=== PATIENT | female | born 1940 | race Caucasian/White ===

== ENCOUNTER 2017-03-22 20:33 | Inpatient (IN) | payer MEDICARE, MEDICAID ==
--- NOTE | 2017-03-22 21:59 | ED Physician Chart ---
ED Chief Complaint/HPI - Patient Information Date Seen:: 03/22/17 Time Seen:: 21:56 Chief Complaint:: COPD exacerbation History of Present Illness:: 76 yo difficulty breathing, 96% on 2LNC, 84% on rm air, cough and wheezing, congestion for 1 day. Fever 99.9 F. Allergies:: Allergies Allergy/AdvReac Type Severity Reaction Status Date / Time No Known Allergies Allergy Verified 03/22/17 21:14 Vitals:: Vital Signs - 8 hr 03/22/17 20:40 Temp 99.0 F HR 90 RR 20 BP 137/60 O2 Sat % 96 ED Past Medical History - Past Medical History Past Medical History: HTN (umbilica), DM, Asthma/COPD, CVA/TIA, Seizures, Dementia, Other (gastritis, colitis, umbilical hernia, anemia, hydrocephalus, ) Social History: Non Smoker, No Alcohol, No Drug Use Psychiatricy History: Schizophrenia, Other (psychosis) Family Medical History - Family Member Mother History Unknown: Yes ED Septic Shock - <6hrs of presentation: Vital Signs: Vital Signs - 8 hr 03/22/17 20:40 Temp 99.0 F HR 90 RR 20 BP 137/60 O2 Sat % 96
[2017-03-22 22:19] LABS: WHITE BLOOD COUNT 7.2 Th/cmm (4.8-10.8)
[2017-03-22 22:20] LABS: % BASOPHILS 0.4 % (0.0-2.0); % EOSINOPHILS 0.6 % (0.0-5.0); % LYMPHOCYTES 15.1 % (20.0-50.0); % MONOCYTES 9.6 % (2.0-10.0); % NEUTROPHILS 74.3 % (40.0-80.0); LYMPHOCYTE ABSOLUTE 1.1 Th/cmm (1.5-3.0); MEAN CORPUSCULAR HEMOGLOBIN 27.7 pg (27.0-31.0); MEAN CORPUSCULAR HGB CONC 32.6 pg (28.0-36.0); MEAN PLATELET VOLUME 6.5 fl; MONOCYTE ABSOLUTE 0.7 Th/cmm (0.3-1.0); NEUTROPHILE ABSOLUTE 5.4 Th/cmm (1.8-8.0); PLATELET COUNT 235 Th/cmm (150-400); RED CELL DISTRIBUTION WIDTH 12.6 % (11.5-20.0)
[2017-03-22 22:21] LABS: HEMATOCRIT 30.6 % (41.0-60)
[2017-03-22] MEDS ORDERED: Albuterol/Ipratropium Neb 3 ML AERS HHN ONE ×2 (22:46→23:07)
[2017-03-22 22:57] LABS: ANION GAP 8.7 (7.0-16.0); BUN - UREA NITROGEN 16 mg/dL (7-25); CARBON DIOXIDE 33.5 mEq/L (21.0-31.0); CHLORIDE 88 mEq/L (98-107); CREATININE - SERUM 0.6 mg/dL (0.6-1.2); GLUCOSE 158 mg/dL (70-105); POTASSIUM SERUM 4.2 mEq/L (3.5-5.1); SODIUM SERUM 126 mEq/L (136-145)
[2017-03-22 22:58] LABS: ALB/GLOB RATIO 1.2 (1.0-1.8); ALBUMIN 3.6 gm/dL (3.7-5.3); ALKALINE PHOSPHATASE 90 U/L (34-104); BILIRUBIN,TOTAL 0.2 mg/dL (0.3-1.0); CALCIUM SERUM 9.1 mg/dL (8.6-10.3); SGOT 18 U/L (13-39); SGPT/ALT 13 U/L (7-52); TOTAL PROTEIN,SERUM 6.6 gm/dL (6.0-8.3)
[2017-03-22] MEDS ORDERED: Sodium Chloride 0.9% 1,000 ML IV ONE (23:01)
[2017-03-22] MEDS ORDERED: Magnesium Hydroxide (MOM) 30 mL UDC PO PRN (23:25)
[2017-03-22] MEDS ORDERED: Albuterol Nebulizer 2.5mg/3mL HHN PRN (23:27)
[2017-03-23] MEDS ORDERED: Albuterol/Ipratropium Neb 3 ML AERS HHN ONE (04:05)
[2017-03-23] MEDS ORDERED: Albuterol Nebulizer 2.5mg/3mL HHN ONE (06:59)
[2017-03-23] MEDS: Albuterol Nebulizer 2.5mg/3mL HHN SCH ×2 (08:23→20:04)
--- NOTE | 2017-03-23 08:25 | Diagnostic Imaging Report ---
Portable chest x-ray HISTORY: Shortness of breath The heart appears somewhat generous. Elevation the right hemidiaphragm. Atherosclerotic calcination seen in the aortic arch. No acute focal pulmonary processes. No hilar or mediastinal abnormalities. Degenerative changes noted throughout the spine along with the scoliosis. IMPRESSION: 1. No acute focal pulmonary processes 2. Generous heart size with atherosclerotic vascular changes 3. Degenerative changes and scoliosis within the spine.
--- NOTE | 2017-03-23 11:24 | Internal Medicine Prog Note ---
Internal Medicine Subjective - Subjective Service Date: 03/23/17 ([id number] [facility] dictated) Internal Medicine Objective - Results Result Diagrams: 03/22/17 21:45 03/22/17 21:45 Recent Labs: Laboratory Last Values WBC 7.2 Th/cmm (4.8-10.8) 03/22/17 21:45 RBC 3.60 Mil/cmm (3.80-5.20) L 03/22/17 21:45 Hgb 10.0 gm/dL (12-16) L D 03/22/17 21:45 Hct 30.6 % (41.0-60) L D 03/22/17 21:45 MCV 85.0 fl (81-100) 03/22/17 21:45 MCH 27.7 pg (27.0-31.0) 03/22/17 21:45 MCHC Differential 32.6 pg (28.0-36.0) 03/22/17 21:45 RDW 12.6 % (11.5-20.0) 03/22/17 21:45 Plt Count 235 Th/cmm (150-400) 03/22/17 21:45 MPV 6.5 fl 03/22/17 21:45 Neutrophils % 74.3 % (40.0-80.0) 03/22/17 21:45 Lymphocytes % 15.1 % (20.0-50.0) L 03/22/17 21:45 Monocytes % 9.6 % (2.0-10.0) 03/22/17 21:45 Eosinophils % 0.6 % (0.0-5.0) 03/22/17 21:45 Basophils % 0.4 % (0.0-2.0) 03/22/17 21:45 Sodium 126 mEq/L (136-145) L 03/22/17 21:45 Potassium 4.2 mEq/L (3.5-5.1) 03/22/17 21:45 Chloride 88 mEq/L (98-107) L 03/22/17 21:45 Carbon Dioxide 33.5 mEq/L (21.0-31.0) H 03/22/17 21:45 Anion Gap 8.7 (7.0-16.0) 03/22/17 21:45 BUN 16 mg/dL (7-25) 03/22/17 21:45 Creatinine 0.6 mg/dL (0.6-1.2) 03/22/17 21:45 Est GFR ( Amer) TNP 03/22/17 21:45 Est GFR (Non-Af Amer) TNP 03/22/17 21:45 BUN/Creatinine Ratio 26.7 03/22/17 21:45 Glucose 158 mg/dL (70-105) H 03/22/17 21:45 Whole Bld Lactic Acid 0.77 mmol/L (0.60-1.99) 03/22/17 21:45 Calcium 9.1 mg/dL (8.6-10.3) 03/22/17 21:45 Total Bilirubin 0.2 mg/dL (0.3-1.0) L 03/22/17 21:45 AST 18 U/L (13-39) 03/22/17 21:45 ALT 13 U/L (7-52) 03/22/17 21:45 Alkaline Phosphatase 90 U/L (34-104) 03/22/17 21:45 Troponin I 0.02 ng/mL (0.01-0.05) 03/22/17 21:45 B-Natriuretic Peptide 63.4 pg/mL (5.0-100.0) 03/22/17 21:45 Total Protein 6.6 gm/dL (6.0-8.3) 03/22/17 21:45 Albumin 3.6 gm/dL (3.7-5.3) L 03/22/17 21:45 Globulin 3.0 gm/dL 03/22/17 21:45 Albumin/Globulin Ratio 1.2 (1.0-1.8) 03/22/17 21:45 - Physical Exam Vitals and I&O: Vital Signs Temp 97.6 F 03/23/17 08:09 Pulse 94 03/23/17 08:25 Resp 17 03/23/17 08:25 BP 150/54 03/23/17 08:09 Pulse Ox 99 03/23/17 08:25 Intake & Output 03/22/17 03/23/17 03/23/17 18:59 06:59 18:59 Intake Total 2100 Balance 2100 Intake: Intake, IV Amount 2100 Cefepime 1 gm In Dextrose 50 5% 50 ml @ 100 mls/hr IV Q12H [facility] Rx#:[id number] Sodium Chloride 0.9% 1, 1000 000 ml @ Wide Open IV . Q0M [facility] Rx#:[id number] Active Medications: Current Medications Acetaminophen (Tylenol) 650 mg PO Q4HR PRN PRN Reason: Pain or Fever >101 Stop: 05/21/17 23:24 Acetaminophen (Tylenol) 650 mg PO Q4H PRN PRN Reason: Pain Or Fever above 101 Stop: 05/21/17 23:26 Albuterol Sulfate (Albuterol 2.5mg/3ml Neb Ud) 2.5 mg HHN BIDRT [facility] Stop: 05/22/17 06:59 Last Admin: 03/23/17 08:23 Dose: 2.5 mg Albuterol Sulfate (Albuterol 2.5mg/3ml Neb Ud) 2.5 mg HHN Q2HRT PRN PRN Reason: Shortness of Breath or Wheeze Stop: 05/21/17 23:26 Ascorbic Acid (Vitamin C) 500 mg PO BID [facility] Stop: 05/22/17 08:59 Bisacodyl (Dulcolax 10 Mg Supp) 10 mg RC DAILY PRN PRN Reason: Constipation Stop: 05/21/17 23:24 Calcium Acetate (Phoslo) 1,334 mg PO TID [facility] Stop: 05/22/17 08:59 Cyanocobalamin (Vitamin B12) 1,000 mcg PO DAILY [facility] Stop: 05/22/17 08:59 Famotidine (Pepcid) 20 mg PO BID [facility] Stop: 05/22/17 08:59 Ferrous Sulfate (Iron) 325 mg PO BID [facility] Stop: 05/22/17 08:59 Fish Oil ([place] 3) 1,000 mg PO BID [facility] Stop: 05/22/17 08:59 Hydralazine HCl (Apresoline) 100 mg PO BID [facility] Stop: 05/22/17 08:59 Cefepime HCl 1 gm/ Dextrose 50 mls @ 100 mls/hr IV Q12H [facility] Stop: 05/21/17 23:29 Last Infusion: 03/23/17 00:05 Dose: Infused Sodium Chloride (Nacl 0.9%) 1,000 mls @ 80 mls/hr IV .[id number] [facility] Stop: 05/21/17 23:29 Last Admin: 03/23/17 00:00 Dose: 80 mls/hr Ipratropium [place] (Atrovent Neb 0.5mg/2.5ml) 0.5 mg IH Q2HRT PRN PRN Reason: Shortness of Breath or Wheeze Stop: 05/21/17 23:26 Lisinopril (Zestril) 20 mg PO BID [facility] Stop: 05/22/17 08:59 Magnesium Hydroxide (Milk Of Magnesia) 30 ml PO DAILY PRN PRN Reason: Constipation Stop: 05/21/17 23:24 Metformin HCl (Glucophage) 500 mg PO DAILY [facility] Stop: 05/22/17 08:59 Ondansetron HCl (Zofran) 4 mg IV Q8H PRN PRN Reason: Nausea / Vomiting Stop: 05/21/17 23:26 Risperidone (Risperdal) 1 mg PO HS [facility] PRN Reason: Protocol Stop: 05/22/17 20:59 Vitamin D (Vitamin D) 800 iu PO DAILY [facility] Stop: 05/22/17 08:59 - Procedures Procedures: Procedures Procedure Code Date ASPIR CURETT UTERUS NEC 69.59 10/29/11 BIOPSY OF CERVIX 59176 09/05/94 CERVICAL LES DESTRUC NEC 67.39 09/05/94 CONTINUOUS INVASIVE MECHANICAL VENTILATION <96 CONSEC HRS 96.71 09/01/14 D & C NEC 69.09 09/05/94 DILATION AND CURETTAGE 34135 10/29/11 EMERGENCY DEPT VISIT 14490 05/28/11 GENITAL SURGERY PROCEDURE 15877 09/05/94 HYMENORRHAPHY 70.76 09/05/94 HYMENOTOMY 70.11 09/05/94 INCISION OF HYMEN 60278 09/05/94 LAPAROSCOPIC CHOLECYSTECTOMY 51.23 11/29/06 LAPAROSCOPIC CHOLECYSTECTOMY 42908 11/29/06 OTHER OPEN UMBILICAL HERNIORRHAPHY 53.49 11/29/06 RPR UMBIL JIHAN BLOCK > 5 YR 75575 11/29/06
[2017-03-23] MEDS: Fish Oil 1,000 MG SGL PO SCH ×2 (12:58→18:02)
[2017-03-23] MEDS: Ferrous Sulfate 325 MG TAB PO SCH ×2 (12:58→18:03)
[2017-03-23] MEDS: Multivitamin w/ Minerals Tab PO SCH (12:58)
[2017-03-23] MEDS: Sodium Chloride 0.9% 1,000 ML IV SCH ×2 (13:01)
--- NOTE | 2017-03-23 13:31 | History & Physical ---
ADMIT DATE: 03/23/2017 CHIEF COMPLAINT: Shortness of breath and wheezing. HISTORY OF PRESENT ILLNESS: This is a 76-year-old female who is a resident of [facility], was brought here to [facility] for 1-day history of productive cough and wheezing and congestion x1 day, also associated with low grade fevers. Upon examination, the patient is awake, nonverbal febrile. For further management the patient will be admitted to the med-surg unit. PAST MEDICAL HISTORY: Hypertension, diabetes, asthma, COPD, history of CVA, TIA, seizures, dementia, gastritis, colitis, umbilical hernia, anemia hydrocephalus. SOCIAL HISTORY: The patient is a skilled nursing resident, requiring 24-hour nursing care. REVIEW OF SYSTEMS: Unable to obtain due to patient's mental status. PHYSICAL EXAMINATION: GENERAL: This is an elderly female, awake, nonverbal, no apparent distress. VITAL SIGNS: Temperature 97.6, heart rate 93, blood pressure 150/54, respirations 22, O2 95%. HEENT: Head; normocephalic, atraumatic. NECK: Supple. No mass. LUNGS: Rhonchi bilaterally rhythm. ABDOMEN: Soft, nontender. LABORATORY DATA: WBC 7.2, H and H 10.0 and 30.6, platelet of 235. Sodium 126, potassium 4.2, chloride 88, BUN 16, creatinine 0.6, albumin 3.6. DIAGNOSTICS: The patient had a chest x-ray done and the impression is no acute focal pulmonary processes, heart size with atherosclerotic vascular changes, degenerative changes and scoliosis within the spine. ASSESSMENT: Acute chronic obstructive pulmonary disease exacerbation. Possible pneumonia, hyponatremia, protein-calorie malnutrition, hypertension, diabetes, asthma, COPD, seizures, dementia, gastritis, umbilical hernia, anemia, schizophrenia. PLAN: The patient to be admitted to the telemetry unit. Keep patient on IV fluids for hydration. We will get some bronchodilators as well as supplemental oxygen. Keep patient on empiric IV antibiotics. We will continue to monitor this patient. JOB# [id number]
[2017-03-24] MEDS: Ipratropium Neb 0.5 mg/2.5 mL UD IH PRN ×3 (05:00→20:05)
[2017-03-24 05:59] LABS: % BASOPHILS 0.2 % (0.0-2.0); % EOSINOPHILS 0.4 % (0.0-5.0); % LYMPHOCYTES 14.1 % (20.0-50.0); % MONOCYTES 7.7 % (2.0-10.0); % NEUTROPHILS 77.6 % (40.0-80.0); HEMATOCRIT 30.1 % (41.0-60); LYMPHOCYTE ABSOLUTE 1.6 Th/cmm (1.5-3.0); MEAN CELL VOLUME 84.7 fl (81-100); MEAN CORPUSCULAR HEMOGLOBIN 28.1 pg (27.0-31.0); MEAN CORPUSCULAR HGB CONC 33.2 pg (28.0-36.0); MEAN PLATELET VOLUME 6.6 fl; MONOCYTE ABSOLUTE 0.9 Th/cmm (0.3-1.0); NEUTROPHILE ABSOLUTE 8.6 Th/cmm (1.8-8.0); PLATELET COUNT 205 Th/cmm (150-400); RED BLOOD COUNT 3.56 Mil/cmm (3.80-5.20); RED CELL DISTRIBUTION WIDTH 12.4 % (11.5-20.0)
[2017-03-24 06:00] LABS: WHITE BLOOD COUNT 11.1 Th/cmm (4.8-10.8)
[2017-03-24 06:17] LABS: ANION GAP 5.4 (7.0-16.0); BUN - UREA NITROGEN 12 mg/dL (7-25); CARBON DIOXIDE 34.7 mEq/L (21.0-31.0); CHLORIDE 93 mEq/L (98-107); CREATININE - SERUM 0.5 mg/dL (0.6-1.2); GLUCOSE 115 mg/dL (70-105); POTASSIUM SERUM 4.1 mEq/L (3.5-5.1); SODIUM SERUM 129 mEq/L (136-145)
[2017-03-24] MEDS: Albuterol Nebulizer 2.5mg/3mL HHN SCH ×2 (07:50→20:05)
[2017-03-24] MEDS: Sodium Chloride 0.9% 1,000 ML IV SCH ×2 (09:07→13:19)
[2017-03-24] MEDS: Fish Oil 1,000 MG SGL PO SCH ×2 (09:09→16:38)
[2017-03-24] MEDS: Ferrous Sulfate 325 MG TAB PO SCH ×2 (09:09→16:38)
[2017-03-24] MEDS: Multivitamin w/ Minerals Tab PO SCH (09:10)
--- NOTE | 2017-03-24 15:58 | Internal Medicine Prog Note ---
Internal Medicine Subjective - Subjective Service Date: 03/24/17 Patient seen and examined:: with staff Patient is:: awake, verbal, confused Patient Complaints of:: cough Per staff patient has:: tolerating meds Internal Medicine Objective - Results Result Diagrams: 03/24/17 05:15 03/24/17 05:15 Recent Labs: Laboratory Last Values WBC 11.1 Th/cmm (4.8-10.8) H D 03/24/17 05:15 RBC 3.56 Mil/cmm (3.80-5.20) L 03/24/17 05:15 Hgb 10.0 gm/dL (12-16) L 03/24/17 05:15 Hct 30.1 % (41.0-60) L 03/24/17 05:15 MCV 84.7 fl (81-100) 03/24/17 05:15 MCH 28.1 pg (27.0-31.0) 03/24/17 05:15 MCHC Differential 33.2 pg (28.0-36.0) 03/24/17 05:15 RDW 12.4 % (11.5-20.0) 03/24/17 05:15 Plt Count 205 Th/cmm (150-400) 03/24/17 05:15 MPV 6.6 fl 03/24/17 05:15 Neutrophils % 77.6 % (40.0-80.0) 03/24/17 05:15 Lymphocytes % 14.1 % (20.0-50.0) L 03/24/17 05:15 Monocytes % 7.7 % (2.0-10.0) 03/24/17 05:15 Eosinophils % 0.4 % (0.0-5.0) 03/24/17 05:15 Basophils % 0.2 % (0.0-2.0) 03/24/17 05:15 Sodium 129 mEq/L (136-145) L 03/24/17 05:15 Potassium 4.1 mEq/L (3.5-5.1) 03/24/17 05:15 Chloride 93 mEq/L (98-107) L 03/24/17 05:15 Carbon Dioxide 34.7 mEq/L (21.0-31.0) H 03/24/17 05:15 Anion Gap 5.4 (7.0-16.0) L 03/24/17 05:15 BUN 12 mg/dL (7-25) 03/24/17 05:15 Creatinine 0.5 mg/dL (0.6-1.2) L 03/24/17 05:15 Est GFR ( Amer) TNP 03/24/17 05:15 Est GFR (Non-Af Amer) TNP 03/24/17 05:15 BUN/Creatinine Ratio 24.0 03/24/17 05:15 Glucose 115 mg/dL (70-105) H 03/24/17 05:15 Whole Bld Lactic Acid 0.77 mmol/L (0.60-1.99) 03/22/17 21:45 Calcium 9.0 mg/dL (8.6-10.3) 03/24/17 05:15 Total Bilirubin 0.2 mg/dL (0.3-1.0) L 03/22/17 21:45 AST 18 U/L (13-39) 03/22/17 21:45 ALT 13 U/L (7-52) 03/22/17 21:45 Alkaline Phosphatase 90 U/L (34-104) 03/22/17 21:45 Troponin I 0.02 ng/mL (0.01-0.05) 03/22/17 21:45 B-Natriuretic Peptide 63.4 pg/mL (5.0-100.0) 03/22/17 21:45 Total Protein 6.6 gm/dL (6.0-8.3) 03/22/17 21:45 Albumin 3.6 gm/dL (3.7-5.3) L 03/22/17 21:45 Globulin 3.0 gm/dL 03/22/17 21:45 Albumin/Globulin Ratio 1.2 (1.0-1.8) 03/22/17 21:45 - Physical Exam Vitals and I&O: Vital Signs Temp 97 F 03/24/17 12:00 Pulse 75 03/24/17 12:00 Resp 19 03/24/17 12:00 BP 119/43 03/24/17 12:00 Pulse Ox 100 03/24/17 12:00 Intake & Output 03/23/17 03/24/17 03/24/17 18:59 06:59 18:59 Intake Total 1050 1250 Balance 1050 1250 Weight (lbs) 116 lb 1.6 oz Intake: Intake, IV Amount 1050 1050 Cefepime 1 gm In Dextrose 50 50 5% 50 ml @ 100 mls/hr IV Q12H [facility] Rx#:[id number] Sodium Chloride 0.9% 1, 1000 1000 000 ml @ 80 mls/hr IV . [id number] [facility] Rx#:[id number] Oral 200 Other: # Voids 4 # Bowel Movements 0 Active Medications: Current Medications Acetaminophen (Tylenol) 650 mg PO Q4HR PRN PRN Reason: Pain or Fever >101 Stop: 05/21/17 23:24 Acetaminophen (Tylenol) 650 mg PO Q4H PRN PRN Reason: Pain Or Fever above 101 Stop: 05/21/17 23:26 Albuterol Sulfate (Albuterol 2.5mg/3ml Neb Ud) 2.5 mg HHN BIDRT [facility] Stop: 05/22/17 06:59 Last Admin: 03/24/17 07:50 Dose: 2.5 mg Albuterol Sulfate (Albuterol 2.5mg/3ml Neb Ud) 2.5 mg HHN Q2HRT PRN PRN Reason: Shortness of Breath or Wheeze Stop: 05/21/17 23:26 Last Admin: 03/24/17 05:00 Dose: 2.5 mg Ascorbic Acid (Vitamin C) 500 mg PO BID [facility] Stop: 05/22/17 08:59 Last Admin: 03/24/17 09:10 Dose: 500 mg Bisacodyl (Dulcolax 10 Mg Supp) 10 mg RC DAILY PRN PRN Reason: Constipation Stop: 05/21/17 23:24 Calcium Acetate (Phoslo) 1,334 mg PO TID [facility] Stop: 05/22/17 08:59 Last Admin: 03/24/17 13:10 Dose: 1,334 mg Cyanocobalamin (Vitamin B12) 1,000 mcg PO DAILY [facility] Stop: 05/22/17 08:59 Last Admin: 03/24/17 09:15 Dose: 1,000 mcg Famotidine (Pepcid) 20 mg PO BID [facility] Stop: 05/22/17 08:59 Last Admin: 03/24/17 09:09 Dose: 20 mg Ferrous Sulfate (Iron) 325 mg PO BID [facility] Stop: 05/22/17 08:59 Last Admin: 03/24/17 09:09 Dose: 325 mg Fish Oil ([place] 3) 1,000 mg PO BID [facility] Stop: 05/22/17 08:59 Last Admin: 03/24/17 09:09 Dose: 1,000 mg Hydralazine HCl (Apresoline) 100 mg PO BID [facility] Stop: 05/22/17 08:59 Last Admin: 03/24/17 09:14 Dose: 100 mg Cefepime HCl 1 gm/ Dextrose 50 mls @ 100 mls/hr IV Q12H [facility] Stop: 05/21/17 23:29 Last Admin: 03/24/17 12:15 Dose: 100 mls/hr Sodium Chloride (Nacl 0.9%) 1,000 mls @ 40 mls/hr IV .Q24H [facility] Stop: 05/21/17 23:29 Last Admin: 03/24/17 13:19 Dose: 40 mls/hr Ipratropium [place] (Atrovent Neb 0.5mg/2.5ml) 0.5 mg IH Q2HRT PRN PRN Reason: Shortness of Breath or Wheeze Stop: 05/21/17 23:26 Last Admin: 03/24/17 07:57 Dose: 0.5 mg Lisinopril (Zestril) 20 mg PO BID [facility] Stop: 05/22/17 08:59 Last Admin: 03/24/17 09:10 Dose: 20 mg Magnesium Hydroxide (Milk Of Magnesia) 30 ml PO DAILY PRN PRN Reason: Constipation Stop: 05/21/17 23:24 Metformin HCl (Glucophage) 500 mg PO DAILY [facility] Stop: 05/22/17 08:59 Last Admin: 03/24/17 09:15 Dose: 500 mg Ondansetron HCl (Zofran) 4 mg IV Q8H PRN PRN Reason: Nausea / Vomiting Stop: 05/21/17 23:26 Risperidone (Risperdal) 1 mg PO HS [facility] PRN Reason: Protocol Stop: 05/22/17 20:59 Vitamin D (Vitamin D) 800 iu PO DAILY [facility] Stop: 05/22/17 08:59 Last Admin: 03/24/17 09:15 Dose: 800 iu General: weak, alert HEENT: NC/AT, PERRLA Neck: Supple Lungs: wheezing Cardiovascular: RRR, Normal S1, Normal S2, without murmur Abdomen: soft, non-tender, non-distended, positive bowel sound Extremities: excoriation Neurological: alert, unable to follow command - Procedures Procedures: Procedures Procedure Code Date ASPIR CURETT UTERUS NEC 69.59 10/29/11 BIOPSY OF CERVIX 43468 09/05/94 CERVICAL LES DESTRUC NEC 67.39 09/05/94 CONTINUOUS INVASIVE MECHANICAL VENTILATION <96 CONSEC HRS 96.71 09/01/14 D & C NEC 69.09 09/05/94 DILATION AND CURETTAGE 37952 10/29/11 EMERGENCY DEPT VISIT 58067 05/28/11 GENITAL SURGERY PROCEDURE 81309 09/05/94 HYMENORRHAPHY 70.76 09/05/94 HYMENOTOMY 70.11 09/05/94 INCISION OF HYMEN 52672 09/05/94 LAPAROSCOPIC CHOLECYSTECTOMY 51.23 11/29/06 LAPAROSCOPIC CHOLECYSTECTOMY 46542 11/29/06 OTHER OPEN UMBILICAL HERNIORRHAPHY 53.49 11/29/06 RPR UMBIL JIHAN BLOCK > 5 YR 19577 11/29/06 Internal Medicine Assmt/Plan - Assessment Assessment: acute copd exacerbation possible pna hyponatremia protein calorie malnutrition htn dm-2 asthma seizures dementia gastritis umbilical hernia anemia schizophrenia - Plan Plan: will add solumedrol continue with inhalation tx follow up cxr in am empiric ivabx follow up labs in am continue current orders
[2017-03-25 05:33] LABS: % BASOPHILS 0.1 % (0.0-2.0); % EOSINOPHILS 0.1 % (0.0-5.0); % LYMPHOCYTES 8.8 % (20.0-50.0); % MONOCYTES 1.3 % (2.0-10.0); % NEUTROPHILS 89.7 % (40.0-80.0); HEMATOCRIT 28.6 % (41.0-60); HEMOGLOBIN 9.7 gm/dL (12-16); LYMPHOCYTE ABSOLUTE 0.7 Th/cmm (1.5-3.0); MEAN CELL VOLUME 83.4 fl (81-100); MEAN CORPUSCULAR HEMOGLOBIN 28.1 pg (27.0-31.0); MEAN CORPUSCULAR HGB CONC 33.7 pg (28.0-36.0); MEAN PLATELET VOLUME 6.9 fl; MONOCYTE ABSOLUTE 0.1 Th/cmm (0.3-1.0); NEUTROPHILE ABSOLUTE 7.5 Th/cmm (1.8-8.0); PLATELET COUNT 197 Th/cmm (150-400); RED BLOOD COUNT 3.43 Mil/cmm (3.80-5.20); RED CELL DISTRIBUTION WIDTH 12.5 % (11.5-20.0)
[2017-03-25 05:38] LABS: WHITE BLOOD COUNT 8.3 Th/cmm (4.8-10.8)
[2017-03-25 05:43] LABS: ANION GAP 5.2 (7.0-16.0); BUN - UREA NITROGEN 16 mg/dL (7-25); CALCIUM SERUM 9.5 mg/dL (8.6-10.3); CARBON DIOXIDE 37.5 mEq/L (21.0-31.0); CHLORIDE 94 mEq/L (98-107); CREATININE - SERUM 0.6 mg/dL (0.6-1.2); GLUCOSE 209 mg/dL (70-105); POTASSIUM SERUM 4.7 mEq/L (3.5-5.1); SODIUM SERUM 132 mEq/L (136-145)
[2017-03-25] MEDS: Albuterol Nebulizer 2.5mg/3mL HHN SCH ×2 (06:52→21:02)
[2017-03-25] MEDS: Ipratropium Neb 0.5 mg/2.5 mL UD IH PRN (06:53)
[2017-03-25] MEDS: Multivitamin w/ Minerals Tab PO SCH (08:56)
[2017-03-25] MEDS: Ferrous Sulfate 325 MG TAB PO SCH ×2 (08:57→16:25)
[2017-03-25] MEDS: Fish Oil 1,000 MG SGL PO SCH ×2 (08:57→16:25)
--- NOTE | 2017-03-25 09:22 | Diagnostic Imaging Report ---
CHEST X-RAY: AP view INDICATION: Wheezing COMPARISON: 03/22/2017 FINDINGS: Increased initial lung markings are noted with no focal solid or pleural effusions. Heart size is at the upper limits of normal. Atherosclerosis is noted. IMPRESSION: Increased interstitial lung markings suggestive of a mild degree of pulmonary vascular congestion. Faint infiltrative right infrahilar region cannot be excluded. Atherosclerotic vascular disease.
[2017-03-25 13:35] LABS: A1C % 7.2 % (4.0-6.0)
--- NOTE | 2017-03-25 13:57 | Internal Medicine Prog Note ---
Internal Medicine Subjective - Subjective Service Date: 03/25/17 Patient is:: awake, verbal, confused Patient Complaints of:: cough Per staff patient has:: tolerating meds Internal Medicine Objective - Results Result Diagrams: 03/25/17 05:15 03/25/17 05:15 Recent Labs: Laboratory Last Values WBC 8.3 Th/cmm (4.8-10.8) D 03/25/17 05:15 RBC 3.43 Mil/cmm (3.80-5.20) L 03/25/17 05:15 Hgb 9.7 gm/dL (12-16) L 03/25/17 05:15 Hct 28.6 % (41.0-60) L 03/25/17 05:15 MCV 83.4 fl (81-100) 03/25/17 05:15 MCH 28.1 pg (27.0-31.0) 03/25/17 05:15 MCHC Differential 33.7 pg (28.0-36.0) 03/25/17 05:15 RDW 12.5 % (11.5-20.0) 03/25/17 05:15 Plt Count 197 Th/cmm (150-400) 03/25/17 05:15 MPV 6.9 fl 03/25/17 05:15 Neutrophils % 89.7 % (40.0-80.0) H 03/25/17 05:15 Lymphocytes % 8.8 % (20.0-50.0) L 03/25/17 05:15 Monocytes % 1.3 % (2.0-10.0) L 03/25/17 05:15 Eosinophils % 0.1 % (0.0-5.0) 03/25/17 05:15 Basophils % 0.1 % (0.0-2.0) 03/25/17 05:15 Sodium 132 mEq/L (136-145) L 03/25/17 05:15 Potassium 4.7 mEq/L (3.5-5.1) 03/25/17 05:15 Chloride 94 mEq/L (98-107) L 03/25/17 05:15 Carbon Dioxide 37.5 mEq/L (21.0-31.0) H 03/25/17 05:15 Anion Gap 5.2 (7.0-16.0) L 03/25/17 05:15 BUN 16 mg/dL (7-25) 03/25/17 05:15 Creatinine 0.6 mg/dL (0.6-1.2) 03/25/17 05:15 Est GFR ( Amer) TNP 03/25/17 05:15 Est GFR (Non-Af Amer) TNP 03/25/17 05:15 BUN/Creatinine Ratio 26.7 03/25/17 05:15 Glucose 209 mg/dL (70-105) H 03/25/17 05:15 Hemoglobin A1c % 7.2 % (4.0-6.0) H 03/25/17 05:15 Whole Bld Lactic Acid 0.77 mmol/L (0.60-1.99) 03/22/17 21:45 Calcium 9.5 mg/dL (8.6-10.3) 03/25/17 05:15 Total Bilirubin 0.2 mg/dL (0.3-1.0) L 03/22/17 21:45 AST 18 U/L (13-39) 03/22/17 21:45 ALT 13 U/L (7-52) 03/22/17 21:45 Alkaline Phosphatase 90 U/L (34-104) 03/22/17 21:45 Troponin I 0.02 ng/mL (0.01-0.05) 03/22/17 21:45 B-Natriuretic Peptide 365.0 pg/mL (5.0-100.0) H 03/25/17 05:15 Total Protein 6.6 gm/dL (6.0-8.3) 03/22/17 21:45 Albumin 3.6 gm/dL (3.7-5.3) L 03/22/17 21:45 Globulin 3.0 gm/dL 03/22/17 21:45 Albumin/Globulin Ratio 1.2 (1.0-1.8) 03/22/17 21:45 - Physical Exam Vitals and I&O: Vital Signs Temp 98.2 F 03/25/17 12:02 Pulse 114 03/25/17 12:29 Resp 18 03/25/17 12:02 BP 170/90 03/25/17 12:02 Pulse Ox 97 03/25/17 12:02 Intake & Output 03/24/17 03/25/1703/25/18 18:59 06:59 18:59 Intake Total 200 50 Balance 200 50 Weight (lbs) 122 lb 119 lb Intake: Intake, IV Amount 50 50 Cefepime 1 gm In Dextrose 50 50 5% 50 ml @ 100 mls/hr IV Q12H [facility] Rx#:[id number] Oral 150 Other: # Voids 3 # Bowel Movements 1 Active Medications: Current Medications Acetaminophen (Tylenol) 650 mg PO Q4HR PRN PRN Reason: Pain or Fever >101 Stop: 05/21/17 23:24 Acetaminophen (Tylenol) 650 mg PO Q4H PRN PRN Reason: Pain Or Fever above 101 Stop: 05/21/17 23:26 Albuterol Sulfate (Albuterol 2.5mg/3ml Neb Ud) 2.5 mg HHN BIDRT [facility] Stop: 05/22/17 06:59 Last Admin: 03/25/17 06:52 Dose: 2.5 mg Albuterol Sulfate (Albuterol 2.5mg/3ml Neb Ud) 2.5 mg HHN Q2HRT PRN PRN Reason: Shortness of Breath or Wheeze Stop: 05/21/17 23:26 Last Admin: 03/24/17 05:00 Dose: 2.5 mg Ascorbic Acid (Vitamin C) 500 mg PO BID [facility] Stop: 05/22/17 08:59 Last Admin: 03/25/17 08:57 Dose: 500 mg Bisacodyl (Dulcolax 10 Mg Supp) 10 mg RC DAILY PRN PRN Reason: Constipation Stop: 05/21/17 23:24 Calcium Acetate (Phoslo) 1,334 mg PO TID [facility] Stop: 05/22/17 08:59 Last Admin: 03/25/17 13:39 Dose: 1,334 mg Cyanocobalamin (Vitamin B12) 1,000 mcg PO DAILY [facility] Stop: 05/22/17 08:59 Last Admin: 03/25/17 08:57 Dose: 1,000 mcg Famotidine (Pepcid) 20 mg PO BID [facility] Stop: 05/22/17 08:59 Last Admin: 03/25/17 08:57 Dose: 20 mg Ferrous Sulfate (Iron) 325 mg PO BID [facility] Stop: 05/22/17 08:59 Last Admin: 03/25/17 08:57 Dose: 325 mg Fish Oil ([place] 3) 1,000 mg PO BID [facility] Stop: 05/22/17 08:59 Last Admin: 03/25/17 08:57 Dose: 1,000 mg Hydralazine HCl (Apresoline) 100 mg PO BID [facility] Stop: 05/22/17 08:59 Last Admin: 03/25/17 08:56 Dose: 100 mg Cefepime HCl 1 gm/ Dextrose 50 mls @ 100 mls/hr IV Q12H [facility] Stop: 05/21/17 23:29 Last Admin: 03/25/17 11:57 Dose: 100 mls/hr Sodium Chloride (Nacl 0.9%) 1,000 mls @ 40 mls/hr IV .Q24H [facility] Stop: 05/21/17 23:29 Last Admin: 03/24/17 13:19 Dose: 40 mls/hr Ipratropium [place] (Atrovent Neb 0.5mg/2.5ml) 0.5 mg IH Q2HRT PRN PRN Reason: Shortness of Breath or Wheeze Stop: 05/21/17 23:26 Last Admin: 03/25/17 06:53 Dose: 0.5 mg Lisinopril (Zestril) 20 mg PO BID [facility] Stop: 05/22/17 08:59 Last Admin: 03/25/17 08:57 Dose: 20 mg Magnesium Hydroxide (Milk Of Magnesia) 30 ml PO DAILY PRN PRN Reason: Constipation Stop: 05/21/17 23:24 Metformin HCl (Glucophage) 500 mg PO DAILY [facility] Stop: 05/22/17 08:59 Last Admin: 03/25/17 08:57 Dose: 500 mg Methylprednisolone Sodium Succinate (Solu-Medrol) 80 mg IVP Q12HR [facility] Stop: 05/23/17 20:59 Last Admin: 03/25/17 08:57 Dose: 80 mg Ondansetron HCl (Zofran) 4 mg IV Q8H PRN PRN Reason: Nausea / Vomiting Stop: 05/21/17 23:26 Risperidone (Risperdal) 1 mg PO HS ROSS PRN Reason: Protocol Stop: 05/22/17 20:59 Vitamin D (Vitamin D) 800 iu PO DAILY [facility] Stop: 05/22/17 08:59 Last Admin: 03/25/17 08:56 Dose: 800 iu General: weak, alert HEENT: NC/AT, PERRLA Neck: Supple Lungs: wheezing Cardiovascular: RRR, Normal S1, Normal S2, without murmur Abdomen: soft, non-tender, non-distended, positive bowel sound Extremities: excoriation Neurological: alert, unable to follow command - Procedures Procedures: Procedures Procedure Code Date ASPIR CURETT UTERUS NEC 69.59 10/29/11 BIOPSY OF CERVIX 46139 09/05/94 CERVICAL LES DESTRUC NEC 67.39 09/05/94 CONTINUOUS INVASIVE MECHANICAL VENTILATION <96 CONSEC HRS 96.71 09/01/14 D & C NEC 69.09 09/05/94 DILATION AND CURETTAGE 57251 10/29/11 EMERGENCY DEPT VISIT 57355 05/28/11 GENITAL SURGERY PROCEDURE 52902 09/05/94 HYMENORRHAPHY 70.76 09/05/94 HYMENOTOMY 70.11 09/05/94 INCISION OF HYMEN 32409 09/05/94 LAPAROSCOPIC CHOLECYSTECTOMY 51.23 11/29/06 LAPAROSCOPIC CHOLECYSTECTOMY 22003 11/29/06 OTHER OPEN UMBILICAL HERNIORRHAPHY 53.49 11/29/06 RPR UMBIL JIHAN BLOCK > 5 YR 51686 11/29/06 Internal Medicine Assmt/Plan - Assessment Assessment: acute copd exacerbation possible pna hyponatremia protein calorie malnutrition htn dm-2 asthma seizures dementia gastritis umbilical hernia anemia schizophrenia - Plan Plan: will add solumedrol continue with inhalation tx follow up cxr in am empiric ivabx follow up labs in am continue current orders
[2017-03-26 05:19] LABS: % BASOPHILS 0.1 % (0.0-2.0); % EOSINOPHILS 0.1 % (0.0-5.0); % LYMPHOCYTES 11.3 % (20.0-50.0); % NEUTROPHILS 83.5 % (40.0-80.0); HEMATOCRIT 26.1 % (41.0-60); HEMOGLOBIN 8.6 gm/dL (12-16); LYMPHOCYTE ABSOLUTE 0.8 Th/cmm (1.5-3.0); MEAN CELL VOLUME 84.5 fl (81-100); MEAN CORPUSCULAR HEMOGLOBIN 27.9 pg (27.0-31.0); MEAN PLATELET VOLUME 7.2 fl; MONOCYTE ABSOLUTE 0.3 Th/cmm (0.3-1.0); NEUTROPHILE ABSOLUTE 5.7 Th/cmm (1.8-8.0); PLATELET COUNT 228 Th/cmm (150-400); RED BLOOD COUNT 3.09 Mil/cmm (3.80-5.20); RED CELL DISTRIBUTION WIDTH 12.3 % (11.5-20.0); WHITE BLOOD COUNT 6.8 Th/cmm (4.8-10.8)
[2017-03-26 05:31] LABS: ANION GAP 6.6 (7.0-16.0); BUN - UREA NITROGEN 29 mg/dL (7-25); CALCIUM SERUM 9.3 mg/dL (8.6-10.3); CARBON DIOXIDE 36.8 mEq/L (21.0-31.0); CHLORIDE 96 mEq/L (98-107); CREATININE - SERUM 0.8 mg/dL (0.6-1.2); GLUCOSE 280 mg/dL (70-105); POTASSIUM SERUM 4.4 mEq/L (3.5-5.1); SODIUM SERUM 135 mEq/L (136-145)
[2017-03-26] MEDS: Albuterol Nebulizer 2.5mg/3mL HHN SCH ×2 (06:42→19:40)
[2017-03-26] MEDS: Ipratropium Neb 0.5 mg/2.5 mL UD IH PRN (06:43)
[2017-03-26] MEDS: Ferrous Sulfate 325 MG TAB PO SCH ×2 (08:11→16:23)
[2017-03-26] MEDS: Fish Oil 1,000 MG SGL PO SCH ×2 (08:11→16:23)
[2017-03-26] MEDS: Multivitamin w/ Minerals Tab PO SCH (08:12)
[2017-03-26] MEDS: Sodium Chloride 0.9% 1,000 ML IV SCH (10:06)
[2017-03-26] MEDS ORDERED: Sodium Chloride 0.9% 1,000 ML IV SCH (12:57)
--- NOTE | 2017-03-26 13:20 | Internal Medicine Prog Note ---
Internal Medicine Subjective - Subjective Service Date: 03/26/17 Patient is:: awake, verbal, confused Patient Complaints of:: cough Per staff patient has:: tolerating meds Internal Medicine Objective - Results Result Diagrams: 03/26/17 05:00 03/26/17 05:00 Recent Labs: Laboratory Last Values WBC 6.8 Th/cmm (4.8-10.8) 03/26/17 05:00 RBC 3.09 Mil/cmm (3.80-5.20) L 03/26/17 05:00 Hgb 8.6 gm/dL (12-16) L 03/26/17 05:00 Hct 26.1 % (41.0-60) L 03/26/17 05:00 MCV 84.5 fl (81-100) 03/26/17 05:00 MCH 27.9 pg (27.0-31.0) 03/26/17 05:00 MCHC Differential 33.0 pg (28.0-36.0) 03/26/17 05:00 RDW 12.3 % (11.5-20.0) 03/26/17 05:00 Plt Count 228 Th/cmm (150-400) 03/26/17 05:00 MPV 7.2 fl 03/26/17 05:00 Neutrophils % 83.5 % (40.0-80.0) H 03/26/17 05:00 Lymphocytes % 11.3 % (20.0-50.0) L 03/26/17 05:00 Monocytes % 5.0 % (2.0-10.0) 03/26/17 05:00 Eosinophils % 0.1 % (0.0-5.0) 03/26/17 05:00 Basophils % 0.1 % (0.0-2.0) 03/26/17 05:00 Sodium 135 mEq/L (136-145) L 03/26/17 05:00 Potassium 4.4 mEq/L (3.5-5.1) 03/26/17 05:00 Chloride 96 mEq/L (98-107) L 03/26/17 05:00 Carbon Dioxide 36.8 mEq/L (21.0-31.0) H 03/26/17 05:00 Anion Gap 6.6 (7.0-16.0) L 03/26/17 05:00 BUN 29 mg/dL (7-25) H 03/26/17 05:00 Creatinine 0.8 mg/dL (0.6-1.2) 03/26/17 05:00 Est GFR ( Amer) TNP 03/26/17 05:00 Est GFR (Non-Af Amer) TNP 03/26/17 05:00 BUN/Creatinine Ratio 36.3 03/26/17 05:00 Glucose 280 mg/dL (70-105) H 03/26/17 05:00 Hemoglobin A1c % 7.2 % (4.0-6.0) H 03/25/17 05:15 Whole Bld Lactic Acid 0.77 mmol/L (0.60-1.99) 03/22/17 21:45 Calcium 9.3 mg/dL (8.6-10.3) 03/26/17 05:00 Total Bilirubin 0.2 mg/dL (0.3-1.0) L 03/22/17 21:45 AST 18 U/L (13-39) 03/22/17 21:45 ALT 13 U/L (7-52) 03/22/17 21:45 Alkaline Phosphatase 90 U/L (34-104) 03/22/17 21:45 Troponin I 0.02 ng/mL (0.01-0.05) 03/22/17 21:45 B-Natriuretic Peptide 365.0 pg/mL (5.0-100.0) H 03/25/17 05:15 Total Protein 6.6 gm/dL (6.0-8.3) 03/22/17 21:45 Albumin 3.6 gm/dL (3.7-5.3) L 03/22/17 21:45 Globulin 3.0 gm/dL 03/22/17 21:45 Albumin/Globulin Ratio 1.2 (1.0-1.8) 03/22/17 21:45 - Physical Exam Vitals and I&O: Vital Signs Temp 97.5 F 03/26/17 12:00 Pulse 102 03/26/17 12:23 Resp 17 03/26/17 12:00 BP 177/82 03/26/17 12:00 Pulse Ox 94 03/26/17 12:00 Intake & Output 03/25/17 03/26/1718 18:59 06:59 18:59 Intake Total 1050 50 Balance 1050 50 Weight (lbs) 119 lb 119 lb Intake: Intake, IV Amount 1050 50 Cefepime 1 gm In Dextrose 50 50 5% 50 ml @ 100 mls/hr IV Q12H [facility] Rx#:[id number] Sodium Chloride 0.9% 1, 1000 000 ml @ 40 mls/hr IV . Q24H [facility] Rx#:[id number] Other: # Voids 3 2 # Bowel Movements 1 Active Medications: Current Medications Acetaminophen (Tylenol) 650 mg PO Q4HR PRN PRN Reason: Pain or Fever >101 Stop: 05/21/17 23:24 Last Admin: 03/25/17 21:01 Dose: 650 mg Acetaminophen (Tylenol) 650 mg PO Q4H PRN PRN Reason: Pain Or Fever above 101 Stop: 05/21/17 23:26 Albuterol Sulfate (Albuterol 2.5mg/3ml Neb Ud) 2.5 mg HHN BIDRT [facility] Stop: 05/22/17 06:59 Last Admin: 03/26/17 06:42 Dose: 2.5 mg Albuterol Sulfate (Albuterol 2.5mg/3ml Neb Ud) 2.5 mg HHN Q2HRT PRN PRN Reason: Shortness of Breath or Wheeze Stop: 05/21/17 23:26 Last Admin: 03/24/17 05:00 Dose: 2.5 mg Ascorbic Acid (Vitamin C) 500 mg PO BID [facility] Stop: 05/22/17 08:59 Last Admin: 03/26/17 08:10 Dose: 500 mg Bisacodyl (Dulcolax 10 Mg Supp) 10 mg RC DAILY PRN PRN Reason: Constipation Stop: 05/21/17 23:24 Calcium Acetate (Phoslo) 1,334 mg PO TID [facility] Stop: 05/22/17 08:59 Last Admin: 03/26/17 08:10 Dose: 1,334 mg Cyanocobalamin (Vitamin B12) 1,000 mcg PO DAILY [facility] Stop: 05/22/17 08:59 Last Admin: 03/26/17 08:11 Dose: 1,000 mcg Famotidine (Pepcid) 20 mg PO BID [facility] Stop: 05/22/17 08:59 Last Admin: 03/26/17 08:11 Dose: 20 mg Ferrous Sulfate (Iron) 325 mg PO BID [facility] Stop: 05/22/17 08:59 Last Admin: 03/26/17 08:11 Dose: 325 mg Fish Oil ([place] 3) 1,000 mg PO BID [facility] Stop: 05/22/17 08:59 Last Admin: 03/26/17 08:11 Dose: 1,000 mg Hydralazine HCl (Apresoline) 100 mg PO TID [facility] Stop: 05/25/17 13:59 Cefepime HCl 1 gm/ Dextrose 50 mls @ 100 mls/hr IV Q12H [facility] Stop: 05/21/17 23:29 Last Admin: 03/26/17 11:17 Dose: 100 mls/hr Sodium Chloride (Nacl 0.9%) 1,000 mls @ 70 mls/hr IV .[id number] [facility] Stop: 05/21/17 23:29 Ipratropium [place] (Atrovent Neb 0.5mg/2.5ml) 0.5 mg IH Q2HRT PRN PRN Reason: Shortness of Breath or Wheeze Stop: 05/21/17 23:26 Last Admin: 03/26/17 06:43 Dose: 0.5 mg Losartan Potassium (Cozaar) 50 mg PO DAILY [facility] Stop: 05/26/17 08:59 Magnesium Hydroxide (Milk Of Magnesia) 30 ml PO DAILY PRN PRN Reason: Constipation Stop: 05/21/17 23:24 Methylprednisolone Sodium Succinate (Solu-Medrol) 60 mg IVP Q12HR [facility] Stop: 05/23/17 20:59 Ondansetron HCl (Zofran) 4 mg IV Q8H PRN PRN Reason: Nausea / Vomiting Stop: 05/21/17 23:26 Risperidone (Risperdal) 1 mg PO HS [facility] PRN Reason: Protocol Stop: 05/22/17 20:59 Vitamin D (Vitamin D) 800 iu PO DAILY [facility] Stop: 05/22/17 08:59 Last Admin: 03/26/17 08:12 Dose: 800 iu General: weak, alert HEENT: NC/AT, PERRLA Neck: Supple Lungs: wheezing Cardiovascular: RRR, Normal S1, Normal S2, without murmur Abdomen: soft, non-tender, non-distended, positive bowel sound Extremities: excoriation Neurological: alert, unable to follow command - Procedures Procedures: Procedures Procedure Code Date ASPIR CURETT UTERUS NEC 69.59 10/29/11 BIOPSY OF CERVIX 46367 09/05/94 CERVICAL LES DESTRUC NEC 67.39 09/05/94 CONTINUOUS INVASIVE MECHANICAL VENTILATION <96 CONSEC HRS 96.71 09/01/14 D & C NEC 69.09 09/05/94 DILATION AND CURETTAGE 76205 10/29/11 EMERGENCY DEPT VISIT 81741 05/28/11 GENITAL SURGERY PROCEDURE 45804 09/05/94 HYMENORRHAPHY 70.76 09/05/94 HYMENOTOMY 70.11 09/05/94 INCISION OF HYMEN 78804 09/05/94 LAPAROSCOPIC CHOLECYSTECTOMY 51.23 11/29/06 LAPAROSCOPIC CHOLECYSTECTOMY 55111 11/29/06 OTHER OPEN UMBILICAL HERNIORRHAPHY 53.49 11/29/06 RPR UMBIL JIHAN BLOCK > 5 YR 25725 11/29/06 Internal Medicine Assmt/Plan - Assessment Assessment: acute copd exacerbation possible pna hyponatremia protein calorie malnutrition htn dm-2 asthma seizures dementia gastritis umbilical hernia anemia schizophrenia - Plan Plan: LTAC EVAL continue with inhalation tx follow up cxr in am empiric ivabx follow up labs in am continue current orders
[2017-03-27 07:29] LABS: % BASOPHILS 0.1 % (0.0-2.0); % EOSINOPHILS 0.1 % (0.0-5.0); % MONOCYTES 5.7 % (2.0-10.0); % NEUTROPHILS 83.1 % (40.0-80.0); HEMATOCRIT 27.8 % (41.0-60); LYMPHOCYTE ABSOLUTE 0.9 Th/cmm (1.5-3.0); MEAN CELL VOLUME 85.5 fl (81-100); MEAN CORPUSCULAR HEMOGLOBIN 27.6 pg (27.0-31.0); MEAN CORPUSCULAR HGB CONC 32.3 pg (28.0-36.0); MEAN PLATELET VOLUME 6.3 fl; MONOCYTE ABSOLUTE 0.5 Th/cmm (0.3-1.0); NEUTROPHILE ABSOLUTE 6.5 Th/cmm (1.8-8.0); PLATELET COUNT 229 Th/cmm (150-400); RED BLOOD COUNT 3.26 Mil/cmm (3.80-5.20); RED CELL DISTRIBUTION WIDTH 12.9 % (11.5-20.0); WHITE BLOOD COUNT 7.9 Th/cmm (4.8-10.8)
[2017-03-27 07:44] LABS: ANION GAP 4.5 (7.0-16.0); BUN - UREA NITROGEN 31 mg/dL (7-25); CALCIUM SERUM 9.5 mg/dL (8.6-10.3); CARBON DIOXIDE 39.6 mEq/L (21.0-31.0); CHLORIDE 98 mEq/L (98-107); CREATININE - SERUM 0.6 mg/dL (0.6-1.2); GLUCOSE 172 mg/dL (70-105); MAGNESIUM 1.9 mg/dL (1.9-2.7); POTASSIUM SERUM 4.1 mEq/L (3.5-5.1); SODIUM SERUM 138 mEq/L (136-145)
[2017-03-27] MEDS: Albuterol Nebulizer 2.5mg/3mL HHN SCH ×2 (07:48→19:09)
[2017-03-27] MEDS: Multivitamin w/ Minerals Tab PO SCH (08:16)
[2017-03-27] MEDS: Ferrous Sulfate 325 MG TAB PO SCH ×2 (08:16→17:43)
[2017-03-27] MEDS: Fish Oil 1,000 MG SGL PO SCH ×2 (08:17→17:43)
--- NOTE | 2017-03-27 14:37 | Internal Medicine Prog Note ---
Internal Medicine Subjective - Subjective Service Date: 03/27/17 (dc summary ) Patient is:: awake, verbal, confused Patient Complaints of:: cough Per staff patient has:: tolerating meds Internal Medicine Objective - Results Result Diagrams: 03/27/17 07:00 03/27/17 07:00 Recent Labs: Laboratory Last Values WBC 7.9 Th/cmm (4.8-10.8) 03/27/17 07:00 RBC 3.26 Mil/cmm (3.80-5.20) L 03/27/17 07:00 Hgb 9.0 gm/dL (12-16) L 03/27/17 07:00 Hct 27.8 % (41.0-60) L 03/27/17 07:00 MCV 85.5 fl (81-100) 03/27/17 07:00 MCH 27.6 pg (27.0-31.0) 03/27/17 07:00 MCHC Differential 32.3 pg (28.0-36.0) 03/27/17 07:00 RDW 12.9 % (11.5-20.0) 03/27/17 07:00 Plt Count 229 Th/cmm (150-400) 03/27/17 07:00 MPV 6.3 fl 03/27/17 07:00 Neutrophils % 83.1 % (40.0-80.0) H 03/27/17 07:00 Lymphocytes % 11.0 % (20.0-50.0) L 03/27/17 07:00 Monocytes % 5.7 % (2.0-10.0) 03/27/17 07:00 Eosinophils % 0.1 % (0.0-5.0) 03/27/17 07:00 Basophils % 0.1 % (0.0-2.0) 03/27/17 07:00 Sodium 138 mEq/L (136-145) 03/27/17 07:00 Potassium 4.1 mEq/L (3.5-5.1) 03/27/17 07:00 Chloride 98 mEq/L (98-107) 03/27/17 07:00 Carbon Dioxide 39.6 mEq/L (21.0-31.0) H 03/27/17 07:00 Anion Gap 4.5 (7.0-16.0) L 03/27/17 07:00 BUN 31 mg/dL (7-25) H 03/27/17 07:00 Creatinine 0.6 mg/dL (0.6-1.2) 03/27/17 07:00 Est GFR ( Amer) TNP 03/27/17 07:00 Est GFR (Non-Af Amer) TNP 03/27/17 07:00 BUN/Creatinine Ratio 51.7 03/27/17 07:00 Glucose 172 mg/dL (70-105) H 03/27/17 07:00 Hemoglobin A1c % 7.2 % (4.0-6.0) H 03/25/17 05:15 Whole Bld Lactic Acid 0.77 mmol/L (0.60-1.99) 03/22/17 21:45 Calcium 9.5 mg/dL (8.6-10.3) 03/27/17 07:00 Magnesium 1.9 mg/dL (1.9-2.7) 03/27/17 07:00 Total Bilirubin 0.2 mg/dL (0.3-1.0) L 03/22/17 21:45 AST 18 U/L (13-39) 03/22/17 21:45 ALT 13 U/L (7-52) 03/22/17 21:45 Alkaline Phosphatase 90 U/L (34-104) 03/22/17 21:45 Troponin I 0.02 ng/mL (0.01-0.05) 03/22/17 21:45 B-Natriuretic Peptide 730.0 pg/mL (5.0-100.0) H 03/27/17 07:00 Total Protein 6.6 gm/dL (6.0-8.3) 03/22/17 21:45 Albumin 3.6 gm/dL (3.7-5.3) L 03/22/17 21:45 Globulin 3.0 gm/dL 03/22/17 21:45 Albumin/Globulin Ratio 1.2 (1.0-1.8) 03/22/17 21:45 - Physical Exam Vitals and I&O: Vital Signs Temp 97.2 F 03/27/17 12:00 Pulse 94 03/27/17 12:00 Resp 20 03/27/17 12:00 BP 168/95 03/27/17 12:00 Pulse Ox 98 03/27/17 12:00 Intake & Output 03/26/17 03/27/17 03/27/17 18:59 06:59 18:59 Intake Total 100 500 30 Balance 100 500 30 Weight (lbs) 119 lb 120 lb Intake: Intake, IV Amount 100 50 Cefepime 1 gm In Dextrose 100 50 5% 50 ml @ 100 mls/hr IV Q12H [facility] Rx#:[id number] Oral 450 30 Other: # Voids 4 2 # Bowel Movements 1 1 Active Medications: Current Medications Acetaminophen (Tylenol) 650 mg PO Q4HR PRN PRN Reason: Pain or Fever >101 Stop: 05/21/17 23:24 Last Admin: 03/25/17 21:01 Dose: 650 mg Acetaminophen (Tylenol) 650 mg PO Q4H PRN PRN Reason: Pain Or Fever above 101 Stop: 05/21/17 23:26 Albuterol Sulfate (Albuterol 2.5mg/3ml Neb Ud) 2.5 mg HHN BIDRT [facility] Stop: 05/22/17 06:59 Last Admin: 03/27/17 07:48 Dose: 2.5 mg Albuterol Sulfate (Albuterol 2.5mg/3ml Neb Ud) 2.5 mg HHN Q2HRT PRN PRN Reason: Shortness of Breath or Wheeze Stop: 05/21/17 23:26 Last Admin: 03/24/17 05:00 Dose: 2.5 mg Ascorbic Acid (Vitamin C) 500 mg PO BID [facility] Stop: 05/22/17 08:59 Last Admin: 03/27/17 08:15 Dose: 500 mg Bisacodyl (Dulcolax 10 Mg Supp) 10 mg RC DAILY PRN PRN Reason: Constipation Stop: 05/21/17 23:24 Calcium Acetate (Phoslo) 1,334 mg PO TID [facility] Stop: 05/22/17 08:59 Last Admin: 03/27/17 08:15 Dose: 1,334 mg Cyanocobalamin (Vitamin B12) 1,000 mcg PO DAILY [facility] Stop: 05/22/17 08:59 Last Admin: 03/27/17 08:17 Dose: 1,000 mcg Famotidine (Pepcid) 20 mg PO BID [facility] Stop: 05/22/17 08:59 Last Admin: 03/27/17 08:17 Dose: 20 mg Ferrous Sulfate (Iron) 325 mg PO BID [facility] Stop: 05/22/17 08:59 Last Admin: 03/27/17 08:16 Dose: 325 mg Fish Oil ([place] 3) 1,000 mg PO BID [facility] Stop: 05/22/17 08:59 Last Admin: 03/27/17 08:17 Dose: 1,000 mg Hydralazine HCl (Apresoline) 100 mg PO TID [facility] Stop: 05/25/17 13:59 Last Admin: 03/27/17 08:17 Dose: 100 mg Cefepime HCl 1 gm/ Dextrose 50 mls @ 100 mls/hr IV Q12H [facility] Stop: 05/21/17 23:29 Last Admin: 03/27/17 12:09 Dose: 100 mls/hr Sodium Chloride (Nacl 0.9%) 1,000 mls @ 70 mls/hr IV .[id number] [facility] Stop: 05/21/17 23:29 Last Admin: 03/27/17 12:06 Dose: 70 mls/hr Ipratropium Ferron (Atrovent Neb 0.5mg/2.5ml) 0.5 mg IH Q2HRT PRN PRN Reason: Shortness of Breath or Wheeze Stop: 05/21/17 23:26 Last Admin: 03/26/17 06:43 Dose: 0.5 mg Losartan Potassium (Cozaar) 50 mg PO DAILY [facility] Stop: 05/26/17 08:59 Last Admin: 03/27/17 08:16 Dose: 50 mg Magnesium Hydroxide (Milk Of Magnesia) 30 ml PO DAILY PRN PRN Reason: Constipation Stop: 05/21/17 23:24 Methylprednisolone Sodium Succinate (Solu-Medrol) 60 mg IVP Q12HR [facility] Stop: 05/23/17 20:59 Last Admin: 03/27/17 08:16 Dose: 60 mg Ondansetron HCl (Zofran) 4 mg IV Q8H PRN PRN Reason: Nausea / Vomiting Stop: 05/21/17 23:26 Risperidone (Risperdal) 1 mg PO HS [facility] PRN Reason: Protocol Stop: 05/22/17 20:59 Last Admin: 03/27/17 01:50 Dose: Not Given Vitamin D (Vitamin D) 800 iu PO DAILY [facility] Stop: 05/22/17 08:59 Last Admin: 03/27/17 08:17 Dose: 800 iu General: weak, alert HEENT: NC/AT, PERRLA Neck: Supple Lungs: wheezing Cardiovascular: RRR, Normal S1, Normal S2, without murmur Abdomen: soft, non-tender, non-distended, positive bowel sound Extremities: excoriation Neurological: alert, unable to follow command - Procedures Procedures: Procedures Procedure Code Date ASPIR CURETT UTERUS NEC 69.59 10/29/11 BIOPSY OF CERVIX 19500 09/05/94 CERVICAL LES DESTRUC NEC 67.39 09/05/94 CONTINUOUS INVASIVE MECHANICAL VENTILATION <96 CONSEC HRS 96.71 09/01/14 D & C NEC 69.09 09/05/94 DILATION AND CURETTAGE 93934 10/29/11 EMERGENCY DEPT VISIT 17149 05/28/11 GENITAL SURGERY PROCEDURE 72653 09/05/94 HYMENORRHAPHY 70.76 09/05/94 HYMENOTOMY 70.11 09/05/94 INCISION OF HYMEN 76993 09/05/94 LAPAROSCOPIC CHOLECYSTECTOMY 51.23 11/29/06 LAPAROSCOPIC CHOLECYSTECTOMY 27847 11/29/06 OTHER OPEN UMBILICAL HERNIORRHAPHY 53.49 11/29/06 RPR UMBIL JIHAN BLOCK > 5 YR 37911 11/29/06 Internal Medicine Assmt/Plan - Assessment Assessment: acute copd exacerbation possible pna hyponatremia protein calorie malnutrition htn dm-2 asthma seizures dementia gastritis umbilical hernia anemia schizophrenia - Plan Plan: LTAC EVAL continue with inhalation tx follow up cxr in am empiric ivabx follow up labs in am continue current orders
[2017-03-27] MEDS: Ipratropium Neb 0.5 mg/2.5 mL UD IH PRN (19:09)
== END 2017-03-27 19:50 | DRG 871 ==
LOC: ER 20:33 → TELE 23:12
PROVIDERS: ADMIT Internal Medicine; ATTEND Internal Medicine
DX: A41.9 Sepsis, unspecified organism (principal); J18.9 Pneumonia, unspecified organism; E46 Unspecified protein-calorie malnutrition; E11.9 Type 2 diabetes mellitus without complications; D64.9 Anemia, unspecified; J44.0 Chronic obstructive pulmonary disease with (acute) lower respiratory infection; E87.1 Hypo-osmolality and hyponatremia; F20.9 Schizophrenia, unspecified; R56.9 Unspecified convulsions; J44.1 Chronic obstructive pulmonary disease with (acute) exacerbation; F03.90 Unspecified dementia, unspecified severity, without behavioral disturbance, psychotic disturbance, mood disturbance, and anxiety; I10 Essential (primary) hypertension; K42.9 Umbilical hernia without obstruction or gangrene; K29.70 Gastritis, unspecified, without bleeding; Z86.73 Personal history of transient ischemic attack (TIA), and cerebral infarction without residual deficits; Z68.26 Body mass index [BMI] 26.0-26.9, adult
CPT/HCPCS: 36415-UA; 71010-TC; 80048-TC; 80053-TC; 83036-90; 83605; 83735-TC; 83880-TC; 84484-TC; 85025-TC; 87070; 90779; 93005; 94640; 94760; J0692; J2930; J7030; J7613; Z7610

== ENCOUNTER 2017-05-01 09:58 | Inpatient (IN) | payer MEDICARE, MEDICAID ==
--- NOTE | 2017-05-01 10:05 | ED Physician Chart ---
ED Chief Complaint/HPI - Patient Information Date Seen:: 05/01/17 Time Seen:: 10:03 Chief Complaint:: Fever History of Present Illness:: 76 yo female was brought from [facility] to ER for evaluation of fever 101.7 F for 6 hours. She was given Tylenol and temperature went down to 98.4 F. She was noticed to be lethargic. Denied any cough. Patient was wearing a diaper. Allergies:: Allergies Allergy/AdvReac Type Severity Reaction Status Date / Time No Known Allergies Allergy Verified 03/22/17 21:14 ED Review of Systems - Review of Systems General/Constitutional: No fever, Weakness Skin: No skin lesions Head: No headache Eyes: Other (blurry vision) ENT: No nasal drainage Neck: No neck pain Cardio Vascular: No chest pain Pulmonary: No SOB Musculoskeletal: No muscle pain ED Past Medical History - Past Medical History Past Medical History: HTN, DM, Asthma/COPD, CVA/TIA, Seizures, Arthritis, Other (Hydocephalus with shunt, gastritis, colitis, umbilical hernia, anemia) Social History: Non Smoker, No Alcohol, No Drug Use Surgical History: other (Catarat with pseuophakia) Psychiatricy History: Schizophrenia, Other (Psychosis) Family Medical History - Family Member Mother History Unknown: Yes ED Physical Exam - Physical Examination Other Gen/Cons comments:: Sleepy but arousable Head: Atraumatic Other Eyes comments:: Left eye pseudophakia, pupil dilated with abnormal shape Skin: No ecchymosis ENMT: Nasal exam nl Neck: No nuchal rigidity Other Respiratory comments:: Mild wheezing with diminished breathing sound Cardio Vascular: RRR, No murmur, gallop, rubs, NL S1 S2 GI: No tenderness/rebounding/guarding, Nondistended Extremities: No edema Other Neuro/Psych comments:: oriented to self only, partially follow commands ED Assessment - Assessment General Assessment: UTI Leukocytosis Assessment/Comments:: CBC, CMP CXR, EKG UA NS 1L IV bolus Rocephin 1g IV Solu-Medrol 125mg IV DuoNeb Metoprolol 5mg IV Insulin Admit to med surg ED Septic Shock - . Is Septic Shock (SBP<90, OR Lactate>4 mmol\L) present?: No ED Reassessment (Disposition) - Reassessment Reassessment Condition:: Improved - Patient Disposition Discharge/Transfer:: Acute Care w/in this hosp Admitting Medical Physician:: Wm Steward ED Discharge Plan - Patient Disposition Admit/Discharge/Transfer: Acute Care w/in this hosp Condition at Disposition: Stable
[2017-05-01] MEDS ORDERED: INSULIN HUMAN REGULAR 100 UNITS/ML UNIT SUBQ ONE (10:17)
--- NOTE | 2017-05-01 10:37 | Diagnostic Imaging Report ---
Portable chest x-ray Time: 10:30 History: Wheezing The prior exam of 03/25/2017 Allowing for portable technique the heart size is normal. No focal pulmonary parenchymal processes. No hilar or mediastinal abnormalities. Impression: No acute abnormalities.
[2017-05-01] MEDS ORDERED: INSULIN HUMAN REGULAR 100 UNITS/ML UNIT ONE (10:47)
[2017-05-01 10:51] LABS: HEMATOCRIT 29.3 % (41.0-60); HEMOGLOBIN 9.9 gm/dL (12-16); MEAN CELL VOLUME 85.2 fl (81-100); MEAN CORPUSCULAR HEMOGLOBIN 28.8 pg (27.0-31.0); MEAN CORPUSCULAR HGB CONC 33.8 pg (28.0-36.0); MEAN PLATELET VOLUME 6.4 fl; PLATELET COUNT 367 Th/cmm (150-400); RED BLOOD COUNT 3.44 Mil/cmm (3.80-5.20); RED CELL DISTRIBUTION WIDTH 13.5 % (11.5-20.0)
[2017-05-01 10:53] LABS: WHITE BLOOD COUNT 16.8 Th/cmm (4.8-10.8)
[2017-05-01 10:53] LABS: URINE MICROSCOPIC INDICATED? YES; URINE SOURCE CATH
[2017-05-01 10:56] LABS: URINE BILIRUBIN NEGATIVE (NEGATIVE); URINE BLOOD TRACE (NEGATIVE); URINE GLUCOSE (UA) 250 mg/dL (NEGATIVE); URINE KETONE NEGATIVE (NEGATIVE); URINE LEUKOCYTE ESTERASE LARGE (NEGATIVE); URINE NITRATE POSITIVE (NEGATIVE); URINE PH 5.5 (4.6 - 8.0); URINE PROTEIN 30 mg/dL (NEGATIVE); URINE UROBILINOGEN 0.2 E.U./dL (0.2 - 1.0)
[2017-05-01 11:01] LABS: ALBUMIN 3.1 gm/dL (3.7-5.3); ALKALINE PHOSPHATASE 98 U/L (34-104); BILIRUBIN,TOTAL 0.4 mg/dL (0.3-1.0); BUN - UREA NITROGEN 26 mg/dL (7-25); CALCIUM SERUM 9.8 mg/dL (8.6-10.3); CREATININE - SERUM 0.9 mg/dL (0.6-1.2); GLUCOSE 268 mg/dL (70-105); SGOT 20 U/L (13-39); SGPT/ALT 15 U/L (7-52); TOTAL PROTEIN,SERUM 6.1 gm/dL (6.0-8.3)
[2017-05-01 11:03] LABS: URINE CLARITY CLOUDY (CLEAR); URINE COLOR YELLOW
[2017-05-01 11:08] LABS: URINE BACTERIA MANY /hpf (NONE SEEN); URINE EPITHELIAL CELLS FEW /lpf (FEW); URINE WBC >100 /hpf (0-5)
[2017-05-01 11:09] LABS: TOTAL CELLS COUNTED 100
[2017-05-01 11:11] LABS: BAND NEUTROPHILE 19 % (0-10); LYMPHOCYTE 9 % (20-50); MONOCYTE 5 % (2-10); NEUTROPHILS 67 % (40-80)
[2017-05-01 11:19] LABS: CHLORIDE 90 mEq/L (98-107)
[2017-05-01] MEDS ORDERED: Sodium Chloride 0.9% 1,000 ML IV ONE (11:19)
[2017-05-01] MEDS ORDERED: cefTRIAXone 1 GM in Sodium Chloride 0.9% 50 ML IV ONE (11:20)
--- NOTE | 2017-05-01 13:41 | History & Physical ---
ADMIT DATE: 05/01/2017 CHIEF COMPLAINT: Fever and congestion. HISTORY OF PRESENT ILLNESS: This is a 76-year-old female who is well known to me. The patient has a 1-day history of fever and congestion. The patient was recently discharged from this hospital last month for the same reasons. For further management the patient will be admitted. PAST MEDICAL HISTORY: Hypertension, diabetes, asthma, COPD, history of CVA, TIA, seizure, dementia, gastritis, colitis, umbilical hernia, anemia, hydrocephalus. SOCIAL HISTORY: The patient is a snf resident, requiring 24-hour nursing care. REVIEW OF SYSTEMS: Unable to obtain due to patient's mental status. PHYSICAL EXAMINATION: GENERAL: This is an elderly female, awake with confusion, no apparent distress. VITAL SIGNS: Temperature 97.7, heart rate 87, blood pressure 114/43, respirations 17, O2 98%. HEENT: Head; normocephalic, atraumatic. NECK: Supple. No mass. LUNGS: Few rhonchi heard. ABDOMEN: Soft, nontender, nondistended. LABORATORY DATA: WBC 16.8, H and H 10.9 and 29.3, platelet of 367. Sodium pending, potassium pending, chloride 90, BUN 26, creatinine 0.9, whole lactic acid of 3.02, BNP of 209. Albumin at 3.1. The patient had a urinalysis done, positive for UTI. DIAGNOSTICS: The patient had a chest x-ray done. Impression is no acute abnormalities. ASSESSMENT: Lactic acidosis, acute urinary tract infection, acute febrile illness, leukocytosis, acute renal insufficiency, mild protein calorie malnutrition. PLAN: The patient to be admitted to the med-surg unit. We will keep the patient on empiric IV antibiotics of Rocephin and IV fluids for hydration, bronchodilators, supplemental oxygen. We will continue to follow this patient. JOB# [id number]
[2017-05-01] MEDS ORDERED: Albuterol/Ipratropium Neb 3 ML AERS HHN ONE ×2 (14:08→14:09)
[2017-05-01] MEDS ORDERED: Ipratropium Neb 0.5 mg/2.5 mL UD HHN STA (14:10)
[2017-05-01] MEDS ORDERED: Ipratropium Neb 0.5 mg/2.5 mL UD HHN ONE (14:11)
[2017-05-01] MEDS ORDERED: Metoprolol tartrate 1 mg/ml 5mL Amp IV ONE ×2 (14:49→14:52)
[2017-05-01] MEDS ORDERED: Non-Formulary Item 1 EA (Oxybenzone/Padimate O [Sunscreen Spf8 Lotion] 120 ML) TP PRN (16:24)
[2017-05-01] MEDS ORDERED: D5-0.9%NS 1,000 ML IV SCH (16:24)
[2017-05-01] MEDS ORDERED: Non-Formulary Item 1 EA (Barrier Cream 1 UNIT) TP PRN (16:24)
[2017-05-01] MEDS ORDERED: Magnesium Hydroxide (MOM) 30 mL UDC PO PRN (16:24)
[2017-05-01] MEDS ORDERED: guaiFENesin 200 MG/10 ML UDC PO PRN (16:24)
[2017-05-01] MEDS ORDERED: Fleet Enema 135 mL RC PRN (16:24)
[2017-05-01] MEDS: D5-0.45NS 1,000 ML IV SCH (16:50)
[2017-05-01] MEDS ORDERED: Pneumococcal Vaccine 0.5 mL Vial IM ONE (17:29)
[2017-05-01 17:33] LABS: ANION GAP 12.7 (7.0-16.0)
[2017-05-01 17:35] LABS: POTASSIUM SERUM 3.7 mEq/L (3.5-5.1)
[2017-05-01 17:36] LABS: SODIUM SERUM 129 mEq/L (136-145)
[2017-05-01] MEDS: Ferrous Sulfate 325 MG TAB PO SCH (18:39)
[2017-05-01] MEDS: Fish Oil 1,000 MG SGL PO SCH (18:39)
[2017-05-01] MEDS ORDERED: Albuterol Nebulizer 2.5mg/3mL HHN SCH (19:00)
[2017-05-01] MEDS: Albuterol Nebulizer 2.5mg/3mL HHN SCH (19:14)
[2017-05-01] MEDS: Ipratropium Neb 0.5 mg/2.5 mL UD HHN SCH (19:14)
[2017-05-02 06:44] LABS: ANION GAP 1.7 (7.0-16.0); BUN - UREA NITROGEN 22 mg/dL (7-25); CALCIUM SERUM 9.5 mg/dL (8.6-10.3); CARBON DIOXIDE 29.4 mEq/L (21.0-31.0); CREATININE - SERUM 0.7 mg/dL (0.6-1.2); GLUCOSE 259 mg/dL (70-105); POTASSIUM SERUM 4.1 mEq/L (3.5-5.1); SODIUM SERUM 130 mEq/L (136-145)
[2017-05-02 06:47] LABS: EOSINOPHILE ABSOLUTE 0.1 Th/cmm (0.1-0.4); HEMATOCRIT 27.9 % (41.0-60); HEMOGLOBIN 9.2 gm/dL (12-16); LYMPHOCYTE ABSOLUTE 1.1 Th/cmm (1.5-3.0); MEAN CORPUSCULAR HEMOGLOBIN 28.4 pg (27.0-31.0); MEAN PLATELET VOLUME 6.7 fl; MONOCYTE ABSOLUTE 0.8 Th/cmm (0.3-1.0); NEUTROPHILE ABSOLUTE 18.3 Th/cmm (1.8-8.0); PLATELET COUNT 324 Th/cmm (150-400); RED BLOOD COUNT 3.24 Mil/cmm (3.80-5.20); RED CELL DISTRIBUTION WIDTH 13.4 % (11.5-20.0)
[2017-05-02] MEDS: Albuterol Nebulizer 2.5mg/3mL HHN SCH ×6 (06:59→19:21)
[2017-05-02] MEDS: Ipratropium Neb 0.5 mg/2.5 mL UD HHN SCH ×4 (06:59→19:12)
[2017-05-02 07:02] LABS: WHITE BLOOD COUNT 20.3 Th/cmm (4.8-10.8)
[2017-05-02 08:48] LABS: BAND NEUTROPHILE 27 % (0-10); LYMPHOCYTE 6 % (20-50); METAMYELOCYTE 2 % (0-0); MONOCYTE 7 % (2-10); NEUTROPHILS 58 % (40-80); TOTAL CELLS COUNTED 100
[2017-05-02 08:49] LABS: PLATELET ESTIMATE ADEQUATE (NORMAL)
[2017-05-02] MEDS: Ferrous Sulfate 325 MG TAB PO SCH ×2 (09:18→16:55)
[2017-05-02] MEDS: Fish Oil 1,000 MG SGL PO SCH ×2 (09:18→16:56)
[2017-05-02] MEDS: Multivitamin w/ Minerals Tab PO SCH (09:19)
[2017-05-02] MEDS: D5-0.45NS 1,000 ML IV SCH (11:13)
--- NOTE | 2017-05-02 14:12 | Internal Medicine Prog Note ---
Internal Medicine Subjective - Subjective Service Date: 05/02/17 Patient seen and examined:: with staff Patient is:: awake, verbal Per staff patient has:: tolerating meds Internal Medicine Objective - Results Result Diagrams: 05/02/17 05:59 05/02/17 05:59 Recent Labs: Laboratory Last Values WBC 20.3 Th/cmm (4.8-10.8) H* 05/02/17 05:59 RBC 3.24 Mil/cmm (3.80-5.20) L 05/02/17 05:59 Hgb 9.2 gm/dL (12-16) L 05/02/17 05:59 Hct 27.9 % (41.0-60) L 05/02/17 05:59 MCV 86.0 fl (81-100) 05/02/17 05:59 MCH 28.4 pg (27.0-31.0) 05/02/17 05:59 MCHC Differential 33.0 pg (28.0-36.0) 05/02/17 05:59 RDW 13.4 % (11.5-20.0) 05/02/17 05:59 Plt Count 324 Th/cmm (150-400) 05/02/17 05:59 MPV 6.7 fl 05/02/17 05:59 Band Neutrophils % 27 % (0-10) H 05/02/17 05:59 Neutrophils (Manual) 58 % (40-80) 05/02/17 05:59 Lymphocytes 6 % (20-50) L 05/02/17 05:59 Monocytes 7 % (2-10) 05/02/17 05:59 Metamyelocytes 2 % (0-0) H 05/02/17 05:59 Platelet Estimate ADEQUATE (NORMAL) 05/02/17 05:59 Sodium 130 mEq/L (136-145) L 05/02/17 05:59 Potassium 4.1 mEq/L (3.5-5.1) 05/02/17 05:59 Chloride 90 mEq/L (98-107) L 05/01/17 10:22 Carbon Dioxide 29.4 mEq/L (21.0-31.0) 05/02/17 05:59 Anion Gap 1.7 (7.0-16.0) L 05/02/17 05:59 BUN 22 mg/dL (7-25) 05/02/17 05:59 Creatinine 0.7 mg/dL (0.6-1.2) 05/02/17 05:59 Est GFR ( Amer) TNP 05/02/17 05:59 Est GFR (Non-Af Amer) TNP 05/02/17 05:59 BUN/Creatinine Ratio 31.4 05/02/17 05:59 Glucose 259 mg/dL (70-105) H 05/02/17 05:59 POC Glucose 278 MG/DL (70 - 105) H 05/01/17 10:12 Hemoglobin A1c % 7.0 % (4.0-6.0) H 05/01/17 10:45 Whole Bld Lactic Acid 3.02 mmol/L (0.60-1.99) H* 05/01/17 Unknown Calcium 9.5 mg/dL (8.6-10.3) 05/02/17 05:59 Total Bilirubin 0.4 mg/dL (0.3-1.0) 05/01/17 10:22 AST 20 U/L (13-39) 05/01/17 10:22 ALT 15 U/L (7-52) 05/01/17 10:22 Alkaline Phosphatase 98 U/L (34-104) 05/01/17 10:22 Troponin I 0.03 ng/mL (0.01-0.05) 05/01/17 14:44 B-Natriuretic Peptide 209.0 pg/mL (5.0-100.0) H 05/01/17 10:22 Total Protein 6.1 gm/dL (6.0-8.3) 05/01/17 10:22 Albumin 3.1 gm/dL (3.7-5.3) L 05/01/17 10:22 Globulin 3.0 gm/dL 05/01/17 10:22 Albumin/Globulin Ratio 1.0 (1.0-1.8) 05/01/17 10:22 TSH 1.72 uIU/ml (0.34-5.60) 05/01/17 10:22 Urine Source CATH 05/01/17 10:45 Urine Color YELLOW 05/01/17 10:45 Urine Clarity CLOUDY (CLEAR) H 05/01/17 10:45 Urine pH 5.5 (4.6 - 8.0) 05/01/17 10:45 Ur Specific [place] 1.020 (1.005-1.030) 05/01/17 10:45 Urine Protein 30 mg/dL (NEGATIVE) H 05/01/17 10:45 Urine Glucose (UA) 250 mg/dL (NEGATIVE) H 05/01/17 10:45 Urine Ketones NEGATIVE mg/dL (NEGATIVE) 05/01/17 10:45 Urine Blood TRACE (NEGATIVE) 05/01/17 10:45 Urine Nitrate POSITIVE (NEGATIVE) H 05/01/17 10:45 Urine Bilirubin NEGATIVE (NEGATIVE) 05/01/17 10:45 Urine Urobilinogen 0.2 E.U./dL (0.2 - 1.0) 05/01/17 10:45 Ur Leukocyte Esterase LARGE (NEGATIVE) H 05/01/17 10:45 Urine RBC 2-5 /hpf (0-5) 05/01/17 10:45 Urine WBC >100 /hpf (0-5) H 05/01/17 10:45 Ur Epithelial Cells FEW /lpf (FEW) 05/01/17 10:45 Urine Bacteria MANY /hpf (NONE SEEN) H 05/01/17 10:45 - Physical Exam Vitals and I&O: Vital Signs Temp 97.6 F 05/02/17 11:56 Pulse 101 05/02/17 11:56 Resp 20 05/02/17 11:56 BP 113/90 05/02/17 11:56 Pulse Ox 96 05/02/17 11:56 Intake & Output 05/01/17 05/02/17 05/02/17 18:59 06:59 18:59 Intake Total 999 1320 Balance 999 1320 Weight (lbs) 120 lb 115 lb 6.4 oz Intake: Intake, IV Amount 999 1000 D5-0.45NS 1,000 ml @ 100 1000 mls/hr IV .Q10H [facility] Rx#: [id number] Oral 320 Other: # Voids 3 # Bowel Movements 0 Active Medications: Current Medications Acetaminophen (Tylenol) 650 mg PO Q4HR PRN PRN Reason: Pain Or Fever above 101 Stop: 06/30/17 16:23 Albuterol Sulfate (Albuterol 2.5mg/3ml Neb Ud) 2.5 mg HHN QIDRT ROSS Stop: 04/17/18 18:59 Last Admin: 05/02/17 10:45 Dose: 2.5 mg Ascorbic Acid (Vitamin C) 500 mg PO BID ROSS Stop: 06/30/17 16:59 Last Admin: 05/02/17 09:17 Dose: 500 mg Bisacodyl (Dulcolax 10 Mg Supp) 10 mg RC DAILY PRN PRN Reason: Constipation Stop: 06/30/17 16:23 Calcium Acetate (Phoslo) 1,334 mg PO TID ROSS Stop: 06/30/17 16:23 Last Admin: 05/02/17 09:18 Dose: 1,334 mg Cyanocobalamin (Vitamin B12) 1,000 mcg PO DAILY ROSS Stop: 07/01/17 08:59 Last Admin: 05/02/17 09:18 Dose: 1,000 mcg Famotidine (Pepcid) 20 mg PO BID ROSS Stop: 06/30/17 16:59 Last Admin: 05/02/17 09:18 Dose: 20 mg Ferrous Sulfate (Iron) 325 mg PO BID ROSS Stop: 06/30/17 16:59 Last Admin: 05/02/17 09:18 Dose: 325 mg Fish Oil ([place] 3) 1,000 mg PO BID ROSS Stop: 06/30/17 16:59 Last Admin: 05/02/17 09:18 Dose: 1,000 mg Guaifenesin (Robitussin) 100 mg PO Q4H PRN PRN Reason: Cough or Congestion Stop: 06/30/17 16:23 Hydralazine HCl (Apresoline) 100 mg PO BID ROSS Stop: 06/30/17 16:59 Last Admin: 05/02/17 09:18 Dose: 100 mg Dextrose/Sodium Chloride (D5-0.45ns) 1,000 mls @ 100 mls/hr IV .Q10H ROSS Stop: 06/30/17 16:23 Last Admin: 05/02/17 11:13 Dose: 100 mls/hr Ipratropium [place] (Atrovent Neb 0.5mg/2.5ml) 0.5 mg HHN QIDRT ROSS Stop: 06/30/17 18:59 Last Admin: 05/02/17 10:45 Dose: 0.5 mg Lisinopril (Zestril) 20 mg PO BID ROSS Stop: 06/30/17 16:59 Last Admin: 05/02/17 09:19 Dose: 20 mg Magnesium Hydroxide (Milk Of Magnesia) 30 ml PO DAILY PRN PRN Reason: Constipation Stop: 06/30/17 16:23 Metformin HCl (Glucophage) 500 mg PO DAILY [facility] Stop: 07/01/17 08:59 Last Admin: 05/02/17 09:19 Dose: 500 mg Ondansetron HCl (Zofran) 4 mg IV Q8H PRN PRN Reason: Nausea / Vomiting Stop: 06/30/17 16:23 Risperidone (Risperdal) 1 mg PO HS ROSS PRN Reason: Protocol Stop: 06/30/17 20:59 Sodium Phosphate (Fleet Enema) 135 ml RC Q72H PRN PRN Reason: IF DULCOLAX INEFFECTIVE Stop: 06/30/17 16:23 Vitamin D (Vitamin D) 800 iu PO DAILY [facility] Stop: 07/01/17 08:59 Last Admin: 05/02/17 09:19 Dose: 800 iu General: weak, alert HEENT: NC/AT, PERRLA Neck: Supple Lungs: ronchi Cardiovascular: RRR, Normal S1, Normal S2, without murmur Abdomen: soft, non-tender, non-distended, positive bowel sound Neurological: alert - Procedures Procedures: Procedures Procedure Code Date ASPIR CURETT UTERUS NEC 69.59 10/29/11 BIOPSY OF CERVIX 80717 09/05/94 CERVICAL LES DESTRUC NEC 67.39 09/05/94 CONTINUOUS INVASIVE MECHANICAL VENTILATION <96 CONSEC HRS 96.71 09/01/14 D & C NEC 69.09 09/05/94 DILATION AND CURETTAGE 15323 10/29/11 EMERGENCY DEPT VISIT 48091 05/28/11 GENITAL SURGERY PROCEDURE 90985 09/05/94 HYMENORRHAPHY 70.76 09/05/94 HYMENOTOMY 70.11 09/05/94 INCISION OF HYMEN 05973 09/05/94 LAPAROSCOPIC CHOLECYSTECTOMY 51.23 11/29/06 LAPAROSCOPIC CHOLECYSTECTOMY 93066 11/29/06 OTHER OPEN UMBILICAL HERNIORRHAPHY 53.49 11/29/06 RPR UMBIL JIHAN BLOCK > 5 YR 75580 11/29/06 Internal Medicine Assmt/Plan - Assessment Assessment: lactic acidosis urosepsis acute uti acute febrile illness acute renal insufficiency mild protein calorie malnutrition - Plan Plan: continue iv rocephin cbc/bmp in am monitor glucose continue current plan of care
[2017-05-02] MEDS: cefTRIAXone 1 GM in Sodium Chloride 0.9% 50 ML IV SCH (16:55)
[2017-05-02] MEDS: INSULIN ASPART SLIDING SCALE 100 UNITS/ML UNIT SUBQ SCH ×2 (18:22→21:23)
[2017-05-03 04:57] LABS: HEMATOCRIT 26.9 % (41.0-60); MEAN CELL VOLUME 85.4 fl (81-100); MEAN CORPUSCULAR HEMOGLOBIN 28.5 pg (27.0-31.0); MEAN CORPUSCULAR HGB CONC 33.3 pg (28.0-36.0); MEAN PLATELET VOLUME 6.6 fl; PLATELET COUNT 305 Th/cmm (150-400); RED BLOOD COUNT 3.14 Mil/cmm (3.80-5.20); RED CELL DISTRIBUTION WIDTH 13.4 % (11.5-20.0)
[2017-05-03 05:16] LABS: ANION GAP 6.5 (7.0-16.0); BUN - UREA NITROGEN 17 mg/dL (7-25); CALCIUM SERUM 9.2 mg/dL (8.6-10.3); CHLORIDE 94 mEq/L (98-107); CREATININE - SERUM 0.6 mg/dL (0.6-1.2); GLUCOSE 188 mg/dL (70-105); POTASSIUM SERUM 3.5 mEq/L (3.5-5.1); SODIUM SERUM 127 mEq/L (136-145)
[2017-05-03 06:18] LABS: WHITE BLOOD COUNT 17.1 Th/cmm (4.8-10.8)
[2017-05-03 07:14] LABS: BAND NEUTROPHILE 22 % (0-10); LYMPHOCYTE 9 % (20-50); MONOCYTE 5 % (2-10); NEUTROPHILS 64 % (40-80); PLATELET ESTIMATE ADEQUATE (NORMAL); TOTAL CELLS COUNTED 100
[2017-05-03] MEDS: Albuterol Nebulizer 2.5mg/3mL HHN SCH ×4 (07:15→19:40)
[2017-05-03] MEDS: Ipratropium Neb 0.5 mg/2.5 mL UD HHN SCH ×4 (07:15→19:40)
[2017-05-03] MEDS: INSULIN ASPART SLIDING SCALE 100 UNITS/ML UNIT SUBQ SCH ×4 (08:05→20:38)
[2017-05-03] MEDS: Multivitamin w/ Minerals Tab PO SCH (08:08)
[2017-05-03] MEDS: Ferrous Sulfate 325 MG TAB PO SCH ×2 (08:08→17:01)
[2017-05-03] MEDS: Fish Oil 1,000 MG SGL PO SCH ×2 (08:08→17:02)
--- NOTE | 2017-05-03 10:34 | Diagnostic Imaging Report ---
Exam: Chest portable HISTORY: Pneumonia. Findings: Portable examination of the chest at 1001 hours reviewed compared to prior study 05/01/2017 demonstrates no active pulmonic infiltrates or effusions. Mediastinal structures midline the aortic arch calcified. Bony thorax is intact. IMPRESSION no acute disease.
[2017-05-03] MEDS: cefTRIAXone 1 GM in Sodium Chloride 0.9% 50 ML IV SCH (13:19)
--- NOTE | 2017-05-03 13:48 | Internal Medicine Prog Note ---
Internal Medicine Subjective - Subjective Service Date: 05/03/17 Patient is:: awake, verbal Per staff patient has:: tolerating meds Internal Medicine Objective - Results Result Diagrams: 05/03/17 04:35 05/03/17 04:35 Recent Labs: Laboratory Last Values WBC 17.1 Th/cmm (4.8-10.8) H 05/03/17 04:35 RBC 3.14 Mil/cmm (3.80-5.20) L 05/03/17 04:35 Hgb 9.0 gm/dL (12-16) L 05/03/17 04:35 Hct 26.9 % (41.0-60) L 05/03/17 04:35 MCV 85.4 fl (81-100) 05/03/17 04:35 MCH 28.5 pg (27.0-31.0) 05/03/17 04:35 MCHC Differential 33.3 pg (28.0-36.0) 05/03/17 04:35 RDW 13.4 % (11.5-20.0) 05/03/17 04:35 Plt Count 305 Th/cmm (150-400) 05/03/17 04:35 MPV 6.6 fl 05/03/17 04:35 Band Neutrophils % 22 % (0-10) H 05/03/17 04:35 Neutrophils (Manual) 64 % (40-80) 05/03/17 04:35 Lymphocytes 9 % (20-50) L 05/03/17 04:35 Monocytes 5 % (2-10) 05/03/17 04:35 Metamyelocytes 2 % (0-0) H 05/02/17 05:59 Platelet Estimate ADEQUATE (NORMAL) 05/03/17 04:35 Sodium 127 mEq/L (136-145) L 05/03/17 04:35 Potassium 3.5 mEq/L (3.5-5.1) 05/03/17 04:35 Chloride 94 mEq/L (98-107) L 05/03/17 04:35 Carbon Dioxide 30.0 mEq/L (21.0-31.0) 05/03/17 04:35 Anion Gap 6.5 (7.0-16.0) L 05/03/17 04:35 BUN 17 mg/dL (7-25) 05/03/17 04:35 Creatinine 0.6 mg/dL (0.6-1.2) 05/03/17 04:35 Est GFR ( Amer) TNP 05/03/17 04:35 Est GFR (Non-Af Amer) TNP 05/03/17 04:35 BUN/Creatinine Ratio 28.3 05/03/17 04:35 Glucose 188 mg/dL (70-105) H 05/03/17 04:35 POC Glucose 164 MG/DL (70 - 105) H 05/03/17 06:59 Hemoglobin A1c % 7.0 % (4.0-6.0) H 05/01/17 10:45 Whole Bld Lactic Acid 3.02 mmol/L (0.60-1.99) H* 05/01/17 Unknown Calcium 9.2 mg/dL (8.6-10.3) 05/03/17 04:35 Total Bilirubin 0.4 mg/dL (0.3-1.0) 05/01/17 10:22 AST 20 U/L (13-39) 05/01/17 10:22 ALT 15 U/L (7-52) 05/01/17 10:22 Alkaline Phosphatase 98 U/L (34-104) 05/01/17 10:22 Troponin I 0.03 ng/mL (0.01-0.05) 05/01/17 14:44 B-Natriuretic Peptide 209.0 pg/mL (5.0-100.0) H 05/01/17 10:22 Total Protein 6.1 gm/dL (6.0-8.3) 05/01/17 10:22 Albumin 3.1 gm/dL (3.7-5.3) L 05/01/17 10:22 Globulin 3.0 gm/dL 05/01/17 10:22 Albumin/Globulin Ratio 1.0 (1.0-1.8) 05/01/17 10:22 TSH 1.72 uIU/ml (0.34-5.60) 05/01/17 10:22 Urine Source CATH 05/01/17 10:45 Urine Color YELLOW 05/01/17 10:45 Urine Clarity CLOUDY (CLEAR) H 05/01/17 10:45 Urine pH 5.5 (4.6 - 8.0) 05/01/17 10:45 Ur Specific [place] 1.020 (1.005-1.030) 05/01/17 10:45 Urine Protein 30 mg/dL (NEGATIVE) H 05/01/17 10:45 Urine Glucose (UA) 250 mg/dL (NEGATIVE) H 05/01/17 10:45 Urine Ketones NEGATIVE mg/dL (NEGATIVE) 05/01/17 10:45 Urine Blood TRACE (NEGATIVE) 05/01/17 10:45 Urine Nitrate POSITIVE (NEGATIVE) H 05/01/17 10:45 Urine Bilirubin NEGATIVE (NEGATIVE) 05/01/17 10:45 Urine Urobilinogen 0.2 E.U./dL (0.2 - 1.0) 05/01/17 10:45 Ur Leukocyte Esterase LARGE (NEGATIVE) H 05/01/17 10:45 Urine RBC 2-5 /hpf (0-5) 05/01/17 10:45 Urine WBC >100 /hpf (0-5) H 05/01/17 10:45 Ur Epithelial Cells FEW /lpf (FEW) 05/01/17 10:45 Urine Bacteria MANY /hpf (NONE SEEN) H 05/01/17 10:45 - Physical Exam Vitals and I&O: Vital Signs Temp 100.8 F 05/03/17 12:00 Pulse 116 05/03/17 12:00 Resp 20 05/03/17 12:00 BP 116/62 05/03/17 12:00 Pulse Ox 95 05/03/17 12:00 Intake & Output 05/02/17 05/03/17 05/03/17 18:59 06:59 18:59 Intake Total 50 550 Balance 50 550 Weight (lbs) 117 lb 11.2 oz Intake: Intake, IV Amount 50 [id number] 1 gm In 50 Sodium Chloride 0.9% 50 ml @ 100 mls/hr IV Q24HR [facility] Rx#:[id number] Oral 550 Other: # Voids 3 # Bowel Movements 0 Active Medications: Current Medications Acetaminophen (Tylenol) 650 mg PO Q4HR PRN PRN Reason: Pain Or Fever above 101 Stop: 06/30/17 16:23 Last Admin: 05/03/17 13:20 Dose: 650 mg Albuterol Sulfate (Albuterol 2.5mg/3ml Neb Ud) 2.5 mg HHN QIDRT [facility] Stop: 06/30/17 18:59 Last Admin: 05/03/17 10:48 Dose: 2.5 mg Ascorbic Acid (Vitamin C) 500 mg PO BID ROSS Stop: 06/30/17 16:59 Last Admin: 05/03/17 08:07 Dose: 500 mg Bisacodyl (Dulcolax 10 Mg Supp) 10 mg RC DAILY PRN PRN Reason: Constipation Stop: 06/30/17 16:23 Calcium Acetate (Phoslo) 1,334 mg PO TID ROSS Stop: 06/30/17 16:23 Last Admin: 05/03/17 13:19 Dose: 1,334 mg Cyanocobalamin (Vitamin B12) 1,000 mcg PO DAILY [facility]S Stop: 07/01/17 08:59 Last Admin: 05/03/17 08:08 Dose: 1,000 mcg Famotidine (Pepcid) 20 mg PO BID ROSS Stop: 06/30/17 16:59 Last Admin: 05/03/17 08:08 Dose: 20 mg Ferrous Sulfate (Iron) 325 mg PO BID ROSS Stop: 06/30/17 16:59 Last Admin: 05/03/17 08:08 Dose: 325 mg Fish Oil ([place] 3) 1,000 mg PO BID ROSS Stop: 06/30/17 16:59 Last Admin: 05/03/17 08:08 Dose: 1,000 mg Guaifenesin (Robitussin) 100 mg PO Q4H PRN PRN Reason: Cough or Congestion Stop: 06/30/17 16:23 Hydralazine HCl (Apresoline) 100 mg PO BID ROSS Stop: 06/30/17 16:59 Last Admin: 05/03/17 08:09 Dose: 100 mg Dextrose/Sodium Chloride (D5-0.45ns) 1,000 mls @ 100 mls/hr IV .Q10H [facility]S Stop: 06/30/17 16:23 Last Admin: 05/02/17 11:13 Dose: 100 mls/hr Ceftriaxone Sodium 1 gm/ (Sodium Chloride) 50 mls @ 100 mls/hr IV Q24HR ROSS Stop: 07/01/17 14:14 Last Admin: 05/03/17 13:19 Dose: 100 mls/hr Insulin Aspart (Novolog Insulin Sliding Scale) 0 units SUBQ ACHS ROSS PRN Reason: Protocol Stop: 07/01/17 16:29 Last Admin: 05/03/17 12:37 Dose: 8 units Ipratropium [place] (Atrovent Neb 0.5mg/2.5ml) 0.5 mg HHN QIDRT [facility] Stop: 06/30/17 18:59 Last Admin: 05/03/17 10:48 Dose: 0.5 mg Lisinopril (Zestril) 20 mg PO BID [facility] Stop: 06/30/17 16:59 Last Admin: 05/03/17 08:09 Dose: 20 mg Magnesium Hydroxide (Milk Of Magnesia) 30 ml PO DAILY PRN PRN Reason: Constipation Stop: 06/30/17 16:23 Metformin HCl (Glucophage) 500 mg PO DAILY [facility] Stop: 07/01/17 08:59 Last Admin: 05/03/17 08:08 Dose: 500 mg Ondansetron HCl (Zofran) 4 mg IV Q8H PRN PRN Reason: Nausea / Vomiting Stop: 06/30/17 16:23 Risperidone (Risperdal) 1 mg PO HS [facility] PRN Reason: Protocol Stop: 06/30/17 20:59 Sodium Phosphate (Fleet Enema) 135 ml RC Q72H PRN PRN Reason: IF DULCOLAX INEFFECTIVE Stop: 06/30/17 16:23 Vitamin D (Vitamin D) 800 iu PO DAILY [facility] Stop: 07/01/17 08:59 Last Admin: 05/03/17 08:09 Dose: 800 iu General: weak, alert HEENT: NC/AT, PERRLA Neck: Supple Lungs: ronchi Cardiovascular: RRR, Normal S1, Normal S2, without murmur Abdomen: soft, non-tender, non-distended, positive bowel sound Neurological: alert - Procedures Procedures: Procedures Procedure Code Date ASPIR CURETT UTERUS NEC 69.59 10/29/11 BIOPSY OF CERVIX 53563 09/05/94 CERVICAL LES DESTRUC NEC 67.39 09/05/94 CONTINUOUS INVASIVE MECHANICAL VENTILATION <96 CONSEC HRS 96.71 09/01/14 D & C NEC 69.09 09/05/94 DILATION AND CURETTAGE 75127 10/29/11 EMERGENCY DEPT VISIT 92047 05/28/11 GENITAL SURGERY PROCEDURE 95837 09/05/94 HYMENORRHAPHY 70.76 09/05/94 HYMENOTOMY 70.11 09/05/94 INCISION OF HYMEN 75579 09/05/94 LAPAROSCOPIC CHOLECYSTECTOMY 51.23 11/29/06 LAPAROSCOPIC CHOLECYSTECTOMY 98322 11/29/06 OTHER OPEN UMBILICAL HERNIORRHAPHY 53.49 11/29/06 RPR UMBIL JIHAN BLOCK > 5 YR 75912 11/29/06 Internal Medicine Assmt/Plan - Assessment Assessment: lactic acidosis urosepsis acute uti- esbl e.coli acute febrile illness acute renal insufficiency mild protein calorie malnutrition - Plan Plan: dc rocephin, start merrem cbc/bmp in am monitor glucose continue current plan of care Nutritional Asmnt/Malnutr-PDOC - Dietary Evaluation Malnutrition Findings (Please click <Entered> for more info): Nutritional Asmnt/Malnutrition Start: 05/02/17 14: 40 Text: Status: Complete Freq: Document 05/02/17 14:40 [email or web address] (Rec: 05/02/17 14:55 MMULHERN LISETTE- [email or web address]) Nutritional Asmnt/Malnutrition Patient General Information Nutritional Screening High Risk Consult Diagnosis Urosepsis Pertinent Medical Hx/Surgical Hx Hypertension, Diabetes, Asthma , COPD, history of CVA, TIA, seizure dementia, gastritis, colitis, umbilical hernia, anemia, hydrocephalus Subjective Information Consult received for Darrell Aldridge . Also high risk due to glucose 268 on admission. Per H&P, patient is a resident of a senior care. Current Diet Order/ Nutrition Support Pureed Patient / S.O Not Indicated Pertinent Medications vitamin C, Dulcolax, phoslo, vitamin B12, D5-0.45NS @100ml/ hr, pepcid, iron, omega 3, Novolog, MOM, Metformin, zofran, fleet enema, vitamin D Pertinent Labs (05/02) Na 130, Glucose 259-345 since admission, HGA1C 7, albumin 3.1 Nutritional Hx/Data Height 4 ft 9 in Height (Calculated Centimeters) 144.8 Current Weight (lbs) 115 lb Weight (Calculated Kilograms) 52.2 Weight (Calculated Grams) 24537.1 Ong Body Weight 92.5 % Ong Body Weight 124 Body Mass Index (BMI) 24.8 Recent Weight Change No Weight Status Overweight GI Symptoms GI Symptoms None Last BM None noted since admission Difficult in: Chewing Food Allergies No: none indicated Cultural/Ethnic/Sikh Belief None indicated Skin Integrity/Comment: Darrell Aldridge, Intact Current %PO Good (75-100%) Estimated Nutritional Goals BEE in Kcals: Using Current wt Calories/Kcals/Kg 52.2kg CBW - 25-30 kcal/kg Kcals Calculated ~1496-6434 kcal/day Protein: Using Current wt Protein g/k gm/kg using CBW Protein Calculated ~50 gm/day Fluid: ml ~7851-4150 ml/day (1 ml/kcal) Nutritional Problem 1. Problem Problem Altered nutrition related lab values related to Etiology uncontrolled hyperglycemia and fluid/electrolyte imbalance aeb Signs/Symptoms: Na 130, Glucose 259-345 since admission, HGA1C 7 Intervention/Recommendation Comments 1. Continue pureed diet as tolerated by patient. consider adding 45 gm CCHO restriction for further blood glucose control. 2. MD to modify insulin regimen for optimal glycemic control. 3. Consider testing phosphorus level to determine need for Phoslo. Expected Outcomes/Goals Expected Outcomes/Goals Oral intake >75% of meals, weight stable, nutrition related labs/glucose normalize , improved skin integrity F/U as MR in 3-5 days (05/05- )
[2017-05-03] MEDS: Meropenem 1 GM in Sodium Chloride 0.9% 100 ML IV SCH (15:38)
[2017-05-04] MEDS: Meropenem 1 GM in Sodium Chloride 0.9% 100 ML IV SCH ×2 (02:24→15:38)
[2017-05-04 07:10] LABS: % BASOPHILS 0.8 % (0.0-2.0); % EOSINOPHILS 0.3 % (0.0-5.0); % LYMPHOCYTES 7.4 % (20.0-50.0); % MONOCYTES 8.9 % (2.0-10.0); % NEUTROPHILS 82.6 % (40.0-80.0); BASOPHILE ABSOLUTE 0.1 Th/cumm (0-0.2); EOSINOPHILE ABSOLUTE 0.1 Th/cmm (0.1-0.4); HEMATOCRIT 26.7 % (41.0-60); HEMOGLOBIN 8.8 gm/dL (12-16); LYMPHOCYTE ABSOLUTE 1.4 Th/cmm (1.5-3.0); MEAN CELL VOLUME 85.5 fl (81-100); MEAN CORPUSCULAR HEMOGLOBIN 28.3 pg (27.0-31.0); MEAN CORPUSCULAR HGB CONC 33.1 pg (28.0-36.0); MONOCYTE ABSOLUTE 1.6 Th/cmm (0.3-1.0); NEUTROPHILE ABSOLUTE 15.3 Th/cmm (1.8-8.0); PLATELET COUNT 268 Th/cmm (150-400); RED BLOOD COUNT 3.12 Mil/cmm (3.80-5.20); RED CELL DISTRIBUTION WIDTH 13.9 % (11.5-20.0)
[2017-05-04] MEDS: Albuterol Nebulizer 2.5mg/3mL HHN SCH ×4 (07:12→18:58)
[2017-05-04] MEDS: Ipratropium Neb 0.5 mg/2.5 mL UD HHN SCH ×4 (07:12→18:58)
[2017-05-04 07:19] LABS: WHITE BLOOD COUNT 18.5 Th/cmm (4.8-10.8)
[2017-05-04 07:40] LABS: ANION GAP 6.2 (7.0-16.0); BUN - UREA NITROGEN 13 mg/dL (7-25); CALCIUM SERUM 9.2 mg/dL (8.6-10.3); CARBON DIOXIDE 32.3 mEq/L (21.0-31.0); CHLORIDE 94 mEq/L (98-107); CREATININE - SERUM 0.7 mg/dL (0.6-1.2); GLUCOSE 264 mg/dL (70-105); POTASSIUM SERUM 3.5 mEq/L (3.5-5.1); SODIUM SERUM 129 mEq/L (136-145)
[2017-05-04] MEDS: INSULIN ASPART SLIDING SCALE 100 UNITS/ML UNIT SUBQ SCH ×4 (08:34→21:38)
[2017-05-04] MEDS: Ferrous Sulfate 325 MG TAB PO SCH ×2 (09:44→17:39)
[2017-05-04] MEDS: Multivitamin w/ Minerals Tab PO SCH (09:46)
[2017-05-04] MEDS: Fish Oil 1,000 MG SGL PO SCH ×2 (09:46→19:13)
--- NOTE | 2017-05-04 11:43 | Internal Medicine Prog Note ---
Internal Medicine Subjective - Subjective Service Date: 05/04/17 Patient seen and examined:: with staff Patient is:: awake, verbal Per staff patient has:: tolerating meds Internal Medicine Objective - Results Result Diagrams: 05/04/17 06:06 05/04/17 06:06 Recent Labs: Laboratory Last Values WBC 18.5 Th/cmm (4.8-10.8) H 05/04/17 06:06 RBC 3.12 Mil/cmm (3.80-5.20) L 05/04/17 06:06 Hgb 8.8 gm/dL (12-16) L 05/04/17 06:06 Hct 26.7 % (41.0-60) L 05/04/17 06:06 MCV 85.5 fl (81-100) 05/04/17 06:06 MCH 28.3 pg (27.0-31.0) 05/04/17 06:06 MCHC Differential 33.1 pg (28.0-36.0) 05/04/17 06:06 RDW 13.9 % (11.5-20.0) 05/04/17 06:06 Plt Count 268 Th/cmm (150-400) 05/04/17 06:06 MPV 7.0 fl 05/04/17 06:06 Neutrophils % 82.6 % (40.0-80.0) H 05/04/17 06:06 Band Neutrophils % 22 % (0-10) H 05/03/17 04:35 Lymphocytes % 7.4 % (20.0-50.0) L 05/04/17 06:06 Monocytes % 8.9 % (2.0-10.0) 05/04/17 06:06 Eosinophils % 0.3 % (0.0-5.0) 05/04/17 06:06 Basophils % 0.8 % (0.0-2.0) 05/04/17 06:06 Neutrophils (Manual) 64 % (40-80) 05/03/17 04:35 Lymphocytes 9 % (20-50) L 05/03/17 04:35 Monocytes 5 % (2-10) 05/03/17 04:35 Metamyelocytes 2 % (0-0) H 05/02/17 05:59 Platelet Estimate ADEQUATE (NORMAL) 05/03/17 04:35 Sodium 129 mEq/L (136-145) L 05/04/17 06:06 Potassium 3.5 mEq/L (3.5-5.1) 05/04/17 06:06 Chloride 94 mEq/L (98-107) L 05/04/17 06:06 Carbon Dioxide 32.3 mEq/L (21.0-31.0) H 05/04/17 06:06 Anion Gap 6.2 (7.0-16.0) L 05/04/17 06:06 BUN 13 mg/dL (7-25) 05/04/17 06:06 Creatinine 0.7 mg/dL (0.6-1.2) 05/04/17 06:06 Est GFR ( Amer) TNP 05/04/17 06:06 Est GFR (Non-Af Amer) TNP 05/04/17 06:06 BUN/Creatinine Ratio 18.6 05/04/17 06:06 Glucose 264 mg/dL (70-105) H 05/04/17 06:06 POC Glucose 262 MG/DL (70 - 105) H 05/04/17 06:34 Hemoglobin A1c % 7.0 % (4.0-6.0) H 05/01/17 10:45 Whole Bld Lactic Acid 3.02 mmol/L (0.60-1.99) H* 05/01/17 Unknown Calcium 9.2 mg/dL (8.6-10.3) 05/04/17 06:06 Total Bilirubin 0.4 mg/dL (0.3-1.0) 05/01/17 10:22 AST 20 U/L (13-39) 05/01/17 10:22 ALT 15 U/L (7-52) 05/01/17 10:22 Alkaline Phosphatase 98 U/L (34-104) 05/01/17 10:22 Troponin I 0.03 ng/mL (0.01-0.05) 05/01/17 14:44 B-Natriuretic Peptide 209.0 pg/mL (5.0-100.0) H 05/01/17 10:22 Total Protein 6.1 gm/dL (6.0-8.3) 05/01/17 10:22 Albumin 3.1 gm/dL (3.7-5.3) L 05/01/17 10:22 Globulin 3.0 gm/dL 05/01/17 10:22 Albumin/Globulin Ratio 1.0 (1.0-1.8) 05/01/17 10:22 TSH 1.72 uIU/ml (0.34-5.60) 05/01/17 10:22 Urine Source CATH 05/01/17 10:45 Urine Color YELLOW 05/01/17 10:45 Urine Clarity CLOUDY (CLEAR) H 05/01/17 10:45 Urine pH 5.5 (4.6 - 8.0) 05/01/17 10:45 Ur Specific [place] 1.020 (1.005-1.030) 05/01/17 10:45 Urine Protein 30 mg/dL (NEGATIVE) H 05/01/17 10:45 Urine Glucose (UA) 250 mg/dL (NEGATIVE) H 05/01/17 10:45 Urine Ketones NEGATIVE mg/dL (NEGATIVE) 05/01/17 10:45 Urine Blood TRACE (NEGATIVE) 05/01/17 10:45 Urine Nitrate POSITIVE (NEGATIVE) H 05/01/17 10:45 Urine Bilirubin NEGATIVE (NEGATIVE) 05/01/17 10:45 Urine Urobilinogen 0.2 E.U./dL (0.2 - 1.0) 05/01/17 10:45 Ur Leukocyte Esterase LARGE (NEGATIVE) H 05/01/17 10:45 Urine RBC 2-5 /hpf (0-5) 05/01/17 10:45 Urine WBC >100 /hpf (0-5) H 05/01/17 10:45 Ur Epithelial Cells FEW /lpf (FEW) 05/01/17 10:45 Urine Bacteria MANY /hpf (NONE SEEN) H 05/01/17 10:45 - Physical Exam Vitals and I&O: Vital Signs Temp 99.0 F 05/04/17 04:00 Pulse 102 05/04/17 10:47 Resp 16 05/04/17 10:47 BP 167/91 05/04/17 09:46 Pulse Ox 99 05/04/17 10:47 Intake & Output 05/03/17 05/04/17 05/04/17 18:59 06:59 18:59 Intake Total 500 Balance 500 Weight (lbs) 117 lb 11.2 oz 122 lb 122 lb Intake: Intake, IV Amount 100 Meropenem 1 gm In Sodium 100 Chloride 0.9% 100 ml @ 100 mls/hr IV Q12H [facility] Rx #:[id number] Oral 400 Other: # Voids 4 3 3 # Bowel Movements 2 0 0 Active Medications: Current Medications Acetaminophen (Tylenol) 650 mg PO Q4HR PRN PRN Reason: Pain Or Fever above 101 Stop: 06/30/17 16:23 Last Admin: 05/03/17 23:44 Dose: 650 mg Albuterol Sulfate (Albuterol 2.5mg/3ml Neb Ud) 2.5 mg HHN QIDRT ROSS Stop: 06/30/17 18:59 Last Admin: 05/04/17 10:40 Dose: 2.5 mg Ascorbic Acid (Vitamin C) 500 mg PO BID ROSS Stop: 06/30/17 16:59 Last Admin: 05/04/17 09:44 Dose: 500 mg Bisacodyl (Dulcolax 10 Mg Supp) 10 mg RC DAILY PRN PRN Reason: Constipation Stop: 06/30/17 16:23 Calcium Acetate (Phoslo) 1,334 mg PO TID [facility] Stop: 06/30/17 16:23 Last Admin: 05/04/17 09:46 Dose: 1,334 mg Cyanocobalamin (Vitamin B12) 1,000 mcg PO DAILY [facility] Stop: 07/01/17 08:59 Last Admin: 05/04/17 09:44 Dose: 1,000 mcg Famotidine (Pepcid) 20 mg PO BID ROSS Stop: 06/30/17 16:59 Last Admin: 05/04/17 09:44 Dose: 20 mg Ferrous Sulfate (Iron) 325 mg PO BID ROSS Stop: 06/30/17 16:59 Last Admin: 05/04/17 09:44 Dose: 325 mg Fish Oil ([place] 3) 1,000 mg PO BID [facility] Stop: 06/30/17 16:59 Last Admin: 05/04/17 09:46 Dose: 1,000 mg Guaifenesin (Robitussin) 100 mg PO Q4H PRN PRN Reason: Cough or Congestion Stop: 06/30/17 16:23 Hydralazine HCl (Apresoline) 100 mg PO BID [facility] Stop: 06/30/17 16:59 Last Admin: 05/04/17 09:44 Dose: 100 mg Dextrose/Sodium Chloride (D5-0.45ns) 1,000 mls @ 100 mls/hr IV .Q10H [facility] Stop: 06/30/17 16:23 Last Admin: 05/02/17 11:13 Dose: 100 mls/hr Meropenem 1 gm/ Sodium (Chloride) 100 mls @ 100 mls/hr IV Q12H [facility] Stop: 07/02/17 13:59 Last Admin: 05/04/17 02:24 Dose: 100 mls/hr Insulin Aspart (Novolog Insulin Sliding Scale) 0 units SUBQ ACHS ROSS PRN Reason: Protocol Stop: 07/01/17 16:29 Last Admin: 05/04/17 08:34 Dose: Not Given Ipratropium [place] (Atrovent Neb 0.5mg/2.5ml) 0.5 mg HHN QIDRT [facility] Stop: 06/30/17 18:59 Last Admin: 05/04/17 10:40 Dose: 0.5 mg Lisinopril (Zestril) 20 mg PO BID [facility] Stop: 06/30/17 16:59 Last Admin: 05/04/17 09:46 Dose: 20 mg Magnesium Hydroxide (Milk Of Magnesia) 30 ml PO DAILY PRN PRN Reason: Constipation Stop: 06/30/17 16:23 Metformin HCl (Glucophage) 500 mg PO DAILY [facility] Stop: 07/01/17 08:59 Last Admin: 05/04/17 09:46 Dose: 500 mg Ondansetron HCl (Zofran) 4 mg IV Q8H PRN PRN Reason: Nausea / Vomiting Stop: 06/30/17 16:23 Risperidone (Risperdal) 1 mg PO HS [facility] PRN Reason: Protocol Stop: 06/30/17 20:59 Sodium Phosphate (Fleet Enema) 135 ml RC Q72H PRN PRN Reason: IF DULCOLAX INEFFECTIVE Stop: 06/30/17 16:23 Vitamin D (Vitamin D) 800 iu PO DAILY [facility] Stop: 07/01/17 08:59 Last Admin: 05/04/17 09:46 Dose: 800 iu General: weak, alert HEENT: NC/AT, PERRLA Neck: Supple Lungs: ronchi Cardiovascular: RRR, Normal S1, Normal S2, without murmur Abdomen: soft, non-tender, non-distended, positive bowel sound Neurological: alert - Procedures Procedures: Procedures Procedure Code Date ASPIR CURETT UTERUS NEC 69.59 10/29/11 BIOPSY OF CERVIX 46991 09/05/94 CERVICAL LES DESTRUC NEC 67.39 09/05/94 CONTINUOUS INVASIVE MECHANICAL VENTILATION <96 CONSEC HRS 96.71 09/01/14 D & C NEC 69.09 09/05/94 DILATION AND CURETTAGE 34945 10/29/11 EMERGENCY DEPT VISIT 90349 05/28/11 GENITAL SURGERY PROCEDURE 44249 09/05/94 HYMENORRHAPHY 70.76 09/05/94 HYMENOTOMY 70.11 09/05/94 INCISION OF HYMEN 86329 09/05/94 LAPAROSCOPIC CHOLECYSTECTOMY 51.23 11/29/06 LAPAROSCOPIC CHOLECYSTECTOMY 49484 11/29/06 OTHER OPEN UMBILICAL HERNIORRHAPHY 53.49 11/29/06 RPR UMBIL JIHAN BLOCK > 5 YR 40013 11/29/06 Internal Medicine Assmt/Plan - Assessment Assessment: lactic acidosis urosepsis acute uti- esbl e.coli acute febrile illness acute renal insufficiency mild protein calorie malnutrition - Plan Plan: LTAC eval continue merrem cbc/bmp in am monitor glucose continue current plan of care Nutritional Asmnt/Malnutr-PDOC - Dietary Evaluation Malnutrition Findings (Please click <Entered> for more info): Nutritional Asmnt/Malnutrition Start: 05/02/17 14: 40 Text: Status: Complete Freq: Document 05/02/17 14:40 MMULHERN (Rec: 05/02/17 14:55 MMULHERRina KNOX- [id number]) Nutritional Asmnt/Malnutrition Patient General Information Nutritional Screening High Risk Consult Diagnosis Urosepsis Pertinent Medical Hx/Surgical Hx Hypertension, Diabetes, Asthma , COPD, history of CVA, TIA, seizure dementia, gastritis, colitis, umbilical hernia, anemia, hydrocephalus Subjective Information Consult received for Darrell 14 . Also high risk due to glucose 268 on admission. Per H&P, patient is a resident of a long term. Current Diet Order/ Nutrition Support Pureed Patient / S.O Not Indicated Pertinent Medications vitamin C, Dulcolax, phoslo, vitamin B12, D5-0.45NS @100ml/ hr, pepcid, iron, omega 3, Novolog, MOM, Metformin, zofran, fleet enema, vitamin D Pertinent Labs (05/02) Na 130, Glucose 259-345 since admission, HGA1C 7, albumin 3.1 Nutritional Hx/Data Height 4 ft 9 in Height (Calculated Centimeters) 144.8 Current Weight (lbs) 115 lb Weight (Calculated Kilograms) 52.2 Weight (Calculated Grams) 91957.1 [place] Body Weight 92.5 % [place] Body Weight 124 Body Mass Index (BMI) 24.8 Recent Weight Change No Weight Status Overweight GI Symptoms GI Symptoms None Last BM None noted since admission Difficult in: Chewing Food Allergies No: none indicated Cultural/Ethnic/Mandaeism Belief None indicated Skin Integrity/Comment: Darrell 14, Intact Current %PO Good (75-100%) Estimated Nutritional Goals BEE in Kcals: Using Current wt Calories/Kcals/Kg 52.2kg CBW - 25-30 kcal/kg Kcals Calculated ~3010-6045 kcal/day Protein: Using Current wt Protein g/k gm/kg using CBW Protein Calculated ~50 gm/day Fluid: ml ~5623-9648 ml/day (1 ml/kcal) Nutritional Problem 1. Problem Problem Altered nutrition related lab values related to Etiology uncontrolled hyperglycemia and fluid/electrolyte imbalance aeb Signs/Symptoms: Na 130, Glucose 259-345 since admission, HGA1C 7 Intervention/Recommendation Comments 1. Continue pureed diet as tolerated by patient. consider adding 45 gm CCHO restriction for further blood glucose control. 2. MD to modify insulin regimen for optimal glycemic control. 3. Consider testing phosphorus level to determine need for Phoslo. Expected Outcomes/Goals Expected Outcomes/Goals Oral intake >75% of meals, weight stable, nutrition related labs/glucose normalize , improved skin integrity F/U as MR in 3-5 days (05/05- )
[2017-05-04] MEDS ORDERED: Probiotic Screen MC PRN (12:45)
[2017-05-04] MEDS: Lactobacillus Rhamnosus GG 15 Billion CFU CAP.SPRINK PO SCH (13:48)
[2017-05-04] MEDS: D5-0.45NS 1,000 ML IV SCH (17:39)
[2017-05-05] MEDS: Meropenem 1 GM in Sodium Chloride 0.9% 100 ML IV SCH ×2 (02:41→13:47)
[2017-05-05 06:33] LABS: HEMATOCRIT 28.2 % (41.0-60); HEMOGLOBIN 9.4 gm/dL (12-16); MEAN CELL VOLUME 85.1 fl (81-100); MEAN CORPUSCULAR HEMOGLOBIN 28.2 pg (27.0-31.0); MEAN CORPUSCULAR HGB CONC 33.1 pg (28.0-36.0); PLATELET COUNT 267 Th/cmm (150-400); RED BLOOD COUNT 3.32 Mil/cmm (3.80-5.20); RED CELL DISTRIBUTION WIDTH 13.7 % (11.5-20.0)
[2017-05-05 06:38] LABS: WHITE BLOOD COUNT 15.3 Th/cmm (4.8-10.8)
[2017-05-05 07:13] LABS: ANION GAP 8.5 (7.0-16.0); BUN - UREA NITROGEN 11 mg/dL (7-25); CALCIUM SERUM 9.7 mg/dL (8.6-10.3); CARBON DIOXIDE 33.2 mEq/L (21.0-31.0); CHLORIDE 93 mEq/L (98-107); CREATININE - SERUM 0.6 mg/dL (0.6-1.2); POTASSIUM SERUM 3.7 mEq/L (3.5-5.1); SODIUM SERUM 131 mEq/L (136-145)
[2017-05-05 07:14] LABS: GLUCOSE 158 mg/dL (70-105)
[2017-05-05 07:32] LABS: BAND NEUTROPHILE 10 % (0-10); LYMPHOCYTE 9 % (20-50); MONOCYTE 9 % (2-10); NEUTROPHILS 72 % (40-80); TOTAL CELLS COUNTED 100
[2017-05-05] MEDS: Albuterol Nebulizer 2.5mg/3mL HHN SCH ×3 (07:35→15:22)
[2017-05-05] MEDS: Ipratropium Neb 0.5 mg/2.5 mL UD HHN SCH ×3 (07:35→15:22)
[2017-05-05] MEDS: INSULIN ASPART SLIDING SCALE 100 UNITS/ML UNIT SUBQ SCH ×3 (08:14→17:41)
[2017-05-05] MEDS: Fish Oil 1,000 MG SGL PO SCH ×2 (08:27→16:25)
[2017-05-05] MEDS: Ferrous Sulfate 325 MG TAB PO SCH ×2 (08:27→16:27)
[2017-05-05] MEDS: Multivitamin w/ Minerals Tab PO SCH (08:27)
[2017-05-05] MEDS: Lactobacillus Rhamnosus GG 15 Billion CFU CAP.SPRINK PO SCH (08:27)
--- NOTE | 2017-05-05 13:39 | Internal Medicine Prog Note ---
Internal Medicine Subjective - Subjective Service Date: 05/05/17 ([id number] dc summary dictated) Patient seen and examined:: with staff Patient is:: awake, verbal Per staff patient has:: tolerating meds Internal Medicine Objective - Results Result Diagrams: 05/05/17 05:30 05/05/17 05:30 Recent Labs: Laboratory Last Values WBC 15.3 Th/cmm (4.8-10.8) H 05/05/17 05:30 RBC 3.32 Mil/cmm (3.80-5.20) L 05/05/17 05:30 Hgb 9.4 gm/dL (12-16) L 05/05/17 05:30 Hct 28.2 % (41.0-60) L 05/05/17 05:30 MCV 85.1 fl (81-100) 05/05/17 05:30 MCH 28.2 pg (27.0-31.0) 05/05/17 05:30 MCHC Differential 33.1 pg (28.0-36.0) 05/05/17 05:30 RDW 13.7 % (11.5-20.0) 05/05/17 05:30 Plt Count 267 Th/cmm (150-400) 05/05/17 05:30 MPV 7.0 fl 05/05/17 05:30 Neutrophils % [employer] 05/05/17 05:30 Band Neutrophils % 10 % (0-10) 05/05/17 05:30 Lymphocytes % [employer] 05/05/17 05:30 Monocytes % [employer] 05/05/17 05:30 Eosinophils % [employer] 05/05/17 05:30 Basophils % [employer] 05/05/17 05:30 Neutrophils (Manual) 72 % (40-80) 05/05/17 05:30 Lymphocytes 9 % (20-50) L 05/05/17 05:30 Monocytes 9 % (2-10) 05/05/17 05:30 Metamyelocytes 2 % (0-0) H 05/02/17 05:59 Platelet Estimate ADEQUATE (NORMAL) 05/03/17 04:35 Sodium 131 mEq/L (136-145) L 05/05/17 05:30 Potassium 3.7 mEq/L (3.5-5.1) 05/05/17 05:30 Chloride 93 mEq/L (98-107) L 05/05/17 05:30 Carbon Dioxide 33.2 mEq/L (21.0-31.0) H 05/05/17 05:30 Anion Gap 8.5 (7.0-16.0) 05/05/17 05:30 BUN 11 mg/dL (7-25) 05/05/17 05:30 Creatinine 0.6 mg/dL (0.6-1.2) 05/05/17 05:30 Est GFR ( Amer) TNP 05/05/17 05:30 Est GFR (Non-Af Amer) TNP 05/05/17 05:30 BUN/Creatinine Ratio 18.3 05/05/17 05:30 Glucose 158 mg/dL (70-105) H D 05/05/17 05:30 POC Glucose 190 MG/DL (70 - 105) H 05/05/17 11:20 Hemoglobin A1c % 7.0 % (4.0-6.0) H 05/01/17 10:45 Whole Bld Lactic Acid 3.02 mmol/L (0.60-1.99) H* 05/01/17 Unknown Calcium 9.7 mg/dL (8.6-10.3) 05/05/17 05:30 Total Bilirubin 0.4 mg/dL (0.3-1.0) 05/01/17 10:22 AST 20 U/L (13-39) 05/01/17 10:22 ALT 15 U/L (7-52) 05/01/17 10:22 Alkaline Phosphatase 98 U/L (34-104) 05/01/17 10:22 Troponin I 0.03 ng/mL (0.01-0.05) 05/01/17 14:44 B-Natriuretic Peptide 209.0 pg/mL (5.0-100.0) H 05/01/17 10:22 Total Protein 6.1 gm/dL (6.0-8.3) 05/01/17 10:22 Albumin 3.1 gm/dL (3.7-5.3) L 05/01/17 10:22 Globulin 3.0 gm/dL 05/01/17 10:22 Albumin/Globulin Ratio 1.0 (1.0-1.8) 05/01/17 10:22 TSH 1.72 uIU/ml (0.34-5.60) 05/01/17 10:22 Urine Source CATH 05/01/17 10:45 Urine Color YELLOW 05/01/17 10:45 Urine Clarity CLOUDY (CLEAR) H 05/01/17 10:45 Urine pH 5.5 (4.6 - 8.0) 05/01/17 10:45 Ur Specific [place] 1.020 (1.005-1.030) 05/01/17 10:45 Urine Protein 30 mg/dL (NEGATIVE) H 05/01/17 10:45 Urine Glucose (UA) 250 mg/dL (NEGATIVE) H 05/01/17 10:45 Urine Ketones NEGATIVE mg/dL (NEGATIVE) 05/01/17 10:45 Urine Blood TRACE (NEGATIVE) 05/01/17 10:45 Urine Nitrate POSITIVE (NEGATIVE) H 05/01/17 10:45 Urine Bilirubin NEGATIVE (NEGATIVE) 05/01/17 10:45 Urine Urobilinogen 0.2 E.U./dL (0.2 - 1.0) 05/01/17 10:45 Ur Leukocyte Esterase LARGE (NEGATIVE) H 05/01/17 10:45 Urine RBC 2-5 /hpf (0-5) 05/01/17 10:45 Urine WBC >100 /hpf (0-5) H 05/01/17 10:45 Ur Epithelial Cells FEW /lpf (FEW) 05/01/17 10:45 Urine Bacteria MANY /hpf (NONE SEEN) H 05/01/17 10:45 - Physical Exam Vitals and I&O: Vital Signs Temp 97.7 F 05/05/17 11:46 Pulse 90 05/05/17 12:17 Resp 16 05/05/17 12:17 BP 158/76 05/05/17 11:46 Pulse Ox 98 05/05/17 12:17 Intake & Output 05/04/17 05/05/17 05/05/17 18:59 06:59 18:59 Intake Total 100 100 Balance 100 100 Weight (lbs) 122 lb 122 lb 122 lb Intake: Intake, IV Amount 100 Meropenem 1 gm In Sodium 100 Chloride 0.9% 100 ml @ 100 mls/hr IV Q12H [facility] Rx #:[id number] Oral 100 Other: # Voids 3 3 # Bowel Movements 0 0 Active Medications: Current Medications Acetaminophen (Tylenol) 650 mg PO Q4HR PRN PRN Reason: Pain Or Fever above 101 Stop: 06/30/17 16:23 Last Admin: 05/04/17 19:37 Dose: 650 mg Albuterol Sulfate (Albuterol 2.5mg/3ml Neb Ud) 2.5 mg HHN QIDRT [facility] Stop: 06/30/17 18:59 Last Admin: 05/05/17 12:14 Dose: 2.5 mg Ascorbic Acid (Vitamin C) 500 mg PO BID [facility] Stop: 06/30/17 16:59 Last Admin: 05/05/17 08:27 Dose: 500 mg Bisacodyl (Dulcolax 10 Mg Supp) 10 mg RC DAILY PRN PRN Reason: Constipation Stop: 06/30/17 16:23 Calcium Acetate (Phoslo) 1,334 mg PO TID [facility] Stop: 06/30/17 16:23 Last Admin: 05/05/17 08:27 Dose: 1,334 mg Cyanocobalamin (Vitamin B12) 1,000 mcg PO DAILY [facility] Stop: 07/01/17 08:59 Last Admin: 05/05/17 08:27 Dose: 1,000 mcg Famotidine (Pepcid) 20 mg PO BID [facility] Stop: 06/30/17 16:59 Last Admin: 05/05/17 08:27 Dose: 20 mg Ferrous Sulfate (Iron) 325 mg PO BID [facility] Stop: 06/30/17 16:59 Last Admin: 05/05/17 08:27 Dose: 325 mg Fish Oil ([place] 3) 1,000 mg PO BID [facility] Stop: 06/30/17 16:59 Last Admin: 05/05/17 08:27 Dose: 1,000 mg Guaifenesin (Robitussin) 100 mg PO Q4H PRN PRN Reason: Cough or Congestion Stop: 06/30/17 16:23 Hydralazine HCl (Apresoline) 100 mg PO BID [facility] Stop: 06/30/17 16:59 Last Admin: 05/05/17 08:30 Dose: 100 mg Meropenem 1 gm/ Sodium (Chloride) 100 mls @ 100 mls/hr IV Q12H [facility] Stop: 07/02/17 13:59 Last Admin: 05/05/17 02:41 Dose: 100 mls/hr Dextrose/Sodium Chloride (D5-0.45ns) 1,000 mls @ 60 mls/hr IV .[id number] [facility] Stop: 07/03/17 14:22 Last Admin: 05/04/17 17:39 Dose: 60 mls/hr Insulin Aspart (Novolog Insulin Sliding Scale) 0 units SUBQ ACHS [facility] PRN Reason: Protocol Stop: 07/01/17 16:29 Last Admin: 05/05/17 08:14 Dose: 2 units Ipratropium [place] (Atrovent Neb 0.5mg/2.5ml) 0.5 mg HHN QIDRT [facility] Stop: 06/30/17 18:59 Last Admin: 05/05/17 12:14 Dose: 0.5 mg Lactobacillus Rhamnosus ([place] 15b) 1 each PO DAILY [facility] Stop: 07/03/17 13:59 Last Admin: 05/05/17 08:27 Dose: 1 each Lisinopril (Zestril) 20 mg PO BID [facility] Stop: 06/30/17 16:59 Last Admin: 05/05/17 08:28 Dose: 20 mg Magnesium Hydroxide (Milk Of Magnesia) 30 ml PO DAILY PRN PRN Reason: Constipation Stop: 06/30/17 16:23 Metformin HCl (Glucophage) 500 mg PO DAILY [facility] Stop: 07/01/17 08:59 Last Admin: 05/05/17 08:27 Dose: 500 mg Miscellaneous (Probiotic Screen) 1 ea MC PRN PRN PRN Reason: PROTOCOL Stop: 07/03/17 12:44 Ondansetron HCl (Zofran) 4 mg IV Q8H PRN PRN Reason: Nausea / Vomiting Stop: 06/30/17 16:23 Risperidone (Risperdal) 1 mg PO HS [facility] PRN Reason: Protocol Stop: 06/30/17 20:59 Last Admin: 05/04/17 21:35 Dose: 1 mg Sodium Phosphate (Fleet Enema) 135 ml RC Q72H PRN PRN Reason: IF DULCOLAX INEFFECTIVE Stop: 06/30/17 16:23 Vitamin D (Vitamin D) 800 iu PO DAILY [facility] Stop: 07/01/17 08:59 Last Admin: 05/05/17 08:27 Dose: 800 iu General: weak, alert HEENT: NC/AT, PERRLA Neck: Supple Lungs: ronchi Cardiovascular: RRR, Normal S1, Normal S2, without murmur Abdomen: soft, non-tender, non-distended, positive bowel sound Neurological: alert - Procedures Procedures: Procedures Procedure Code Date ASPIR CURETT UTERUS NEC 69.59 10/29/11 BIOPSY OF CERVIX 15188 09/05/94 CERVICAL LES DESTRUC NEC 67.39 09/05/94 CONTINUOUS INVASIVE MECHANICAL VENTILATION <96 CONSEC HRS 96.71 09/01/14 D & C NEC 69.09 09/05/94 DILATION AND CURETTAGE 91480 10/29/11 EMERGENCY DEPT VISIT 91188 05/28/11 GENITAL SURGERY PROCEDURE 78541 09/05/94 HYMENORRHAPHY 70.76 09/05/94 HYMENOTOMY 70.11 09/05/94 INCISION OF HYMEN 77654 09/05/94 LAPAROSCOPIC CHOLECYSTECTOMY 51.23 11/29/06 LAPAROSCOPIC CHOLECYSTECTOMY 60204 11/29/06 OTHER OPEN UMBILICAL HERNIORRHAPHY 53.49 11/29/06 RPR UMBIL JIHAN BLOCK > 5 YR 81576 11/29/06 Internal Medicine Assmt/Plan - Assessment Assessment: lactic acidosis urosepsis acute uti- esbl e.coli acute febrile illness acute renal insufficiency mild protein calorie malnutrition - Plan Plan: LTAC eval continue merrem cbc/bmp in am monitor glucose continue current plan of care Nutritional Asmnt/Malnutr-PDOC - Dietary Evaluation Malnutrition Findings (Please click <Entered> for more info): Nutritional Asmnt/Malnutrition Start: 05/02/17 14: 40 Text: Status: Complete Freq: Document 05/02/17 14:40 MMULJIHAN (Rec: 05/02/17 14:55 MMULHERN [facility]) Nutritional Asmnt/Malnutrition Patient General Information Nutritional Screening High Risk Consult Diagnosis Urosepsis Pertinent Medical Hx/Surgical Hx Hypertension, Diabetes, Asthma , COPD, history of CVA, TIA, seizure dementia, gastritis, colitis, umbilical hernia, anemia, hydrocephalus Subjective Information Consult received for Darrell 14 . Also high risk due to glucose 268 on admission. Per H&P, patient is a resident of a long term. Current Diet Order/ Nutrition Support Pureed Patient / S.O Not Indicated Pertinent Medications vitamin C, Dulcolax, phoslo, vitamin B12, D5-0.45NS @100ml/ hr, pepcid, iron, omega 3, Novolog, MOM, Metformin, zofran, fleet enema, vitamin D Pertinent Labs (05/02) Na 130, Glucose 259-345 since admission, HGA1C 7, albumin 3.1 Nutritional Hx/Data Height 4 ft 9 in Height (Calculated Centimeters) 144.8 Current Weight (lbs) 115 lb Weight (Calculated Kilograms) 52.2 Weight (Calculated Grams) 64434.1 [place] Body Weight 92.5 % [place] Body Weight 124 Body Mass Index (BMI) 24.8 Recent Weight Change No Weight Status Overweight GI Symptoms GI Symptoms None Last BM None noted since admission Difficult in: Chewing Food Allergies No: none indicated Cultural/Ethnic/Caodaism Belief None indicated Skin Integrity/Comment: Darrell 14, Intact Current %PO Good (75-100%) Estimated Nutritional Goals BEE in Kcals: Using Current wt Calories/Kcals/Kg 52.2kg CBW - 25-30 kcal/kg Kcals Calculated ~9827-3519 kcal/day Protein: Using Current wt Protein g/k gm/kg using CBW Protein Calculated ~50 gm/day Fluid: ml ~4266-3065 ml/day (1 ml/kcal) Nutritional Problem 1. Problem Problem Altered nutrition related lab values related to Etiology uncontrolled hyperglycemia and fluid/electrolyte imbalance aeb Signs/Symptoms: Na 130, Glucose 259-345 since admission, HGA1C 7 Intervention/Recommendation Comments 1. Continue pureed diet as tolerated by patient. consider adding 45 gm CCHO restriction for further blood glucose control. 2. MD to modify insulin regimen for optimal glycemic control. 3. Consider testing phosphorus level to determine need for Phoslo. Expected Outcomes/Goals Expected Outcomes/Goals Oral intake >75% of meals, weight stable, nutrition related labs/glucose normalize , improved skin integrity F/U as MR in 3-5 days (05/05- )
[2017-05-05] MEDS: D5-0.45NS 1,000 ML IV SCH (13:59)
--- NOTE | 2017-05-05 14:34 | Discharge Summary ---
DATE OF DISCHARGE: 05/05/2017 DISCHARGE DATE: 05/05/2017. DISCHARGE DIAGNOSES: Lactic acidosis, acute urinary tract infection, acute febrile illness, leukocytosis, acute renal insufficiency, mild protein calorie malnutrition. HISTORY OF PRESENT ILLNESS: This is a 76-year-old female is well known to me. This patient has a 1-day history of fever and congestion. The patient was recently discharged from this hospital last month for the same reasons. For further management the patient was admitted. PHYSICAL EXAMINATION: GENERAL: Elderly female, awake with confusion, no apparent distress. VITAL SIGNS: Stable. HEENT: Normocephalic, atraumatic. NECK: Supple. No mass. LUNGS: Few rhonchi heard. ABDOMEN: Soft, nontender. HOSPITAL COURSE: During the hospital stay, the patient was admitted to the telemetry unit. The patient was empiric IV antibiotics of Rocephin. The patient was kept on IV fluids for hydration; however, the patient had a urine culture done. Urine culture and blood culture both showed positive for E. coli ESBL. The patient's Rocephin antibiotic was changed to Merrem 1 gram IV every 12 hours. Due to the need of extensive IV therapy the patient will be transferred to [facility]. CONDITION UPON DISCHARGE: Fair. DISPOSITION: [facility]. JOB# [id number]
== END 2017-05-05 17:30 | DRG 871 ==
LOC: ER 09:58 → TELE 13:58
PROVIDERS: ADMIT Internal Medicine; ATTEND Internal Medicine
DX: A41.9 Sepsis, unspecified organism (principal); G93.41 Metabolic encephalopathy; N39.0 Urinary tract infection, site not specified; E11.9 Type 2 diabetes mellitus without complications; F03.90 Unspecified dementia, unspecified severity, without behavioral disturbance, psychotic disturbance, mood disturbance, and anxiety; E44.1 Mild protein-calorie malnutrition; F20.9 Schizophrenia, unspecified; B96.20 Unspecified Escherichia coli [E. coli] as the cause of diseases classified elsewhere; I10 Essential (primary) hypertension; Z16.12 Extended spectrum beta lactamase (ESBL) resistance; J44.9 Chronic obstructive pulmonary disease, unspecified; M19.90 Unspecified osteoarthritis, unspecified site; N28.9 Disorder of kidney and ureter, unspecified; Z68.26 Body mass index [BMI] 26.0-26.9, adult; Z86.73 Personal history of transient ischemic attack (TIA), and cerebral infarction without residual deficits
CPT/HCPCS: 36415-UA; 71045-TC; 80048-TC; 80053-TC; 81001-TC; 82948-90; 83036-90; 83605; 83880-TC; 84443-TC; 84484-TC; 85007-TC; 85025-TC; 85027-TC; 87086-90; 90779; 90799; 93005; 94760; J0696; J1815; J2185; J2930; J7030; J7613; Z7610

== ENCOUNTER 2017-05-24 18:11 | Inpatient (IN) | payer MEDICARE, MEDICAID ==
[2017-05-24] MEDS ORDERED: Sodium Chloride 0.9% 1,000 ML IV ONE ×2 (18:38→21:20)
[2017-05-24 18:50] LABS: % BASOPHILS 1.1 % (0.0-2.0); % MONOCYTES 7.2 % (2.0-10.0); % NEUTROPHILS 53.7 % (40.0-80.0); BASOPHILE ABSOLUTE 0.1 Th/cumm (0-0.2); EOSINOPHILE ABSOLUTE 0.5 Th/cmm (0.1-0.4); HEMATOCRIT 26.2 % (41.0-60); HEMOGLOBIN 8.4 gm/dL (12-16); LYMPHOCYTE ABSOLUTE 2.9 Th/cmm (1.5-3.0); MEAN CELL VOLUME 85.7 fl (81-100); MEAN CORPUSCULAR HEMOGLOBIN 27.6 pg (27.0-31.0); MEAN CORPUSCULAR HGB CONC 32.2 pg (28.0-36.0); MEAN PLATELET VOLUME 6.2 fl; MONOCYTE ABSOLUTE 0.6 Th/cmm (0.3-1.0); NEUTROPHILE ABSOLUTE 4.9 Th/cmm (1.8-8.0); PLATELET COUNT 408 Th/cmm (150-400); RED BLOOD COUNT 3.06 Mil/cmm (3.80-5.20); RED CELL DISTRIBUTION WIDTH 13.2 % (11.5-20.0)
[2017-05-24 19:05] LABS: ALB/GLOB RATIO 1.1 (1.0-1.8); ALBUMIN 3.4 gm/dL (3.7-5.3); ALKALINE PHOSPHATASE 111 U/L (34-104); ANION GAP 6.8 (7.0-16.0); BILIRUBIN,TOTAL 0.4 mg/dL (0.3-1.0); BUN - UREA NITROGEN 29 mg/dL (7-25); CALCIUM SERUM 10.9 mg/dL (8.6-10.3); CARBON DIOXIDE 35.2 mEq/L (21.0-31.0); CHLORIDE 92 mEq/L (98-107); CREATININE - SERUM 0.9 mg/dL (0.6-1.2); GLUCOSE 156 mg/dL (70-105); SGOT 13 U/L (13-39); SGPT/ALT 9 U/L (7-52); SODIUM SERUM 130 mEq/L (136-145); TOTAL PROTEIN,SERUM 6.6 gm/dL (6.0-8.3)
--- NOTE | 2017-05-24 20:54 | ER Physician Documentation ---
DATE OF SERVICE: EMERGENCY ROOM EVALUATION AND TREATMENT The patient was referred from [facility]. The patient's physician is Dr. Chris Whitt and attending supervisor stave finishing is Dr. Jessy Payne. Attending dentist is [facility]. Hospital preferences is [facility]. The patient is not in a position to give any history. The patient was referred here because of weakness, cough, shortness of breath, and lethargy. The patient has left-sided facial weakness that the patient has had for a long time. HISTORY OF PRESENT ILLNESS: The patient cannot give any history. His review of systems essentially could not be obtained, but the diagnosis I can mention it in the final section or I can say it right now and then reconfirm it in the final section. The patient has seizure disorder, diabetes mellitus type 2, glaucoma, gastritis, colitis, hypertension, osteoarthritis, umbilical hernia, COPD, paranoid schizophrenia, psychosis, anemia, CVA, hydrocephalus, CVS shunt, dysphagia, status post respiratory failure, unspecified pseudophakia. The patient has Medicare card number is [id number] and then , part A and B. Physician's order for life-sustaining treatment form was seen and it says selective treatment should be given to the patient while avoiding burdensome measures in addition to treatment described for comfort-focused treatment, use medical treatment, IV antibiotics, and fluids as indicated. May use noninvasive positive airway pressure. Generally avoid intensive care. The patient is coming from [place] ____ for emergency treatment. ALLERGIES: None known. PHYSICAL EXAMINATION: GENERAL: The patient appears to be awake, alert, and oriented, and not in any acute cardiorespiratory distress. Conjunctivae pink. Sclerae white. HEENT: Normal. VITAL SIGNS: Appear to be within normal limits. Once I get the vital signs, exact numbers, I will let you know. The [facility] as per the instruction of Dr. Whitt and the patient was advised to come here for treatment. Blood pressure was 179/81, pulse is 84, temperature is 98.4, and saturation is 94%. MEDICATIONS: The patient's routine medication in the [facility] included albuterol nebulizer, blood sugar checking, calcium acetate, famotidine, iron tablet, hydralazine tablets, lisinopril tablet, metformin tablet, omega-3 acid tablet, risperidone tablet, Theragran tablet, vitamin B12 tablets, vitamin C tablet, vitamin D3 tablet. P.r.n. medications include Biscolax, clonidine, Fleet enema, Mapap tablet, and milk of magnesia. On examination, the patient appears to be awake, alert, and does not answer any questions. Her left eye is always closed according to the nurse over there. There may be a previous partial leftover hemiplegia on the left side. The left arm is a little weaker than the right side. Right eye opens wide and the pupils are equal and there is no evidence of any pallor noted. There is no edema, no cyanosis, and no petechia. No ecchymosis. ENT appears to be normal. The patient's chest appears to show the trachea to be central with fairly good air entry present in both lung vargas without any rales, rhonchi, or bronchial breathing anteriorly, but posteriorly I could hear bilateral basal crackles heard in both the lung vargas. No rhonchi were audible. Central nervous system is within normal limits except for probably old left-sided hemiparesis. The patient is adequately built, but poorly nourished. HEART: PMI is not seen or felt. S1, S2 are well audible. Fourth heart sound is heard. Third heart sound is absent. Second heart sound physiologically split. ABDOMEN: Soft, benign, and negative. Liver, spleen not enlarged. No free fluid in the abdominal cavity. GENITOURINARY: Essentially looks normal, the CVA looks normal, and the patient was having cough starting today, so maybe she is starting to get some infection and that is why she was being sent. It is mentioned here that one should keep in mind that not to give erythromycin and Biaxin while the patient is on Tegretol and make crush all crushable meds if unable to swallow or refusal of medication and this was supposed to be an appropriate level of care for this patient. Continue above orders for 45 days unless otherwise specified. Regular pureed diet. Sugar-free deserts and juices in small portions. The patient's labs were ordered before in the form of a CBC, ferritin, hemoglobin A1c, CMP, TSH, T4 every 3 months. Lipids every 6 months, vitamin D yearly in August. Urinalysis yearly in May. Pneumococcal vaccine 0.5 mL IM every 5 years. Flu vaccine annually. For allergic reaction, give Benadryl ____ then send the patient to the ER for further treatment . CLINICAL IMPRESSION: The patient came to the hospital with weakness, congestion, and lethargy. It is possible that the patient may be dry, dehydrated, may be getting some cough also starting today and the patient has other conditions, which include: 1. The patient has seizure disorder. 2. Diabetes mellitus type 2. 3. Glaucoma. 4. Gastritis. 5. Colitis. 6. Hypertension. 7. Osteoarthritis. 8. Umbilical hernia. 9. Chronic obstructive pulmonary disease. 10. Paranoid schizophrenia. 11. Psychosis. 12. Anemia. 13. Cerebrovascular accident in the past. It is not Clarke's palsy. The patient had a CVA in the past. 14. Hydrocephalus, cardiovascular shunt because of hydrocephalus. 15. Dysphagia, status post respiratory failure, unspecified and pseudophakia. We will check the patient's labs, EKG, chest x-ray and give the patient a double antibiotic, vancomycin, Zosyn. JOB# [id number]
[2017-05-24 21:37] LABS: URINE MICROSCOPIC INDICATED? YES; URINE SOURCE CATH
[2017-05-24 21:42] LABS: URINE BILIRUBIN NEGATIVE (NEGATIVE); URINE BLOOD NEGATIVE (NEGATIVE); URINE GLUCOSE (UA) NEGATIVE (NEGATIVE); URINE KETONE NEGATIVE (NEGATIVE); URINE LEUKOCYTE ESTERASE LARGE (NEGATIVE); URINE NITRATE NEGATIVE (NEGATIVE); URINE PH 8.5 (4.6 - 8.0); URINE PROTEIN TRACE mg/dL (NEGATIVE); URINE UROBILINOGEN 0.2 E.U./dL (0.2 - 1.0)
[2017-05-24 21:45] LABS: URINE COLOR HAZY
[2017-05-24 21:46] LABS: URINE CLARITY CLOUDY (CLEAR); URINE RBC NONE SEEN /hpf (0-5)
[2017-05-24 21:48] LABS: URINE BACTERIA FEW /hpf (NONE SEEN); URINE EPITHELIAL CELLS MANY /lpf (FEW); URINE WBC 50-100 /hpf (0-5)
[2017-05-24] MEDS ORDERED: cefTRIAXone 1 GM in Sodium Chloride 0.9% 50 ML IV ONE (22:02)
[2017-05-24] MEDS ORDERED: guaiFENesin 200 MG/10 ML UDC PO PRN (23:30)
[2017-05-24] MEDS ORDERED: Fleet Enema 135 mL RC PRN (23:30)
[2017-05-24] MEDS ORDERED: Magnesium Hydroxide (MOM) 30 mL UDC PO PRN (23:30)
[2017-05-24] MEDS ORDERED: Ipratropium Neb 0.5 mg/2.5 mL UD IH PRN (23:33)
[2017-05-24] MEDS ORDERED: Albuterol Nebulizer 2.5mg/3mL HHN PRN (23:33)
[2017-05-24] MEDS ORDERED: D5-0.9%NS 1,000 ML IV SCH (23:45)
[2017-05-25 05:10] LABS: % EOSINOPHILS 5.7 % (0.0-5.0); % LYMPHOCYTES 31.2 % (20.0-50.0); % MONOCYTES 7.9 % (2.0-10.0); % NEUTROPHILS 54.2 % (40.0-80.0); BASOPHILE ABSOLUTE 0.1 Th/cumm (0-0.2); EOSINOPHILE ABSOLUTE 0.5 Th/cmm (0.1-0.4); HEMATOCRIT 25.4 % (41.0-60); HEMOGLOBIN 8.3 gm/dL (12-16); LYMPHOCYTE ABSOLUTE 2.5 Th/cmm (1.5-3.0); MEAN CELL VOLUME 84.8 fl (81-100); MEAN CORPUSCULAR HEMOGLOBIN 27.6 pg (27.0-31.0); MEAN CORPUSCULAR HGB CONC 32.5 pg (28.0-36.0); MEAN PLATELET VOLUME 6.6 fl; MONOCYTE ABSOLUTE 0.6 Th/cmm (0.3-1.0); NEUTROPHILE ABSOLUTE 4.4 Th/cmm (1.8-8.0); PLATELET COUNT 382 Th/cmm (150-400); WHITE BLOOD COUNT 8.1 Th/cmm (4.8-10.8)
[2017-05-25 05:30] LABS: ANION GAP 5.6 (7.0-16.0); BUN - UREA NITROGEN 24 mg/dL (7-25); CALCIUM SERUM 10.2 mg/dL (8.6-10.3); CARBON DIOXIDE 33.9 mEq/L (21.0-31.0); CHLORIDE 98 mEq/L (98-107); CREATININE - SERUM 0.8 mg/dL (0.6-1.2); GLUCOSE 96 mg/dL (70-105); MAGNESIUM 1.7 mg/dL (1.9-2.7); POTASSIUM SERUM 3.5 mEq/L (3.5-5.1); SODIUM SERUM 134 mEq/L (136-145)
--- NOTE | 2017-05-25 07:44 | ED Physician Chart ---
ED Chief Complaint/HPI - Patient Information Date Seen:: 05/24/17 Time Seen:: 19:39 History of Present Illness:: Assumed the care from Dr. Alcazar at 19:00. The patient was awaiting for lab results. Allergies:: Allergies Allergy/AdvReac Type Severity Reaction Status Date / Time No Known Allergies Allergy Verified 03/22/17 21:14 Vitals:: Vital Signs - 8 hr 05/25/17 05/25/17 05/25/17 01:40 04:15 07:02 Temp 98.2 F 98.2 F HR 88 81 80 RR 18 BP 168/69 164/71 165/67 O2 Sat % 18 95 95 Family Medical History - Family Member Mother History Unknown: Yes Living Status: Unknown Hx Family Cancer: No Hx Family Coronary Artery Disease: No Hx Family Congestive Heart Failure: No Hx Family Hypertension: Yes Hx Family Stroke: No Hx Family Diabetes: Yes Hx Family Seizures: No Hx Family COPD: Yes ED Labs/Radiology/EKG Results - Lab Results Results: Laboratory Tests 05/24/17 05/24/17 05/24/17 18:42 18:42 18:42 WBC 9.0 RBC 3.06 L Hgb 8.4 L Hct 26.2 L MCV 85.7 MCH 27.6 MCHC Differential 32.2 RDW 13.2 Plt Count 408 H MPV 6.2 Neutrophils % 53.7 Lymphocytes % 32.0 Monocytes % 7.2 Eosinophils % 6.0 H Basophils % 1.1 Sodium 130 L Potassium 4.0 Chloride 92 L Carbon Dioxide 35.2 H Anion Gap 6.8 L BUN 29 H Creatinine 0.9 Est GFR ( Amer) TNP Est GFR (Non-Af Amer) TNP BUN/Creatinine Ratio 32.2 Glucose 156 H Calcium 10.9 H Magnesium 1.8 L Total Bilirubin 0.4 AST 13 ALT 9 Alkaline Phosphatase 111 H Ammonia C-Reactive Protein B-Natriuretic Peptide Total Protein 6.6 Albumin 3.4 L Globulin 3.2 Albumin/Globulin Ratio 1.1 Urine Source Urine Color Urine Clarity Urine pH Ur Specific [place] Urine Protein Urine Glucose (UA) Urine Ketones Urine Blood Urine Nitrate Urine Bilirubin Urine Urobilinogen Ur Leukocyte Esterase Urine RBC Urine WBC Ur Epithelial Cells Urine Bacteria 05/24/17 05/24/17 05/25/17 18:42 20:55 04:30 WBC 8.1 RBC 3.00 L Hgb 8.3 L Hct 25.4 L MCV 84.8 MCH 27.6 MCHC Differential 32.5 RDW 13.0 Plt Count 382 MPV 6.6 Neutrophils % 54.2 Lymphocytes % 31.2 Monocytes % 7.9 Eosinophils % 5.7 H Basophils % 1.0 Sodium Potassium Chloride Carbon Dioxide Anion Gap BUN Creatinine Est GFR ( Amer) Est GFR (Non-Af Amer) BUN/Creatinine Ratio Glucose Calcium Magnesium Total Bilirubin AST ALT Alkaline Phosphatase Ammonia C-Reactive Protein 1.3 H B-Natriuretic Peptide Total Protein Albumin Globulin Albumin/Globulin Ratio Urine Source CATH Urine Color HAZY Urine Clarity CLOUDY H Urine pH 8.5 Ur Specific [place] 1.010 Urine Protein TRACE Urine Glucose (UA) NEGATIVE Urine Ketones NEGATIVE Urine Blood NEGATIVE Urine Nitrate NEGATIVE Urine Bilirubin NEGATIVE Urine Urobilinogen 0.2 Ur Leukocyte Esterase LARGE H Urine RBC NONE SEEN Urine WBC 50-100 H Ur Epithelial Cells MANY Urine Bacteria FEW 05/25/17 05/25/17 05/25/17 04:30 04:30 04:30 WBC RBC Hgb Hct MCV MCH MCHC Differential RDW Plt Count MPV Neutrophils % Lymphocytes % Monocytes % Eosinophils % Basophils % Sodium 134 L Potassium 3.5 Chloride 98 Carbon Dioxide 33.9 H Anion Gap 5.6 L BUN 24 Creatinine 0.8 Est GFR ( Amer) TNP Est GFR (Non-Af Amer) TNP BUN/Creatinine Ratio 30.0 Glucose 96 Calcium 10.2 Magnesium 1.7 L Total Bilirubin AST ALT Alkaline Phosphatase Ammonia 40 C-Reactive Protein B-Natriuretic Peptide 86.2 Total Protein Albumin Globulin Albumin/Globulin Ratio Urine Source Urine Color Urine Clarity Urine pH Ur Specific [place] Urine Protein Urine Glucose (UA) Urine Ketones Urine Blood Urine Nitrate Urine Bilirubin Urine Urobilinogen Ur Leukocyte Esterase Urine RBC Urine WBC Ur Epithelial Cells Urine Bacteria ED Assessment - Assessment General Assessment: UTI Dehydration Hyponatremia Assessment/Comments:: D/c Vancomycin and zosyn Rocephin NS 1L IV Admit to telemetry ED Septic Shock - . Is Septic Shock (SBP<90, OR Lactate>4 mmol\L) present?: No - <6hrs of presentation: Vital Signs: Vital Signs - 8 hr 05/25/17 05/25/17 05/25/17 01:40 04:15 07:02 Temp 98.2 F 98.2 F HR 88 81 80 RR 19 18 18 BP 168/69 164/71 165/67 O2 Sat % 18 95 95 ED Reassessment (Disposition) - Reassessment Reassessment Condition:: Improved - Patient Disposition Discharge/Transfer:: Acute Care w/in this hosp Admitting Medical Physician:: Wm Steward
[2017-05-25] MEDS ORDERED: Albuterol Nebulizer 2.5mg/3mL HHN ONE (07:56)
--- NOTE | 2017-05-25 08:30 | Diagnostic Imaging Report ---
CHEST X-RAY: AP view INDICATION: Pneumonia COMPARISON: 05/03/2017 FINDINGS: There is mild elevation of the right hemidiaphragm. Chronic interstitial lung changes are seen with no focal consolidation or effusions. Heart size is normal. Atherosclerosis is noted. Degenerative changes spine are noted with scoliosis. Postsurgical changes of the right upper quadrant are noted. IMPRESSION: Chronic interstitial lung changes with no focal consolidation or evidence of earnest CHF. Atherosclerotic vascular disease.
[2017-05-25] MEDS ORDERED: Albuterol Nebulizer 2.5mg/3mL HHN SCH (09:00)
[2017-05-25] MEDS: INSULIN ASPART, RECOMBINANT 100 UNITS/ML SUBQ SCH ×4 (10:03→22:26)
--- NOTE | 2017-05-25 14:06 | Internal Medicine Prog Note ---
Internal Medicine Subjective - Subjective Service Date: 05/25/17 ([facility] dictated [id number]) Internal Medicine Objective - Results Result Diagrams: 05/25/17 04:30 05/25/17 04:30 Recent Labs: Laboratory Last Values WBC 8.1 Th/cmm (4.8-10.8) 05/25/17 04:30 RBC 3.00 Mil/cmm (3.80-5.20) L 05/25/17 04:30 Hgb 8.3 gm/dL (12-16) L 05/25/17 04:30 Hct 25.4 % (41.0-60) L 05/25/17 04:30 MCV 84.8 fl (81-100) 05/25/17 04:30 MCH 27.6 pg (27.0-31.0) 05/25/17 04:30 MCHC Differential 32.5 pg (28.0-36.0) 05/25/17 04:30 RDW 13.0 % (11.5-20.0) 05/25/17 04:30 Plt Count 382 Th/cmm (150-400) 05/25/17 04:30 MPV 6.6 fl 05/25/17 04:30 Neutrophils % 54.2 % (40.0-80.0) 05/25/17 04:30 Lymphocytes % 31.2 % (20.0-50.0) 05/25/17 04:30 Monocytes % 7.9 % (2.0-10.0) 05/25/17 04:30 Eosinophils % 5.7 % (0.0-5.0) H 05/25/17 04:30 Basophils % 1.0 % (0.0-2.0) 05/25/17 04:30 Sodium 134 mEq/L (136-145) L 05/25/17 04:30 Potassium 3.5 mEq/L (3.5-5.1) 05/25/17 04:30 Chloride 98 mEq/L (98-107) 05/25/17 04:30 Carbon Dioxide 33.9 mEq/L (21.0-31.0) H 05/25/17 04:30 Anion Gap 5.6 (7.0-16.0) L 05/25/17 04:30 BUN 24 mg/dL (7-25) 05/25/17 04:30 Creatinine 0.8 mg/dL (0.6-1.2) 05/25/17 04:30 Est GFR ( Amer) TNP 05/25/17 04:30 Est GFR (Non-Af Amer) TNP 05/25/17 04:30 BUN/Creatinine Ratio 30.0 05/25/17 04:30 Glucose 96 mg/dL (70-105) 05/25/17 04:30 POC Glucose 194 MG/DL (70 - 105) H 05/25/17 10:02 Calcium 10.2 mg/dL (8.6-10.3) 05/25/17 04:30 Magnesium 1.7 mg/dL (1.9-2.7) L 05/25/17 04:30 Total Bilirubin 0.4 mg/dL (0.3-1.0) 05/24/17 18:42 AST 13 U/L (13-39) 05/24/17 18:42 ALT 9 U/L (7-52) 05/24/17 18:42 Alkaline Phosphatase 111 U/L (34-104) H 05/24/17 18:42 Ammonia 40 umol/L (16-53) 05/25/17 04:30 C-Reactive Protein 1.3 mg/dL (0.0-0.9) H 05/24/17 18:42 B-Natriuretic Peptide 86.2 pg/mL (5.0-100.0) 05/25/17 04:30 Total Protein 6.6 gm/dL (6.0-8.3) 05/24/17 18:42 Albumin 3.4 gm/dL (3.7-5.3) L 05/24/17 18:42 Globulin 3.2 gm/dL 05/24/17 18:42 Albumin/Globulin Ratio 1.1 (1.0-1.8) 05/24/17 18:42 Urine Source CATH 05/24/17 20:55 Urine Color HAZY 05/24/17 20:55 Urine Clarity CLOUDY (CLEAR) H 05/24/17 20:55 Urine pH 8.5 (4.6 - 8.0) 05/24/17 20:55 Ur Specific [place] 1.010 (1.005-1.030) 05/24/17 20:55 Urine Protein TRACE mg/dL (NEGATIVE) 05/24/17 20:55 Urine Glucose (UA) NEGATIVE mg/dL (NEGATIVE) 05/24/17 20:55 Urine Ketones NEGATIVE mg/dL (NEGATIVE) 05/24/17 20:55 Urine Blood NEGATIVE (NEGATIVE) 05/24/17 20:55 Urine Nitrate NEGATIVE (NEGATIVE) 05/24/17 20:55 Urine Bilirubin NEGATIVE (NEGATIVE) 05/24/17 20:55 Urine Urobilinogen 0.2 E.U./dL (0.2 - 1.0) 05/24/17 20:55 Ur Leukocyte Esterase LARGE (NEGATIVE) H 05/24/17 20:55 Urine RBC NONE SEEN /hpf (0-5) 05/24/17 20:55 Urine WBC 50-100 /hpf (0-5) H 05/24/17 20:55 Ur Epithelial Cells MANY /lpf (FEW) 05/24/17 20:55 Urine Bacteria FEW /hpf (NONE SEEN) 05/24/17 20:55 - Physical Exam Vitals and I&O: Vital Signs Temp 97.4 F 05/25/17 13:00 Pulse 80 05/25/17 13:00 Resp 18 05/25/17 13:00 BP 149/68 05/25/17 13:00 Pulse Ox 96 05/25/17 13:00 Intake & Output 05/24/17 05/25/17 05/25/17 18:59 06:59 18:59 Intake Total 1049 300 Balance 1049 300 Weight (lbs) 140 lb Intake: Intake, IV Amount 1049 Oral 300 Other: Stool Characteristics Soft Brown Active Medications: Current Medications Acetaminophen (Tylenol) 650 mg PO Q4H PRN PRN Reason: Pain Or Fever above 99.9 Stop: 07/23/17 23:29 Albuterol Sulfate (Albuterol 2.5mg/3ml Neb Ud) 2.5 mg HHN Q2HRT PRN PRN Reason: Shortness of Breath or Wheeze Stop: 07/23/17 23:32 Albuterol Sulfate (Albuterol 2.5mg/3ml Neb Ud) 2.5 mg HHN BIDRT ROSS Stop: 07/24/17 08:59 Ascorbic Acid (Vitamin C) 500 mg PO BID ROSS Stop: 07/24/17 16:59 Bisacodyl (Dulcolax 10 Mg Supp) 10 mg RC DAILY PRN PRN Reason: Constipation Stop: 07/23/17 23:29 Cyanocobalamin (Vitamin B12) 1,000 mcg PO DAILY ROSS Stop: 07/24/17 11:59 Famotidine (Pepcid) 20 mg PO BID ROSS Stop: 07/24/17 16:59 Ferrous Sulfate (Iron) 325 mg PO BID ROSS Stop: 07/24/17 16:59 Fish Oil (Kempner 3) 1,000 mg PO BID ROSS Stop: 07/24/17 16:59 Guaifenesin (Robitussin) 100 mg PO Q4H PRN PRN Reason: Congestion Stop: 07/23/17 23:29 Hydralazine HCl (Apresoline) 100 mg PO BID ROSS Stop: 07/24/17 08:59 Cefepime HCl 1 gm/ Dextrose 50 mls @ 100 mls/hr IV Q12H ROSS Stop: 07/23/17 23:44 Last Admin: 05/25/17 06:45 Dose: 100 mls/hr Magnesium Sulfate (Magnesium Sulfate Premix) 2 gm in 50 mls @ 25 mls/hr IV X1 ONE Stop: 05/25/17 15:14 Dextrose/Sodium Chloride (D5-0.9%Ns) 1,000 mls @ 70 mls/hr IV .[id number] [facility] Stop: 07/24/17 13:13 Insulin Aspart (Novolog) 0 units SUBQ ACHS ROSS PRN Reason: Protocol Stop: 07/24/17 07:29 Last Admin: 05/25/17 10:03 Dose: Not Given Ipratropium [place] (Atrovent Neb 0.5mg/2.5ml) 0.5 mg IH Q2HRT PRN PRN Reason: Shortness of Breath or Wheeze Stop: 07/23/17 23:32 Lisinopril (Zestril) [address] [facility] Stop: 07/24/17 08:59 Magnesium Hydroxide (Milk Of Magnesia) 30 ml PO DAILY PRN PRN Reason: Constipation Stop: 07/23/17 23:29 Metformin HCl (Glucophage) [address] [facility] Stop: 07/24/17 08:59 Sodium Phosphate (Fleet Enema) 135 ml RC Q72H PRN PRN Reason: IF DULCOLAX INEFFECTIVE Stop: 07/23/17 23:29 Vitamin D (Vitamin D) 800 iu PO DAILY ROSS Stop: 07/24/17 08:59 - Procedures Procedures: Procedures Procedure Code Date ASPIR CURETT UTERUS NEC 69.59 10/29/11 BIOPSY OF CERVIX 05703 09/05/94 CERVICAL LES DESTRUC NEC 67.39 09/05/94 CONTINUOUS INVASIVE MECHANICAL VENTILATION <96 CONSEC HRS 96.71 09/01/14 D & C NEC 69.09 09/05/94 DILATION AND CURETTAGE 33014 10/29/11 EMERGENCY DEPT VISIT 83862 05/28/11 GENITAL SURGERY PROCEDURE 39081 09/05/94 HYMENORRHAPHY 70.76 09/05/94 HYMENOTOMY 70.11 09/05/94 INCISION OF HYMEN 14731 09/05/94 LAPAROSCOPIC CHOLECYSTECTOMY 51.23 11/29/06 LAPAROSCOPIC CHOLECYSTECTOMY 16799 11/29/06 OTHER OPEN UMBILICAL HERNIORRHAPHY 53.49 11/29/06 RPR UMBIL JIHAN BLOCK > 5 YR 91305 11/29/06
[2017-05-25] MEDS: Multivitamin w/ Minerals Tab PO SCH (14:32)
[2017-05-25] MEDS ORDERED: Mag Sulfate 2gm/50mL Premix 2 GM/50 ML BAG IV ONE (16:00)
[2017-05-25] MEDS: Ferrous Sulfate 325 MG TAB PO SCH (16:19)
[2017-05-25] MEDS: Fish Oil 1,000 MG SGL PO SCH (16:20)
[2017-05-25 16:59] VITALS: BP 149/68
--- NOTE | 2017-05-25 17:23 | History & Physical ---
ADMIT DATE: 05/25/2017 CHIEF COMPLAINT: Increase of lethargy and altered mental status. HISTORY OF PRESENT ILLNESS: This is a 77-year-old female who is a resident of [facility] who is well known to me from previous admission. Per nursing staff at [facility] the patient was found to have altered mental status. For further management the patient is now admitted to the med-surg unit. PAST MEDICAL HISTORY: Hypertension, diabetes, asthma, COPD, history of CVA, TIA, seizure, dementia, gastritis, colitis, umbilical hernia, anemia, hydrocephalus. SOCIAL HISTORY: The patient is a [facility] resident according to her nursing care. REVIEW OF SYSTEMS: Unable to obtain due to patient's mental status. PHYSICAL EXAMINATION: GENERAL: This is an elderly female, awake, alert, in no apparent distress. VITAL SIGNS: Temperature 97.4, heart rate 80, blood pressure 149/60, respiration 18, O2 96%. HEENT: Head; normocephalic, atraumatic. NECK: Supple. No mass. LUNGS: Few rhonchi. CARDIOVASCULAR: Regular rate and rhythm. ABDOMEN: Soft, nontender. LABORATORY DATA: WBC 8.1, H and H 8.3, 25.4, platelet of 382. Sodium 134, potassium 3.5, chloride 98, BUN 24, creatinine 0.8. The patient had a urinalysis done, positive for UTI. The patient had a chest x-ray done. Impression is chronic interstitial lung changes with no focal consolidation or evidence of earnest CHF, atherosclerotic vascular disease. ASSESSMENT: Acute dehydration, acute urinary tract infection, hypertension, diabetes, asthma, chronic obstructive pulmonary disease, history of CVA, seizure, dementia. PLAN: The patient to be admitted to the med/surg unit. Keep patient on empiric IV antibiotics, IV fluids for hydration, monitor the patient's electrolyte levels. We will continue to monitor this patient. [facility]# [id number]
[2017-05-25 17:55] LABS: A1C % 6.2 % (4.0-6.0)
[2017-05-25] MEDS: Albuterol Nebulizer 2.5mg/3mL HHN SCH (19:55)
[2017-05-26] MEDS: INSULIN ASPART, RECOMBINANT 100 UNITS/ML SUBQ SCH ×4 (06:52→22:57)
[2017-05-26] MEDS: Albuterol Nebulizer 2.5mg/3mL HHN SCH ×2 (07:04→18:32)
[2017-05-26 07:21] LABS: % BASOPHILS 0.7 % (0.0-2.0); % EOSINOPHILS 6.3 % (0.0-5.0); % LYMPHOCYTES 32.5 % (20.0-50.0); % MONOCYTES 5.8 % (2.0-10.0); % NEUTROPHILS 54.7 % (40.0-80.0); EOSINOPHILE ABSOLUTE 0.4 Th/cmm (0.1-0.4); HEMATOCRIT 25.7 % (41.0-60); HEMOGLOBIN 8.3 gm/dL (12-16); LYMPHOCYTE ABSOLUTE 2.1 Th/cmm (1.5-3.0); MEAN CORPUSCULAR HEMOGLOBIN 27.6 pg (27.0-31.0); MEAN CORPUSCULAR HGB CONC 32.5 pg (28.0-36.0); MEAN PLATELET VOLUME 6.6 fl; MONOCYTE ABSOLUTE 0.4 Th/cmm (0.3-1.0); NEUTROPHILE ABSOLUTE 3.7 Th/cmm (1.8-8.0); PLATELET COUNT 376 Th/cmm (150-400); RED BLOOD COUNT 3.02 Mil/cmm (3.80-5.20); RED CELL DISTRIBUTION WIDTH 13.3 % (11.5-20.0); WHITE BLOOD COUNT 6.6 Th/cmm (4.8-10.8)
[2017-05-26 07:38] LABS: ANION GAP 7.9 (7.0-16.0); BUN - UREA NITROGEN 16 mg/dL (7-25); CALCIUM SERUM 9.5 mg/dL (8.6-10.3); CARBON DIOXIDE 29.8 mEq/L (21.0-31.0); CHLORIDE 100 mEq/L (98-107); CREATININE - SERUM 0.7 mg/dL (0.6-1.2); GLUCOSE 117 mg/dL (70-105); MAGNESIUM 2.1 mg/dL (1.9-2.7); POTASSIUM SERUM 3.7 mEq/L (3.5-5.1); SODIUM SERUM 134 mEq/L (136-145)
[2017-05-26] MEDS: Multivitamin w/ Minerals Tab PO SCH (09:52)
[2017-05-26] MEDS: Fish Oil 1,000 MG SGL PO SCH ×2 (09:52→17:35)
[2017-05-26] MEDS: Ferrous Sulfate 325 MG TAB PO SCH ×2 (09:53→17:56)
[2017-05-26] MEDS: D5-0.9%NS 1,000 ML IV SCH (10:27)
[2017-05-26 15:14] LABS: FOLIC ACID >20.0 ng/mL (>3.0)
--- NOTE | 2017-05-26 16:25 | Internal Medicine Prog Note ---
Internal Medicine Subjective - Subjective Service Date: 05/26/17 Patient seen and examined:: with staff Patient is:: awake, non-verbal, stares blankly Per staff patient has:: tolerating meds Internal Medicine Objective - Results Result Diagrams: 05/26/17 06:57 05/26/17 06:57 Recent Labs: Laboratory Last Values WBC 6.6 Th/cmm (4.8-10.8) 05/26/17 06:57 RBC 3.02 Mil/cmm (3.80-5.20) L 05/26/17 06:57 Hgb 8.3 gm/dL (12-16) L 05/26/17 06:57 Hct 25.7 % (41.0-60) L 05/26/17 06:57 MCV 85.0 fl (81-100) 05/26/17 06:57 MCH 27.6 pg (27.0-31.0) 05/26/17 06:57 MCHC Differential 32.5 pg (28.0-36.0) 05/26/17 06:57 RDW 13.3 % (11.5-20.0) 05/26/17 06:57 Plt Count 376 Th/cmm (150-400) 05/26/17 06:57 MPV 6.6 fl 05/26/17 06:57 Neutrophils % 54.7 % (40.0-80.0) 05/26/17 06:57 Lymphocytes % 32.5 % (20.0-50.0) 05/26/17 06:57 Monocytes % 5.8 % (2.0-10.0) 05/26/17 06:57 Eosinophils % 6.3 % (0.0-5.0) H 05/26/17 06:57 Basophils % 0.7 % (0.0-2.0) 05/26/17 06:57 Sodium 134 mEq/L (136-145) L 05/26/17 06:57 Potassium 3.7 mEq/L (3.5-5.1) 05/26/17 06:57 Chloride 100 mEq/L (98-107) 05/26/17 06:57 Carbon Dioxide 29.8 mEq/L (21.0-31.0) 05/26/17 06:57 Anion Gap 7.9 (7.0-16.0) 05/26/17 06:57 BUN 16 mg/dL (7-25) 05/26/17 06:57 Creatinine 0.7 mg/dL (0.6-1.2) 05/26/17 06:57 Est GFR ( Amer) TNP 05/26/17 06:57 Est GFR (Non-Af Amer) TNP 05/26/17 06:57 BUN/Creatinine Ratio 22.9 05/26/17 06:57 Glucose 117 mg/dL (70-105) H 05/26/17 06:57 POC Glucose 237 MG/DL (70 - 105) H 05/26/17 11:49 Hemoglobin A1c % 6.2 % (4.0-6.0) H 05/25/17 04:30 Calcium 9.5 mg/dL (8.6-10.3) 05/26/17 06:57 Magnesium 2.1 mg/dL (1.9-2.7) 05/26/17 06:57 Total Bilirubin 0.4 mg/dL (0.3-1.0) 05/24/17 18:42 AST 13 U/L (13-39) 05/24/17 18:42 ALT 9 U/L (7-52) 05/24/17 18:42 Alkaline Phosphatase 111 U/L (34-104) H 05/24/17 18:42 Ammonia 40 umol/L (16-53) 05/25/17 04:30 C-Reactive Protein 1.3 mg/dL (0.0-0.9) H 05/24/17 18:42 B-Natriuretic Peptide 86.2 pg/mL (5.0-100.0) 05/25/17 04:30 Total Protein 6.6 gm/dL (6.0-8.3) 05/24/17 18:42 Albumin 3.4 gm/dL (3.7-5.3) L 05/24/17 18:42 Globulin 3.2 gm/dL 05/24/17 18:42 Albumin/Globulin Ratio 1.1 (1.0-1.8) 05/24/17 18:42 Vitamin B12 >1999 pg/mL (232-1245) H 05/25/17 04:30 Folic Acid >20.0 ng/mL (>3.0) 05/25/17 04:30 Urine Source CATH 05/24/17 20:55 Urine Color HAZY 05/24/17 20:55 Urine Clarity CLOUDY (CLEAR) H 05/24/17 20:55 Urine pH 8.5 (4.6 - 8.0) 05/24/17 20:55 Ur Specific [place] 1.010 (1.005-1.030) 05/24/17 20:55 Urine Protein TRACE mg/dL (NEGATIVE) 05/24/17 20:55 Urine Glucose (UA) NEGATIVE mg/dL (NEGATIVE) 05/24/17 20:55 Urine Ketones NEGATIVE mg/dL (NEGATIVE) 05/24/17 20:55 Urine Blood NEGATIVE (NEGATIVE) 05/24/17 20:55 Urine Nitrate NEGATIVE (NEGATIVE) 05/24/17 20:55 Urine Bilirubin NEGATIVE (NEGATIVE) 05/24/17 20:55 Urine Urobilinogen 0.2 E.U./dL (0.2 - 1.0) 05/24/17 20:55 Ur Leukocyte Esterase LARGE (NEGATIVE) H 05/24/17 20:55 Urine RBC NONE SEEN /hpf (0-5) 05/24/17 20:55 Urine WBC 50-100 /hpf (0-5) H 05/24/17 20:55 Ur Epithelial Cells MANY /lpf (FEW) 05/24/17 20:55 Urine Bacteria FEW /hpf (NONE SEEN) 05/24/17 20:55 - Physical Exam Vitals and I&O: Vital Signs Temp 97.6 F 05/26/17 15:47 Pulse 100 05/26/17 15:47 Resp 18 05/26/17 15:47 BP 159/68 05/26/17 15:47 Pulse Ox 95 05/26/17 15:47 Intake & Output 05/25/17 05/26/17 05/26/17 18:59 06:59 18:59 Intake Total 350 1300 Balance 350 1300 Weight (lbs) 110 lb 3.2 oz 110 lb Intake: Intake, IV Amount 50 100 Cefepime 1 gm In Dextrose 50 100 5% 50 ml @ 100 mls/hr IV Q12H [facility] Rx#:[id number] Oral 300 1200 Other: # Voids 1 # Bowel Movements 1 Stool Characteristics Soft Soft Brown Brown Active Medications: Current Medications Acetaminophen (Tylenol) 650 mg PO Q4H PRN PRN Reason: Pain Or Fever above 99.9 Stop: 07/23/17 23:29 Albuterol Sulfate (Albuterol 2.5mg/3ml Neb Ud) 2.5 mg HHN Q2HRT PRN PRN Reason: Shortness of Breath or Wheeze Stop: 07/23/17 23:32 Albuterol Sulfate (Albuterol 2.5mg/3ml Neb Ud) 2.5 mg HHN BIDRT ROSS Stop: 07/24/17 08:59 Last Admin: 05/26/17 07:04 Dose: 2.5 mg Ascorbic Acid (Vitamin C) 500 mg PO BID [facility] Stop: 07/24/17 16:59 Last Admin: 05/26/17 09:52 Dose: 500 mg Bisacodyl (Dulcolax 10 Mg Supp) 10 mg RC DAILY PRN PRN Reason: Constipation Stop: 07/23/17 23:29 Cyanocobalamin (Vitamin B12) 1,000 mcg PO DAILY [facility] Stop: 07/24/17 11:59 Last Admin: 05/26/17 09:53 Dose: 1,000 mcg Famotidine (Pepcid) 20 mg PO BID [facility] Stop: 07/24/17 16:59 Last Admin: 05/26/17 09:53 Dose: 20 mg Ferrous Sulfate (Iron) 325 mg PO BID [facility] Stop: 07/24/17 16:59 Last Admin: 05/26/17 09:53 Dose: 325 mg Fish Oil ([place] 3) 1,000 mg PO BID [facility] Stop: 07/24/17 16:59 Last Admin: 05/26/17 09:52 Dose: 1,000 mg Guaifenesin (Robitussin) 100 mg PO Q4H PRN PRN Reason: Congestion Stop: 07/23/17 23:29 Heparin Sodium (Porcine) (Heparin) 5,000 units SUBQ Q12HR [facility] Stop: 07/24/17 20:59 Last Admin: 05/26/17 10:24 Dose: Not Given Hydralazine HCl (Apresoline) 100 mg PO BID [facility] Stop: 07/24/17 08:59 Last Admin: 05/26/17 10:26 Dose: 100 mg Cefepime HCl 1 gm/ Dextrose 50 mls @ 100 mls/hr IV Q12H [facility] Stop: 07/23/17 23:44 Last Admin: 05/26/17 13:57 Dose: 100 mls/hr Dextrose/Sodium Chloride (D5-0.9%Ns) 1,000 mls @ 70 mls/hr IV .[id number] [facility] Stop: 07/24/17 13:13 Last Admin: 05/26/17 10:27 Dose: 70 mls/hr Insulin Aspart (Novolog) 0 units SUBQ ACHS ROSS PRN Reason: Protocol Stop: 07/24/17 07:29 Last Admin: 05/26/17 12:44 Dose: 2 unit Ipratropium [place] (Atrovent Neb 0.5mg/2.5ml) 0.5 mg IH Q2HRT PRN PRN Reason: Shortness of Breath or Wheeze Stop: 07/23/17 23:32 Lisinopril (Zestril) 20 mg PO BID [facility] Stop: 07/24/17 08:59 Last Admin: 05/26/17 09:53 Dose: 20 mg Magnesium Hydroxide (Milk Of Magnesia) 30 ml PO DAILY PRN PRN Reason: Constipation Stop: 07/23/17 23:29 Metformin HCl (Glucophage) 500 mg PO DAILY [facility] Stop: 07/24/17 08:59 Last Admin: 05/26/17 09:53 Dose: 500 mg Sodium Phosphate (Fleet Enema) 135 ml RC Q72H PRN PRN Reason: IF DULCOLAX INEFFECTIVE Stop: 07/23/17 23:29 Vitamin D (Vitamin D) 800 iu PO DAILY [facility] Stop: 07/24/17 08:59 Last Admin: 05/26/17 09:52 Dose: 800 iu General: weak, alert HEENT: NC/AT, PERRLA Neck: Supple Lungs: CTAB Cardiovascular: RRR, Normal S1, Normal S2, without murmur Abdomen: soft, non-tender, non-distended Neurological: unable to follow command - Procedures Procedures: Procedures Procedure Code Date ASPIR CURETT UTERUS NEC 69.59 10/29/11 BIOPSY OF CERVIX 89263 09/05/94 CERVICAL LES DESTRUC NEC 67.39 09/05/94 CONTINUOUS INVASIVE MECHANICAL VENTILATION <96 CONSEC HRS 96.71 09/01/14 D & C NEC 69.09 09/05/94 DILATION AND CURETTAGE 33002 10/29/11 EMERGENCY DEPT VISIT 48860 05/28/11 GENITAL SURGERY PROCEDURE 80588 09/05/94 HYMENORRHAPHY 70.76 09/05/94 HYMENOTOMY 70.11 09/05/94 INCISION OF HYMEN 82852 09/05/94 LAPAROSCOPIC CHOLECYSTECTOMY 51.23 11/29/06 LAPAROSCOPIC CHOLECYSTECTOMY 06500 11/29/06 OTHER OPEN UMBILICAL HERNIORRHAPHY 53.49 11/29/06 RPR UMBIL JIHAN BLOCK > 5 YR 34694 11/29/06 Internal Medicine Assmt/Plan - Assessment Assessment: acute dehydration acute uti htn dm2 asthma gastritis anemia - Plan Plan: continue ivf for hydration follow up labs in am continue current orders Nutritional Asmnt/Malnutr-PDOC - Dietary Evaluation Malnutrition Findings (Please click <Entered> for more info): Nutritional Asmnt/Malnutrition Start: 05/26/17 14: 54 Text: Status: Complete Freq: Document 05/26/17 14:54 [id number] (Rec: 05/26/17 15:10 [facility] Nutritional Asmnt/Malnutrition Patient General Information Nutritional Screening High Risk Consult Diagnosis dehydration, UTI Pertinent Medical Hx/Surgical Hx HTN, DM, asthma/COPD, CVA, TIA , seizure, dementia, gastritis , colitis, umbilical hernia, anemia, hydrocephalus Subjective Information Consult received for BS 194 at admitting. Pt seen sleeping at time of visit. Nurse reported pt ate well, consumed about 50% of lunch. Per EMR, pt usually skipped breakfast, ate 50-75% of lunch and dinner . Current Diet Order/ Nutrition Support Pureed KYLAH, NCS, CCHO Pertinent Medications vit C, vit B12, D5-0.9ns, iron , omega 3, novolog, glucophage , vit D Pertinent Labs 05/26 Na 134, Glucose 117, POC 125-237 05/25 Glucose 96, A1c 6.2, POC 158-194 05/24 Glucose 156 Nutritional Hx/Data Height 4 ft 10 in Height (Calculated Centimeters) 147.3 Current Weight (lbs) 110 lb Weight (Calculated Kilograms) 49.9 Weight (Calculated Grams) 96173.2 [place] Body Weight 96 Body Mass Index (BMI) 22.9 Weight Status Approriate GI Symptoms GI Symptoms None Last BM 05/25 Difficult in: None Skin Integrity/Comment: intact, reddened Current %PO Fair (50-74%) Estimated Nutritional Goals BEE in Kcals: Using Current wt Calories/Kcals/Kg 25-30 Kcals Calculated 1454-2268 Protein: Using Current wt Protein g/k-1.2 Protein Calculated 50-60 Fluid: ml 1250-1500ml (1ml/kcal) Nutritional Problem 1. Problem Problem altered nutrition related lab values Etiology hx of DM Signs/Symptoms: Glucose 96-156, POC 125-237, A1c 6.2 Malnutrition Alert Protein-Calorie Malnutrition N/A Is there a minimum of two criteria No selected? Query Text:Check all the applicable criteria. A minimum of two criteria are recommended for diagnosis of either severe or non-severe malnutrition. Intervention/Recommendation Comments 1. Continue with KYLAH, CCHO diet as ordered. 2. Monitor PO intake, wt, labs and skin integrity 3. F/U as moderate risk in 3-5 days, 05/29-05/31 Expected Outcomes/Goals Expected Outcomes/Goals 1. PO intake to meet at least 75% of nutritional needs. 2. Wt stability, skin to remain intact, labs to approach WNL.
[2017-05-27] MEDS: D5-0.9%NS 1,000 ML IV SCH ×2 (02:00→22:37)
[2017-05-27] MEDS: INSULIN ASPART, RECOMBINANT 100 UNITS/ML SUBQ SCH ×5 (07:12→22:31)
[2017-05-27] MEDS: Albuterol Nebulizer 2.5mg/3mL HHN SCH ×2 (07:24→19:46)
[2017-05-27 08:08] LABS: ANION GAP 6.5 (7.0-16.0); BUN - UREA NITROGEN 14 mg/dL (7-25); CALCIUM SERUM 9.4 mg/dL (8.6-10.3); CARBON DIOXIDE 26.8 mEq/L (21.0-31.0); CHLORIDE 103 mEq/L (98-107); CREATININE - SERUM 0.6 mg/dL (0.6-1.2); GLUCOSE 100 mg/dL (70-105); POTASSIUM SERUM 3.3 mEq/L (3.5-5.1); SODIUM SERUM 133 mEq/L (136-145)
[2017-05-27 08:09] LABS: % BASOPHILS 0.8 % (0.0-2.0); % EOSINOPHILS 9.3 % (0.0-5.0); % LYMPHOCYTES 34.7 % (20.0-50.0); % MONOCYTES 7.5 % (2.0-10.0); % NEUTROPHILS 47.7 % (40.0-80.0); BASOPHILE ABSOLUTE 0.1 Th/cumm (0-0.2); EOSINOPHILE ABSOLUTE 0.6 Th/cmm (0.1-0.4); HEMATOCRIT 24.7 % (41.0-60); HEMOGLOBIN 8.1 gm/dL (12-16); LYMPHOCYTE ABSOLUTE 2.3 Th/cmm (1.5-3.0); MEAN CELL VOLUME 84.8 fl (81-100); MEAN CORPUSCULAR HEMOGLOBIN 27.7 pg (27.0-31.0); MEAN CORPUSCULAR HGB CONC 32.7 pg (28.0-36.0); MEAN PLATELET VOLUME 6.9 fl; MONOCYTE ABSOLUTE 0.5 Th/cmm (0.3-1.0); NEUTROPHILE ABSOLUTE 3.1 Th/cmm (1.8-8.0); PLATELET COUNT 353 Th/cmm (150-400); RED BLOOD COUNT 2.92 Mil/cmm (3.80-5.20); WHITE BLOOD COUNT 6.6 Th/cmm (4.8-10.8)
[2017-05-27] MEDS: Ferrous Sulfate 325 MG TAB PO SCH ×2 (09:29→17:31)
[2017-05-27] MEDS: Multivitamin w/ Minerals Tab PO SCH (09:31)
[2017-05-27] MEDS: Fish Oil 1,000 MG SGL PO SCH ×2 (09:31→17:30)
[2017-05-27] MEDS ORDERED: Potassium Chloride 20 mEq ER Tab PO ONE (09:58)
--- NOTE | 2017-05-27 09:58 | Internal Medicine Prog Note ---
Internal Medicine Subjective - Subjective Service Date: 05/27/17 Patient is:: awake, non-verbal, stares blankly Per staff patient has:: tolerating meds Internal Medicine Objective - Results Result Diagrams: 05/27/17 07:23 05/27/17 07:23 Recent Labs: Laboratory Last Values WBC 6.6 Th/cmm (4.8-10.8) 05/27/17 07:23 RBC 2.92 Mil/cmm (3.80-5.20) L 05/27/17 07:23 Hgb 8.1 gm/dL (12-16) L 05/27/17 07:23 Hct 24.7 % (41.0-60) L 05/27/17 07:23 MCV 84.8 fl (81-100) 05/27/17 07:23 MCH 27.7 pg (27.0-31.0) 05/27/17 07:23 MCHC Differential 32.7 pg (28.0-36.0) 05/27/17 07:23 RDW 14.0 % (11.5-20.0) 05/27/17 07:23 Plt Count 353 Th/cmm (150-400) 05/27/17 07:23 MPV 6.9 fl 05/27/17 07:23 Neutrophils % 47.7 % (40.0-80.0) 05/27/17 07:23 Lymphocytes % 34.7 % (20.0-50.0) 05/27/17 07:23 Monocytes % 7.5 % (2.0-10.0) 05/27/17 07:23 Eosinophils % 9.3 % (0.0-5.0) H 05/27/17 07:23 Basophils % 0.8 % (0.0-2.0) 05/27/17 07:23 Sodium 133 mEq/L (136-145) L 05/27/17 07:23 Potassium 3.3 mEq/L (3.5-5.1) L 05/27/17 07:23 Chloride 103 mEq/L (98-107) 05/27/17 07:23 Carbon Dioxide 26.8 mEq/L (21.0-31.0) 05/27/17 07:23 Anion Gap 6.5 (7.0-16.0) L 05/27/17 07:23 BUN 14 mg/dL (7-25) 05/27/17 07:23 Creatinine 0.6 mg/dL (0.6-1.2) 05/27/17 07:23 Est GFR ( Amer) TNP 05/27/17 07:23 Est GFR (Non-Af Amer) TNP 05/27/17 07:23 BUN/Creatinine Ratio 23.3 05/27/17 07:23 Glucose 100 mg/dL (70-105) 05/27/17 07:23 POC Glucose 107 MG/DL (70 - 105) H 05/27/17 07:09 Hemoglobin A1c % 6.2 % (4.0-6.0) H 05/25/17 04:30 Calcium 9.4 mg/dL (8.6-10.3) 05/27/17 07:23 Magnesium 2.1 mg/dL (1.9-2.7) 05/26/17 06:57 Total Bilirubin 0.4 mg/dL (0.3-1.0) 05/24/17 18:42 AST 13 U/L (13-39) 05/24/17 18:42 ALT 9 U/L (7-52) 05/24/17 18:42 Alkaline Phosphatase 111 U/L (34-104) H 05/24/17 18:42 Ammonia 40 umol/L (16-53) 05/25/17 04:30 C-Reactive Protein 1.3 mg/dL (0.0-0.9) H 05/24/17 18:42 B-Natriuretic Peptide 86.2 pg/mL (5.0-100.0) 05/25/17 04:30 Total Protein 6.6 gm/dL (6.0-8.3) 05/24/17 18:42 Albumin 3.4 gm/dL (3.7-5.3) L 05/24/17 18:42 Globulin 3.2 gm/dL 05/24/17 18:42 Albumin/Globulin Ratio 1.1 (1.0-1.8) 05/24/17 18:42 Vitamin B12 >1999 pg/mL (232-1245) H 05/25/17 04:30 Folic Acid >20.0 ng/mL (>3.0) 05/25/17 04:30 Urine Source CATH 05/24/17 20:55 Urine Color HAZY 05/24/17 20:55 Urine Clarity CLOUDY (CLEAR) H 05/24/17 20:55 Urine pH 8.5 (4.6 - 8.0) 05/24/17 20:55 Ur Specific [place] 1.010 (1.005-1.030) 05/24/17 20:55 Urine Protein TRACE mg/dL (NEGATIVE) 05/24/17 20:55 Urine Glucose (UA) NEGATIVE mg/dL (NEGATIVE) 05/24/17 20:55 Urine Ketones NEGATIVE mg/dL (NEGATIVE) 05/24/17 20:55 Urine Blood NEGATIVE (NEGATIVE) 05/24/17 20:55 Urine Nitrate NEGATIVE (NEGATIVE) 05/24/17 20:55 Urine Bilirubin NEGATIVE (NEGATIVE) 05/24/17 20:55 Urine Urobilinogen 0.2 E.U./dL (0.2 - 1.0) 05/24/17 20:55 Ur Leukocyte Esterase LARGE (NEGATIVE) H 05/24/17 20:55 Urine RBC NONE SEEN /hpf (0-5) 05/24/17 20:55 Urine WBC 50-100 /hpf (0-5) H 05/24/17 20:55 Ur Epithelial Cells MANY /lpf (FEW) 05/24/17 20:55 Urine Bacteria FEW /hpf (NONE SEEN) 05/24/17 20:55 - Physical Exam Vitals and I&O: Vital Signs Temp 98.7 F 05/27/17 04:00 Pulse 83 05/27/17 09:37 Resp 18 05/27/17 08:00 BP 180/79 05/27/17 09:37 Pulse Ox 96 05/27/17 07:25 Intake & Output 05/26/17 05/27/17 05/27/17 18:59 06:59 18:59 Intake Total 850 1170 Output Total 1100 1770 Balance -250 -600 Weight (lbs) 110 lb 110 lb Intake: Intake, IV Amount 50 1050 Cefepime 1 gm In Dextrose 50 50 5% 50 ml @ 100 mls/hr IV Q12H [facility] Rx#:[id number] D5-0.9%Ns 1,000 ml @ 70 1000 mls/hr IV .[id number] [facility] Rx #:[id number] Oral 800 120 Output: Urine 1100 1770 Other: # Bowel Movements 1 112 Stool Characteristics Soft Black Active Medications: Current Medications Acetaminophen (Tylenol) 650 mg PO Q4H PRN PRN Reason: Pain Or Fever above 99.9 Stop: 07/23/17 23:29 Albuterol Sulfate (Albuterol 2.5mg/3ml Neb Ud) 2.5 mg HHN Q2HRT PRN PRN Reason: Shortness of Breath or Wheeze Stop: 07/23/17 23:32 Albuterol Sulfate (Albuterol 2.5mg/3ml Neb Ud) 2.5 mg HHN BIDRT [facility] Stop: 07/24/17 08:59 Last Admin: 05/27/17 07:24 Dose: 2.5 mg Ascorbic Acid (Vitamin C) 500 mg PO BID [facility] Stop: 07/24/17 16:59 Last Admin: 05/27/17 09:31 Dose: 500 mg Bisacodyl (Dulcolax 10 Mg Supp) 10 mg RC DAILY PRN PRN Reason: Constipation Stop: 07/23/17 23:29 Cyanocobalamin (Vitamin B12) 1,000 mcg PO DAILY [facility] Stop: 07/24/17 11:59 Last Admin: 05/27/17 09:29 Dose: 1,000 mcg Famotidine (Pepcid) 20 mg PO BID [facility] Stop: 07/24/17 16:59 Last Admin: 05/27/17 09:29 Dose: 20 mg Ferrous Sulfate (Iron) 325 mg PO BID [facility] Stop: 07/24/17 16:59 Last Admin: 05/27/17 09:29 Dose: 325 mg Fish Oil ([place] 3) 1,000 mg PO BID [facility] Stop: 07/24/17 16:59 Last Admin: 05/27/17 09:31 Dose: 1,000 mg Guaifenesin (Robitussin) 100 mg PO Q4H PRN PRN Reason: Congestion Stop: 07/23/17 23:29 Heparin Sodium (Porcine) (Heparin) 5,000 units SUBQ Q12HR [facility] Stop: 07/24/17 20:59 Last Admin: 05/27/17 09:38 Dose: 5,000 units Hydralazine HCl (Apresoline) 100 mg PO BID [facility] Stop: 07/24/17 08:59 Last Admin: 05/27/17 09:37 Dose: 100 mg Cefepime HCl 1 gm/ Dextrose 50 mls @ 100 mls/hr IV Q12H [facility] Stop: 07/23/17 23:44 Last Infusion: 05/27/17 00:39 Dose: Infused Dextrose/Sodium Chloride (D5-0.9%Ns) 1,000 mls @ 70 mls/hr IV .[id number] [facility] Stop: 07/24/17 13:13 Last Admin: 05/27/17 02:00 Dose: 70 mls/hr Insulin Aspart (Novolog) 0 units SUBQ ACHS ROSS PRN Reason: Protocol Stop: 07/24/17 07:29 Last Admin: 05/27/17 07:12 Dose: Not Given Ipratropium [place] (Atrovent Neb 0.5mg/2.5ml) 0.5 mg IH Q2HRT PRN PRN Reason: Shortness of Breath or Wheeze Stop: 07/23/17 23:32 Lisinopril (Zestril) 20 mg PO BID [facility] Stop: 07/24/17 08:59 Last Admin: 05/27/17 09:36 Dose: 20 mg Magnesium Hydroxide (Milk Of Magnesia) 30 ml PO DAILY PRN PRN Reason: Constipation Stop: 07/23/17 23:29 Metformin HCl (Glucophage) 500 mg PO DAILY [facility] Stop: 07/24/17 08:59 Last Admin: 05/27/17 09:30 Dose: 500 mg Sodium Phosphate (Fleet Enema) 135 ml RC Q72H PRN PRN Reason: IF DULCOLAX INEFFECTIVE Stop: 07/23/17 23:29 Vitamin D (Vitamin D) 800 iu PO DAILY [facility] Stop: 07/24/17 08:59 Last Admin: 05/27/17 09:29 Dose: 800 iu General: weak, alert HEENT: NC/AT, PERRLA Neck: Supple Lungs: CTAB Cardiovascular: RRR, Normal S1, Normal S2, without murmur Abdomen: soft, non-tender, non-distended Neurological: unable to follow command - Procedures Procedures: Procedures Procedure Code Date ASPIR CURETT UTERUS NEC 69.59 10/29/11 BIOPSY OF CERVIX 03397 09/05/94 CERVICAL LES DESTRUC NEC 67.39 09/05/94 CONTINUOUS INVASIVE MECHANICAL VENTILATION <96 CONSEC HRS 96.71 09/01/14 D & C NEC 69.09 09/05/94 DILATION AND CURETTAGE 59848 10/29/11 EMERGENCY DEPT VISIT 07481 05/28/11 GENITAL SURGERY PROCEDURE 96127 09/05/94 HYMENORRHAPHY 70.76 09/05/94 HYMENOTOMY 70.11 09/05/94 INCISION OF HYMEN 96234 09/05/94 LAPAROSCOPIC CHOLECYSTECTOMY 51.23 11/29/06 LAPAROSCOPIC CHOLECYSTECTOMY 34360 11/29/06 OTHER OPEN UMBILICAL HERNIORRHAPHY 53.49 11/29/06 RPR UMBIL JIHAN BLOCK > 5 YR 99013 11/29/06 Internal Medicine Assmt/Plan - Assessment Assessment: acute dehydration acute uti htn dm2 asthma gastritis anemia - Plan Plan: continue ivf for hydration follow up labs in am continue current orders Nutritional Asmnt/Malnutr-PDOC - Dietary Evaluation Malnutrition Findings (Please click <Entered> for more info): Nutritional Asmnt/Malnutrition Start: 05/26/17 14: 54 Text: Status: Complete Freq: Document 05/26/17 14:54 [email or web address] (Rec: 05/26/17 15:10 [email or web address]-[email or web address]) Nutritional Asmnt/Malnutrition Patient General Information Nutritional Screening High Risk Consult Diagnosis dehydration, UTI Pertinent Medical Hx/Surgical Hx HTN, DM, asthma/COPD, CVA, TIA , seizure, dementia, gastritis , colitis, umbilical hernia, anemia, hydrocephalus Subjective Information Consult received for BS 194 at admitting. Pt seen sleeping at time of visit. Nurse reported pt ate well, consumed about 50% of lunch. Per EMR, pt usually skipped breakfast, ate 50-75% of lunch and dinner . Current Diet Order/ Nutrition Support Pureed KYLAH, NCS, CCHO Pertinent Medications vit C, vit B12, D5-0.9ns, iron , omega 3, novolog, glucophage , vit D Pertinent Labs 05/26 Na 134, Glucose 117, POC 125-237 05/25 Glucose 96, A1c 6.2, POC 158-194 05/24 Glucose 156 Nutritional Hx/Data Height 4 ft 10 in Height (Calculated Centimeters) 147.3 Current Weight (lbs) 110 lb Weight (Calculated Kilograms) 49.9 Weight (Calculated Grams) 10575.2 [place] Body Weight 96 Body Mass Index (BMI) 22.9 Weight Status Approriate GI Symptoms GI Symptoms None Last BM 05/25 Difficult in: None Skin Integrity/Comment: intact, reddened Current %PO Fair (50-74%) Estimated Nutritional Goals BEE in Kcals: Using Current wt Calories/Kcals/Kg 25-30 Kcals Calculated 6131-8052 Protein: Using Current wt Protein g/k-1.2 Protein Calculated 50-60 Fluid: ml 1250-1500ml (1ml/kcal) Nutritional Problem 1. Problem Problem altered nutrition related lab values Etiology hx of DM Signs/Symptoms: Glucose 96-156, POC 125-237, A1c 6.2 Malnutrition Alert Protein-Calorie Malnutrition N/A Is there a minimum of two criteria No selected? Query Text:Check all the applicable criteria. A minimum of two criteria are recommended for diagnosis of either severe or non-severe malnutrition. Intervention/Recommendation Comments 1. Continue with KYLAH, CCHO diet as ordered. 2. Monitor PO intake, wt, labs and skin integrity 3. F/U as moderate risk in 3-5 days, 05/29-05/31 Expected Outcomes/Goals Expected Outcomes/Goals 1. PO intake to meet at least 75% of nutritional needs. 2. Wt stability, skin to remain intact, labs to approach WNL.
[2017-05-28 06:54] LABS: % EOSINOPHILS 9.2 % (0.0-5.0); % LYMPHOCYTES 33.8 % (20.0-50.0); % MONOCYTES 8.2 % (2.0-10.0); % NEUTROPHILS 47.8 % (40.0-80.0); BASOPHILE ABSOLUTE 0.1 Th/cumm (0-0.2); EOSINOPHILE ABSOLUTE 0.6 Th/cmm (0.1-0.4); HEMATOCRIT 26.6 % (41.0-60); HEMOGLOBIN 8.8 gm/dL (12-16); LYMPHOCYTE ABSOLUTE 2.3 Th/cmm (1.5-3.0); MEAN CELL VOLUME 84.1 fl (81-100); MEAN CORPUSCULAR HEMOGLOBIN 27.7 pg (27.0-31.0); MEAN CORPUSCULAR HGB CONC 32.9 pg (28.0-36.0); MEAN PLATELET VOLUME 6.6 fl; MONOCYTE ABSOLUTE 0.5 Th/cmm (0.3-1.0); NEUTROPHILE ABSOLUTE 3.2 Th/cmm (1.8-8.0); PLATELET COUNT 356 Th/cmm (150-400); RED BLOOD COUNT 3.16 Mil/cmm (3.80-5.20); RED CELL DISTRIBUTION WIDTH 13.7 % (11.5-20.0); WHITE BLOOD COUNT 6.7 Th/cmm (4.8-10.8)
[2017-05-28 07:14] LABS: ANION GAP 8.5 (7.0-16.0); BUN - UREA NITROGEN 10 mg/dL (7-25); CALCIUM SERUM 9.8 mg/dL (8.6-10.3); CARBON DIOXIDE 28.1 mEq/L (21.0-31.0); CHLORIDE 103 mEq/L (98-107); CREATININE - SERUM 0.6 mg/dL (0.6-1.2); GLUCOSE 92 mg/dL (70-105); POTASSIUM SERUM 3.6 mEq/L (3.5-5.1); SODIUM SERUM 136 mEq/L (136-145)
[2017-05-28] MEDS: Albuterol Nebulizer 2.5mg/3mL HHN SCH ×2 (07:48→19:02)
[2017-05-28] MEDS: Multivitamin w/ Minerals Tab PO SCH (09:12)
[2017-05-28] MEDS: Ferrous Sulfate 325 MG TAB PO SCH ×2 (09:13→17:00)
[2017-05-28] MEDS: Fish Oil 1,000 MG SGL PO SCH ×2 (09:13→16:59)
[2017-05-28] MEDS: INSULIN ASPART, RECOMBINANT 100 UNITS/ML SUBQ SCH ×4 (12:00→22:53)
--- NOTE | 2017-05-28 14:11 | Internal Medicine Prog Note ---
Internal Medicine Subjective - Subjective Service Date: 05/28/17 Patient is:: awake, non-verbal, stares blankly Per staff patient has:: tolerating meds Internal Medicine Objective - Results Result Diagrams: 05/28/17 06:20 05/28/17 06:20 Recent Labs: Laboratory Last Values WBC 6.7 Th/cmm (4.8-10.8) 05/28/17 06:20 RBC 3.16 Mil/cmm (3.80-5.20) L 05/28/17 06:20 Hgb 8.8 gm/dL (12-16) L 05/28/17 06:20 Hct 26.6 % (41.0-60) L 05/28/17 06:20 MCV 84.1 fl (81-100) 05/28/17 06:20 MCH 27.7 pg (27.0-31.0) 05/28/17 06:20 MCHC Differential 32.9 pg (28.0-36.0) 05/28/17 06:20 RDW 13.7 % (11.5-20.0) 05/28/17 06:20 Plt Count 356 Th/cmm (150-400) 05/28/17 06:20 MPV 6.6 fl 05/28/17 06:20 Neutrophils % 47.8 % (40.0-80.0) 05/28/17 06:20 Lymphocytes % 33.8 % (20.0-50.0) 05/28/17 06:20 Monocytes % 8.2 % (2.0-10.0) 05/28/17 06:20 Eosinophils % 9.2 % (0.0-5.0) H 05/28/17 06:20 Basophils % 1.0 % (0.0-2.0) 05/28/17 06:20 Sodium 136 mEq/L (136-145) 05/28/17 06:20 Potassium 3.6 mEq/L (3.5-5.1) 05/28/17 06:20 Chloride 103 mEq/L (98-107) 05/28/17 06:20 Carbon Dioxide 28.1 mEq/L (21.0-31.0) 05/28/17 06:20 Anion Gap 8.5 (7.0-16.0) 05/28/17 06:20 BUN 10 mg/dL (7-25) 05/28/17 06:20 Creatinine 0.6 mg/dL (0.6-1.2) 05/28/17 06:20 Est GFR ( Amer) TNP 05/28/17 06:20 Est GFR (Non-Af Amer) TNP 05/28/17 06:20 BUN/Creatinine Ratio 16.7 05/28/17 06:20 Glucose 92 mg/dL (70-105) 05/28/17 06:20 POC Glucose 136 MG/DL (70 - 105) H 05/28/17 11:57 Hemoglobin A1c % 6.2 % (4.0-6.0) H 05/25/17 04:30 Calcium 9.8 mg/dL (8.6-10.3) 05/28/17 06:20 Magnesium 2.1 mg/dL (1.9-2.7) 05/26/17 06:57 Total Bilirubin 0.4 mg/dL (0.3-1.0) 05/24/17 18:42 AST 13 U/L (13-39) 05/24/17 18:42 ALT 9 U/L (7-52) 05/24/17 18:42 Alkaline Phosphatase 111 U/L (34-104) H 05/24/17 18:42 Ammonia 40 umol/L (16-53) 05/25/17 04:30 C-Reactive Protein 1.3 mg/dL (0.0-0.9) H 05/24/17 18:42 B-Natriuretic Peptide 86.2 pg/mL (5.0-100.0) 05/25/17 04:30 Total Protein 6.6 gm/dL (6.0-8.3) 05/24/17 18:42 Albumin 3.4 gm/dL (3.7-5.3) L 05/24/17 18:42 Globulin 3.2 gm/dL 05/24/17 18:42 Albumin/Globulin Ratio 1.1 (1.0-1.8) 05/24/17 18:42 Vitamin B12 >1999 pg/mL (232-1245) H 05/25/17 04:30 Folic Acid >20.0 ng/mL (>3.0) 05/25/17 04:30 Urine Source CATH 05/24/17 20:55 Urine Color HAZY 05/24/17 20:55 Urine Clarity CLOUDY (CLEAR) H 05/24/17 20:55 Urine pH 8.5 (4.6 - 8.0) 05/24/17 20:55 Ur Specific [place] 1.010 (1.005-1.030) 05/24/17 20:55 Urine Protein TRACE mg/dL (NEGATIVE) 05/24/17 20:55 Urine Glucose (UA) NEGATIVE mg/dL (NEGATIVE) 05/24/17 20:55 Urine Ketones NEGATIVE mg/dL (NEGATIVE) 05/24/17 20:55 Urine Blood NEGATIVE (NEGATIVE) 05/24/17 20:55 Urine Nitrate NEGATIVE (NEGATIVE) 05/24/17 20:55 Urine Bilirubin NEGATIVE (NEGATIVE) 05/24/17 20:55 Urine Urobilinogen 0.2 E.U./dL (0.2 - 1.0) 05/24/17 20:55 Ur Leukocyte Esterase LARGE (NEGATIVE) H 05/24/17 20:55 Urine RBC NONE SEEN /hpf (0-5) 05/24/17 20:55 Urine WBC 50-100 /hpf (0-5) H 05/24/17 20:55 Ur Epithelial Cells MANY /lpf (FEW) 05/24/17 20:55 Urine Bacteria FEW /hpf (NONE SEEN) 05/24/17 20:55 - Physical Exam Vitals and I&O: Vital Signs Temp 97 F 05/27/17 20:00 Pulse 75 05/28/17 09:16 Resp 75 05/28/17 09:30 BP 125/58 05/28/17 09:30 Pulse Ox 96 05/28/17 07:48 Intake & Output 05/27/17 05/28/17 05/28/17 18:59 06:59 18:59 Intake Total 1850 50 Balance 1850 50 Weight (lbs) 110 lb 109 lb 12.8 oz Intake: Intake, IV Amount 1050 50 Cefepime 1 gm In Dextrose 50 50 5% 50 ml @ 100 mls/hr IV Q12H ROSS Rx#:[id number] D5-0.9%Ns 1,000 ml @ 70 1000 mls/hr IV .[id number] ROSS Rx #:[id number] Oral 800 Other: # Voids 2 # Bowel Movements 0 Active Medications: Current Medications Acetaminophen (Tylenol) 650 mg PO Q4H PRN PRN Reason: Pain Or Fever above 99.9 Stop: 07/23/17 23:29 Albuterol Sulfate (Albuterol 2.5mg/3ml Neb Ud) 2.5 mg HHN Q2HRT PRN PRN Reason: Shortness of Breath or Wheeze Stop: 07/23/17 23:32 Albuterol Sulfate (Albuterol 2.5mg/3ml Neb Ud) 2.5 mg HHN BIDRT ROSS Stop: 07/24/17 08:59 Last Admin: 05/28/17 07:48 Dose: 2.5 mg Ascorbic Acid (Vitamin C) 500 mg PO BID ROSS Stop: 07/24/17 16:59 Last Admin: 05/28/17 09:13 Dose: 500 mg Bisacodyl (Dulcolax 10 Mg Supp) 10 mg RC DAILY PRN PRN Reason: Constipation Stop: 07/23/17 23:29 Cyanocobalamin (Vitamin B12) 1,000 mcg PO DAILY [facility] Stop: 07/24/17 11:59 Last Admin: 05/28/17 09:12 Dose: 1,000 mcg Famotidine (Pepcid) 20 mg PO BID ROSS Stop: 07/24/17 16:59 Last Admin: 05/28/17 09:13 Dose: 20 mg Ferrous Sulfate (Iron) 325 mg PO BID ROSS Stop: 07/24/17 16:59 Last Admin: 05/28/17 09:13 Dose: 325 mg Fish Oil ([place] 3) 1,000 mg PO BID ROSS Stop: 07/24/17 16:59 Last Admin: 05/28/17 09:13 Dose: 1,000 mg Guaifenesin (Robitussin) 100 mg PO Q4H PRN PRN Reason: Congestion Stop: 07/23/17 23:29 Last Admin: 05/28/17 06:34 Dose: 100 mg Heparin Sodium (Porcine) (Heparin) 5,000 units SUBQ Q12HR ROSS Stop: 07/24/17 20:59 Last Admin: 05/28/17 09:27 Dose: 5,000 units Hydralazine HCl (Apresoline) 100 mg PO BID ROSS Stop: 07/24/17 08:59 Last Admin: 05/28/17 09:16 Dose: 100 mg Dextrose/Sodium Chloride (D5-0.9%Ns) 1,000 mls @ 70 mls/hr IV .[id number] [facility] Stop: 07/24/17 13:13 Last Admin: 05/27/17 22:37 Dose: 70 mls/hr Piperacillin Sod/Tazobactam (Sod 4.5 gm/ Sodium Chloride) 100 mls @ 100 mls/hr IV Q8HR [facility] Stop: 07/27/17 12:59 Insulin Aspart (Novolog) 0 units SUBQ ACHS [facility] PRN Reason: Protocol Stop: 07/24/17 07:29 Last Admin: 05/28/17 12:41 Dose: Not Given Ipratropium [place] (Atrovent Neb 0.5mg/2.5ml) 0.5 mg IH Q2HRT PRN PRN Reason: Shortness of Breath or Wheeze Stop: 07/23/17 23:32 Lisinopril (Zestril) 20 mg PO BID [facility] Stop: 07/24/17 08:59 Last Admin: 05/28/17 09:13 Dose: 20 mg Magnesium Hydroxide (Milk Of Magnesia) 30 ml PO DAILY PRN PRN Reason: Constipation Stop: 07/23/17 23:29 Metformin HCl (Glucophage) 500 mg PO DAILY [facility] Stop: 07/24/17 08:59 Last Admin: 05/28/17 09:15 Dose: 500 mg Sodium Phosphate (Fleet Enema) 135 ml RC Q72H PRN PRN Reason: IF DULCOLAX INEFFECTIVE Stop: 07/23/17 23:29 Vitamin D (Vitamin D) 800 iu PO DAILY [facility] Stop: 07/24/17 08:59 Last Admin: 05/28/17 09:12 Dose: 800 iu General: weak, alert HEENT: NC/AT, PERRLA Neck: Supple Lungs: CTAB Cardiovascular: RRR, Normal S1, Normal S2, without murmur Abdomen: soft, non-tender, non-distended Neurological: unable to follow command - Procedures Procedures: Procedures Procedure Code Date ASPIR CURETT UTERUS NEC 69.59 10/29/11 BIOPSY OF CERVIX 31544 09/05/94 CERVICAL LES DESTRUC NEC 67.39 09/05/94 CONTINUOUS INVASIVE MECHANICAL VENTILATION <96 CONSEC HRS 96.71 09/01/14 D & C NEC 69.09 09/05/94 DILATION AND CURETTAGE 42821 10/29/11 EMERGENCY DEPT VISIT 19039 05/28/11 GENITAL SURGERY PROCEDURE 39120 09/05/94 HYMENORRHAPHY 70.76 09/05/94 HYMENOTOMY 70.11 09/05/94 INCISION OF HYMEN 33941 09/05/94 LAPAROSCOPIC CHOLECYSTECTOMY 51.23 11/29/06 LAPAROSCOPIC CHOLECYSTECTOMY 64844 11/29/06 OTHER OPEN UMBILICAL HERNIORRHAPHY 53.49 11/29/06 RPR UMBIL JIHAN BLOCK > 5 YR 30775 11/29/06 Internal Medicine Assmt/Plan - Assessment Assessment: acute dehydration acute uti, urine culture +esbl e.coli htn dm2 asthma gastritis anemia - Plan Plan: will switch ivabx to zosyn continue ivf for hydration follow up labs in am continue current orders Nutritional Asmnt/Malnutr-PDOC - Dietary Evaluation Malnutrition Findings (Please click <Entered> for more info): Nutritional Asmnt/Malnutrition Start: 05/26/17 14: 54 Text: Status: Complete Freq: Document 05/26/17 14:54 MERCED (Rec: 05/26/17 15:10 [email or web address] Nutritional Asmnt/Malnutrition Patient General Information Nutritional Screening High Risk Consult Diagnosis dehydration, UTI Pertinent Medical Hx/Surgical Hx HTN, DM, asthma/COPD, CVA, TIA , seizure, dementia, gastritis , colitis, umbilical hernia, anemia, hydrocephalus Subjective Information Consult received for BS 194 at admitting. Pt seen sleeping at time of visit. Nurse reported pt ate well, consumed about 50% of lunch. Per EMR, pt usually skipped breakfast, ate 50-75% of lunch and dinner . Current Diet Order/ Nutrition Support Pureed KYLAH, NCS, CCHO Pertinent Medications vit C, vit B12, D5-0.9ns, iron , omega 3, novolog, glucophage , vit D Pertinent Labs 05/26 Na 134, Glucose 117, POC 125-237 05/25 Glucose 96, A1c 6.2, POC 158-194 05/24 Glucose 156 Nutritional Hx/Data Height 4 ft 10 in Height (Calculated Centimeters) 147.3 Current Weight (lbs) 110 lb Weight (Calculated Kilograms) 49.9 Weight (Calculated Grams) 71765.2 [place] Body Weight 96 Body Mass Index (BMI) 22.9 Weight Status Approriate GI Symptoms GI Symptoms None Last BM 05/25 Difficult in: None Skin Integrity/Comment: intact, reddened Current %PO Fair (50-74%) Estimated Nutritional Goals BEE in Kcals: Using Current wt Calories/Kcals/Kg 25-30 Kcals Calculated 3785-8326 Protein: Using Current wt Protein g/k-1.2 Protein Calculated 50-60 Fluid: ml 1250-1500ml (1ml/kcal) Nutritional Problem 1. Problem Problem altered nutrition related lab values Etiology hx of DM Signs/Symptoms: Glucose 96-156, POC 125-237, A1c 6.2 Malnutrition Alert Protein-Calorie Malnutrition N/A Is there a minimum of two criteria No selected? Query Text:Check all the applicable criteria. A minimum of two criteria are recommended for diagnosis of either severe or non-severe malnutrition. Intervention/Recommendation Comments 1. Continue with KYLAH, CCHO diet as ordered. 2. Monitor PO intake, wt, labs and skin integrity 3. F/U as moderate risk in 3-5 days, 05/29-05/31 Expected Outcomes/Goals Expected Outcomes/Goals 1. PO intake to meet at least 75% of nutritional needs. 2. Wt stability, skin to remain intact, labs to approach WNL.
[2017-05-28] MEDS: D5-0.9%NS 1,000 ML IV SCH (17:34)
[2017-05-29 05:44] LABS: EOSINOPHILE ABSOLUTE 0.7 Th/cmm (0.1-0.4); LYMPHOCYTE ABSOLUTE 2.3 Th/cmm (1.5-3.0); MEAN CORPUSCULAR HGB CONC 33.3 pg (28.0-36.0)
[2017-05-29 05:51] LABS: % BASOPHILS 0.6 % (0.0-2.0); % EOSINOPHILS 7.8 % (0.0-5.0); % MONOCYTES 6.5 % (2.0-10.0); % NEUTROPHILS 58.1 % (40.0-80.0); BASOPHILE ABSOLUTE 0.1 Th/cumm (0-0.2); HEMATOCRIT 25.5 % (41.0-60); HEMOGLOBIN 8.5 gm/dL (12-16); MEAN CELL VOLUME 83.6 fl (81-100); MEAN CORPUSCULAR HEMOGLOBIN 27.8 pg (27.0-31.0); MEAN PLATELET VOLUME 6.6 fl; MONOCYTE ABSOLUTE 0.6 Th/cmm (0.3-1.0); NEUTROPHILE ABSOLUTE 4.8 Th/cmm (1.8-8.0); PLATELET COUNT 325 Th/cmm (150-400); RED BLOOD COUNT 3.05 Mil/cmm (3.80-5.20); RED CELL DISTRIBUTION WIDTH 13.6 % (11.5-20.0)
[2017-05-29 05:52] LABS: WHITE BLOOD COUNT 8.5 Th/cmm (4.8-10.8)
[2017-05-29 06:08] LABS: ANION GAP 8.6 (7.0-16.0); BUN - UREA NITROGEN 15 mg/dL (7-25); CALCIUM SERUM 9.8 mg/dL (8.6-10.3); CARBON DIOXIDE 30.2 mEq/L (21.0-31.0); CHLORIDE 103 mEq/L (98-107); CREATININE - SERUM 0.9 mg/dL (0.6-1.2); GLUCOSE 141 mg/dL (70-105); POTASSIUM SERUM 3.8 mEq/L (3.5-5.1); SODIUM SERUM 138 mEq/L (136-145)
[2017-05-29] MEDS ORDERED: Albuterol Nebulizer 2.5mg/3mL HHN ONE (07:20)
[2017-05-29] MEDS: Albuterol Nebulizer 2.5mg/3mL HHN SCH ×2 (07:46→19:10)
[2017-05-29] MEDS: INSULIN ASPART, RECOMBINANT 100 UNITS/ML SUBQ SCH ×4 (08:00→20:59)
[2017-05-29] MEDS: Multivitamin w/ Minerals Tab PO SCH (09:16)
[2017-05-29] MEDS: Fish Oil 1,000 MG SGL PO SCH ×2 (09:16→18:04)
[2017-05-29] MEDS: Ferrous Sulfate 325 MG TAB PO SCH ×2 (09:17→18:03)
--- NOTE | 2017-05-29 12:30 | Internal Medicine Prog Note ---
Internal Medicine Subjective - Subjective Service Date: 05/29/17 Patient is:: awake, non-verbal, stares blankly Per staff patient has:: tolerating meds Internal Medicine Objective - Results Result Diagrams: 05/29/17 05:35 05/29/17 05:35 Recent Labs: Laboratory Last Values WBC 8.5 Th/cmm (4.8-10.8) D 05/29/17 05:35 RBC 3.05 Mil/cmm (3.80-5.20) L 05/29/17 05:35 Hgb 8.5 gm/dL (12-16) L 05/29/17 05:35 Hct 25.5 % (41.0-60) L 05/29/17 05:35 MCV 83.6 fl (81-100) 05/29/17 05:35 MCH 27.8 pg (27.0-31.0) 05/29/17 05:35 MCHC Differential 33.3 pg (28.0-36.0) 05/29/17 05:35 RDW 13.6 % (11.5-20.0) 05/29/17 05:35 Plt Count 325 Th/cmm (150-400) 05/29/17 05:35 MPV 6.6 fl 05/29/17 05:35 Neutrophils % 58.1 % (40.0-80.0) 05/29/17 05:35 Lymphocytes % 27.0 % (20.0-50.0) 05/29/17 05:35 Monocytes % 6.5 % (2.0-10.0) 05/29/17 05:35 Eosinophils % 7.8 % (0.0-5.0) H 05/29/17 05:35 Basophils % 0.6 % (0.0-2.0) 05/29/17 05:35 Sodium 138 mEq/L (136-145) 05/29/17 05:35 Potassium 3.8 mEq/L (3.5-5.1) 05/29/17 05:35 Chloride 103 mEq/L (98-107) 05/29/17 05:35 Carbon Dioxide 30.2 mEq/L (21.0-31.0) 05/29/17 05:35 Anion Gap 8.6 (7.0-16.0) 05/29/17 05:35 BUN 15 mg/dL (7-25) 05/29/17 05:35 Creatinine 0.9 mg/dL (0.6-1.2) 05/29/17 05:35 Est GFR ( Amer) TNP 05/29/17 05:35 Est GFR (Non-Af Amer) TNP 05/29/17 05:35 BUN/Creatinine Ratio 16.7 05/29/17 05:35 Glucose 141 mg/dL (70-105) H 05/29/17 05:35 POC Glucose 166 MG/DL (70 - 105) H 05/28/17 16:57 Hemoglobin A1c % 6.2 % (4.0-6.0) H 05/25/17 04:30 Calcium 9.8 mg/dL (8.6-10.3) 05/29/17 05:35 Magnesium 2.1 mg/dL (1.9-2.7) 05/26/17 06:57 Total Bilirubin 0.4 mg/dL (0.3-1.0) 05/24/17 18:42 AST 13 U/L (13-39) 05/24/17 18:42 ALT 9 U/L (7-52) 05/24/17 18:42 Alkaline Phosphatase 111 U/L (34-104) H 05/24/17 18:42 Ammonia 40 umol/L (16-53) 05/25/17 04:30 C-Reactive Protein 1.3 mg/dL (0.0-0.9) H 05/24/17 18:42 B-Natriuretic Peptide 86.2 pg/mL (5.0-100.0) 05/25/17 04:30 Total Protein 6.6 gm/dL (6.0-8.3) 05/24/17 18:42 Albumin 3.4 gm/dL (3.7-5.3) L 05/24/17 18:42 Globulin 3.2 gm/dL 05/24/17 18:42 Albumin/Globulin Ratio 1.1 (1.0-1.8) 05/24/17 18:42 Vitamin B12 >1999 pg/mL (232-1245) H 05/25/17 04:30 Folic Acid >20.0 ng/mL (>3.0) 05/25/17 04:30 Urine Source CATH 05/24/17 20:55 Urine Color HAZY 05/24/17 20:55 Urine Clarity CLOUDY (CLEAR) H 05/24/17 20:55 Urine pH 8.5 (4.6 - 8.0) 05/24/17 20:55 Ur Specific [place] 1.010 (1.005-1.030) 05/24/17 20:55 Urine Protein TRACE mg/dL (NEGATIVE) 05/24/17 20:55 Urine Glucose (UA) NEGATIVE mg/dL (NEGATIVE) 05/24/17 20:55 Urine Ketones NEGATIVE mg/dL (NEGATIVE) 05/24/17 20:55 Urine Blood NEGATIVE (NEGATIVE) 05/24/17 20:55 Urine Nitrate NEGATIVE (NEGATIVE) 05/24/17 20:55 Urine Bilirubin NEGATIVE (NEGATIVE) 05/24/17 20:55 Urine Urobilinogen 0.2 E.U./dL (0.2 - 1.0) 05/24/17 20:55 Ur Leukocyte Esterase LARGE (NEGATIVE) H 05/24/17 20:55 Urine RBC NONE SEEN /hpf (0-5) 05/24/17 20:55 Urine WBC 50-100 /hpf (0-5) H 05/24/17 20:55 Ur Epithelial Cells MANY /lpf (FEW) 05/24/17 20:55 Urine Bacteria FEW /hpf (NONE SEEN) 05/24/17 20:55 - Physical Exam Vitals and I&O: Vital Signs Temp 96.2 F 05/29/17 07:55 Pulse 69 05/29/17 11:28 Resp 16 05/29/17 07:55 BP 129/79 05/29/17 11:28 Pulse Ox 98 05/29/17 07:55 Intake & Output 05/28/17 05/29/17 05/29/17 18:59 06:59 18:59 Intake Total 1100 700.000 Output Total 1200 Balance 1100 -500.000 Weight (lbs) 109 lb 12.8 oz 109 lb Intake: Intake, IV Amount 1100 100.000 D5-0.9%Ns 1,000 ml @ 70 1000 mls/hr IV .[id number] ROSS Rx #:[id number] Piperacillin Sodium/ 100 100.000 Tazobact 4.5 gm In Sodium Chloride 0.9% 100 ml @ 100 mls/hr IV Q8HR ROSS Rx #:[id number] Oral 600 Output: Urine 1200 Active Medications: Current Medications Acetaminophen (Tylenol) 650 mg PO Q4H PRN PRN Reason: Pain Or Fever above 99.9 Stop: 07/23/17 23:29 Albuterol Sulfate (Albuterol 2.5mg/3ml Neb Ud) 2.5 mg HHN Q2HRT PRN PRN Reason: Shortness of Breath or Wheeze Stop: 07/23/17 23:32 Albuterol Sulfate (Albuterol 2.5mg/3ml Neb Ud) 2.5 mg HHN BIDRT [facility] Stop: 07/24/17 08:59 Last Admin: 05/29/17 07:46 Dose: 2.5 mg Ascorbic Acid (Vitamin C) 500 mg PO BID [facility] Stop: 07/24/17 16:59 Last Admin: 05/29/17 09:16 Dose: 500 mg Bisacodyl (Dulcolax 10 Mg Supp) 10 mg RC DAILY PRN PRN Reason: Constipation Stop: 07/23/17 23:29 Cyanocobalamin (Vitamin B12) 1,000 mcg PO DAILY [facility] Stop: 07/24/17 11:59 Last Admin: 05/29/17 09:16 Dose: 1,000 mcg Famotidine (Pepcid) 20 mg PO BID [facility] Stop: 07/24/17 16:59 Last Admin: 05/29/17 09:16 Dose: 20 mg Ferrous Sulfate (Iron) 325 mg PO BID [facility] Stop: 07/24/17 16:59 Last Admin: 05/29/17 09:17 Dose: 325 mg Fish Oil ([place] 3) 1,000 mg PO BID [facility] Stop: 07/24/17 16:59 Last Admin: 05/29/17 09:16 Dose: 1,000 mg Guaifenesin (Robitussin) 100 mg PO Q4H PRN PRN Reason: Congestion Stop: 07/23/17 23:29 Last Admin: 05/28/17 06:34 Dose: 100 mg Heparin Sodium (Porcine) (Heparin) 5,000 units SUBQ Q12HR [facility] Stop: 07/24/17 20:59 Last Admin: 05/29/17 09:17 Dose: 5,000 units Hydralazine HCl (Apresoline) 100 mg PO BID [facility] Stop: 07/24/17 08:59 Last Admin: 05/29/17 11:28 Dose: 100 mg Dextrose/Sodium Chloride (D5-0.9%Ns) 1,000 mls @ 70 mls/hr IV .[id number] [facility] Stop: 07/24/17 13:13 Last Admin: 05/28/17 17:34 Dose: 70 mls/hr Piperacillin Sod/Tazobactam (Sod 4.5 gm/ Sodium Chloride) 100 mls @ 100 mls/hr IV Q8HR [facility] Stop: 07/27/17 12:59 Last Admin: 05/29/17 06:47 Dose: 100 mls/hr Insulin Aspart (Novolog) 0 units SUBQ ACHS [facility] PRN Reason: Protocol Stop: 07/24/17 07:29 Last Admin: 05/29/17 08:00 Dose: Not Given Ipratropium [place] (Atrovent Neb 0.5mg/2.5ml) 0.5 mg IH Q2HRT PRN PRN Reason: Shortness of Breath or Wheeze Stop: 07/23/17 23:32 Lisinopril (Zestril) 20 mg PO BID [facility] Stop: 07/24/17 08:59 Last Admin: 05/29/17 11:28 Dose: 20 mg Magnesium Hydroxide (Milk Of Magnesia) 30 ml PO DAILY PRN PRN Reason: Constipation Stop: 07/23/17 23:29 Metformin HCl (Glucophage) 500 mg PO DAILY [facility] Stop: 07/24/17 08:59 Last Admin: 05/29/17 09:16 Dose: 500 mg Sodium Phosphate (Fleet Enema) 135 ml RC Q72H PRN PRN Reason: IF DULCOLAX INEFFECTIVE Stop: 07/23/17 23:29 Vitamin D (Vitamin D) 800 iu PO DAILY [facility] Stop: 07/24/17 08:59 Last Admin: 05/29/17 09:16 Dose: 800 iu General: weak, alert HEENT: NC/AT, PERRLA Neck: Supple Lungs: CTAB Cardiovascular: RRR, Normal S1, Normal S2, without murmur Abdomen: soft, non-tender, non-distended Neurological: unable to follow command - Procedures Procedures: Procedures Procedure Code Date ASPIR CURETT UTERUS NEC 69.59 10/29/11 BIOPSY OF CERVIX 26379 09/05/94 CERVICAL LES DESTRUC NEC 67.39 09/05/94 CONTINUOUS INVASIVE MECHANICAL VENTILATION <96 CONSEC HRS 96.71 09/01/14 D & C NEC 69.09 09/05/94 DILATION AND CURETTAGE 22490 10/29/11 EMERGENCY DEPT VISIT 85433 05/28/11 GENITAL SURGERY PROCEDURE 66739 09/05/94 HYMENORRHAPHY 70.76 09/05/94 HYMENOTOMY 70.11 09/05/94 INCISION OF HYMEN 44900 09/05/94 LAPAROSCOPIC CHOLECYSTECTOMY 51.23 11/29/06 LAPAROSCOPIC CHOLECYSTECTOMY 92953 11/29/06 OTHER OPEN UMBILICAL HERNIORRHAPHY 53.49 11/29/06 RPR UMBIL JIHAN BLOCK > 5 YR 95461 11/29/06 Internal Medicine Assmt/Plan - Assessment Assessment: acute dehydration acute uti, urine culture +esbl e.coli htn dm2 asthma gastritis anemia - Plan Plan: LTAC EVAL continue ivf for hydration follow up labs in am continue current orders Nutritional Asmnt/Malnutr-PDOC - Dietary Evaluation Malnutrition Findings (Please click <Entered> for more info): Nutritional Asmnt/Malnutrition Start: 05/26/17 14: 54 Text: Status: Complete Freq: Document 05/26/17 14:54 LCHENG (Rec: 05/26/17 15:10 [email or web address]) Nutritional Asmnt/Malnutrition Patient General Information Nutritional Screening High Risk Consult Diagnosis dehydration, UTI Pertinent Medical Hx/Surgical Hx HTN, DM, asthma/COPD, CVA, TIA , seizure, dementia, gastritis , colitis, umbilical hernia, anemia, hydrocephalus Subjective Information Consult received for BS 194 at admitting. Pt seen sleeping at time of visit. Nurse reported pt ate well, consumed about 50% of lunch. Per EMR, pt usually skipped breakfast, ate 50-75% of lunch and dinner . Current Diet Order/ Nutrition Support Pureed KYLAH, NCS, CCHO Pertinent Medications vit C, vit B12, D5-0.9ns, iron , omega 3, novolog, glucophage , vit D Pertinent Labs 05/26 Na 134, Glucose 117, POC 125-237 05/25 Glucose 96, A1c 6.2, POC 158-194 05/24 Glucose 156 Nutritional Hx/Data Height 4 ft 10 in Height (Calculated Centimeters) 147.3 Current Weight (lbs) 110 lb Weight (Calculated Kilograms) 49.9 Weight (Calculated Grams) 07769.2 [place] Body Weight 96 Body Mass Index (BMI) 22.9 Weight Status Approriate GI Symptoms GI Symptoms None Last BM 05/25 Difficult in: None Skin Integrity/Comment: intact, reddened Current %PO Fair (50-74%) Estimated Nutritional Goals BEE in Kcals: Using Current wt Calories/Kcals/Kg 25-30 Kcals Calculated 8877-9720 Protein: Using Current wt Protein g/k-1.2 Protein Calculated 50-60 Fluid: ml 1250-1500ml (1ml/kcal) Nutritional Problem 1. Problem Problem altered nutrition related lab values Etiology hx of DM Signs/Symptoms: Glucose 96-156, POC 125-237, A1c 6.2 Malnutrition Alert Protein-Calorie Malnutrition N/A Is there a minimum of two criteria No selected? Query Text:Check all the applicable criteria. A minimum of two criteria are recommended for diagnosis of either severe or non-severe malnutrition. Intervention/Recommendation Comments 1. Continue with KYLAH, CCHO diet as ordered. 2. Monitor PO intake, wt, labs and skin integrity 3. F/U as moderate risk in 3-5 days, 05/29-05/31 Expected Outcomes/Goals Expected Outcomes/Goals 1. PO intake to meet at least 75% of nutritional needs. 2. Wt stability, skin to remain intact, labs to approach WNL.
[2017-05-29] MEDS: D5-0.9%NS 1,000 ML IV SCH (12:35)
[2017-05-29] MEDS ORDERED: Probiotic Screen MC PRN (15:14)
[2017-05-30] MEDS: D5-0.9%NS 1,000 ML IV SCH (00:48)
[2017-05-30 06:38] LABS: % EOSINOPHILS 7.3 % (0.0-5.0); % LYMPHOCYTES 28.4 % (20.0-50.0); % MONOCYTES 6.7 % (2.0-10.0); % NEUTROPHILS 56.6 % (40.0-80.0); BASOPHILE ABSOLUTE 0.1 Th/cumm (0-0.2); EOSINOPHILE ABSOLUTE 0.6 Th/cmm (0.1-0.4); HEMATOCRIT 23.8 % (41.0-60); LYMPHOCYTE ABSOLUTE 2.2 Th/cmm (1.5-3.0); MEAN CORPUSCULAR HEMOGLOBIN 28.5 pg (27.0-31.0); MEAN CORPUSCULAR HGB CONC 33.6 pg (28.0-36.0); MEAN PLATELET VOLUME 6.8 fl; MONOCYTE ABSOLUTE 0.5 Th/cmm (0.3-1.0); NEUTROPHILE ABSOLUTE 4.2 Th/cmm (1.8-8.0); PLATELET COUNT 285 Th/cmm (150-400); WHITE BLOOD COUNT 7.6 Th/cmm (4.8-10.8)
[2017-05-30 06:51] LABS: ANION GAP 6.7 (7.0-16.0); BUN - UREA NITROGEN 13 mg/dL (7-25); CALCIUM SERUM 9.2 mg/dL (8.6-10.3); CARBON DIOXIDE 29.5 mEq/L (21.0-31.0); CHLORIDE 106 mEq/L (98-107); CREATININE - SERUM 0.7 mg/dL (0.6-1.2); GLUCOSE 105 mg/dL (70-105); POTASSIUM SERUM 3.2 mEq/L (3.5-5.1); SODIUM SERUM 139 mEq/L (136-145)
[2017-05-30] MEDS: INSULIN ASPART, RECOMBINANT 100 UNITS/ML SUBQ SCH ×3 (06:56→16:26)
[2017-05-30] MEDS: Albuterol Nebulizer 2.5mg/3mL HHN SCH ×2 (06:57→18:57)
[2017-05-30] MEDS: Fish Oil 1,000 MG SGL PO SCH ×2 (08:37→16:18)
[2017-05-30] MEDS: Ferrous Sulfate 325 MG TAB PO SCH ×2 (08:37→16:18)
[2017-05-30] MEDS: Multivitamin w/ Minerals Tab PO SCH (08:38)
[2017-05-30] MEDS ORDERED: Lactobacillus Rhamnosus GG 15 Billion CFU CAP.SPRINK PO SCH (09:00)
[2017-05-30] MEDS ORDERED: Potassium Chloride 20 mEq ER Tab PO ONE (13:04)
--- NOTE | 2017-05-30 19:11 | Discharge Summary ---
DATE OF DISCHARGE: 05/30/2017 CHIEF COMPLAINT: Increased weakness. FINAL DIAGNOSES: 1. Dehydration. 2. Urinary tract infection. 3. Extended-spectrum b-lactamase Escherichia coli. 4. Hypertension. 5. Gastritis 6. Anemia. 7. Electrolyte abnormalities. HISTORY: This is [id number] female from nursing facility found to be altered compared to her baseline. The patient has been not eating as well. The patient was seen in the ER and diagnosed with dehydration and UTI. PHYSICAL EXAMINATION: VITAL SIGNS: Blood pressure , respiration 18, pulse rate 89, temperature is 96.9. GENERAL: Elderly female, chronically ill. NECK: Supple, nonpainful. LUNGS: Equal breath sounds, few rhonchi. HEART: Regular rate and rhythm with systolic ejection murmur. ABDOMEN: Soft, globular. EXTREMITIES: Positive excoriations. LABORATORY DATA: Hemoglobin is 8. Potassium 3.2. MICROBIOLOGY: Urine culture for E. coli ESBL. HOSPITAL COURSE: This patient was admitted to telemetry, continued on oxygen and bronchodilator treatment and IV hydration. The patient is on fentanyl, IV Zosyn. The patient transferred to long-term acute care. CONDITION ON DISCHARGE: Fair. DISCHARGE INSTRUCTIONS: The patient will transfer to long-term acute care. JOB# [id number]
== END 2017-05-30 20:25 | DRG 640 ==
LOC: ER 18:11 → TELE 22:12 → MSI 05-25 11:10 → TELE 05-27 17:50
PROVIDERS: ADMIT Internal Medicine; ATTEND Internal Medicine
DX: E86.0 Dehydration (principal); G93.41 Metabolic encephalopathy; K52.9 Noninfective gastroenteritis and colitis, unspecified; G91.9 Hydrocephalus, unspecified; D64.9 Anemia, unspecified; F20.0 Paranoid schizophrenia; R13.10 Dysphagia, unspecified; E87.1 Hypo-osmolality and hyponatremia; N39.0 Urinary tract infection, site not specified; E11.9 Type 2 diabetes mellitus without complications; F03.90 Unspecified dementia, unspecified severity, without behavioral disturbance, psychotic disturbance, mood disturbance, and anxiety; F29 Unspecified psychosis not due to a substance or known physiological condition; H40.9 Unspecified glaucoma; M19.90 Unspecified osteoarthritis, unspecified site; K29.70 Gastritis, unspecified, without bleeding; K42.9 Umbilical hernia without obstruction or gangrene; G40.909 Epilepsy, unspecified, not intractable, without status epilepticus; B96.20 Unspecified Escherichia coli [E. coli] as the cause of diseases classified elsewhere; Z16.12 Extended spectrum beta lactamase (ESBL) resistance; J44.9 Chronic obstructive pulmonary disease, unspecified; I10 Essential (primary) hypertension; Z86.73 Personal history of transient ischemic attack (TIA), and cerebral infarction without residual deficits; Z98.2 Presence of cerebrospinal fluid drainage device; Z79.899 Other long term (current) drug therapy
CPT/HCPCS: 36415-UA; 71045-TC; 80048-TC; 80053-TC; 81001-TC; 82140-TC; 82607-90; 82746-90; 82948-90; 83036-90; 83735-TC; 83880-TC; 85025-TC; 86141-TC; 87086-90; 93005; 94640; 94760; C9113; J0692; J0696; J1644; J1815; J2543; J3475; J7030; J7042; J7613; Z7610

== ENCOUNTER 2017-08-23 21:05 | Inpatient (IN) | payer MEDICARE, MEDICAID ==
--- NOTE | 2017-08-23 21:40 | ED Physician Chart ---
ED Chief Complaint/HPI - Patient Information Date Seen:: 08/23/17 Time Seen:: 21:25 Chief Complaint:: fever History of Present Illness:: Patient had a temperature of 102.3 at her extended care facility and a pulse ox of 91% Allergies:: Allergies Allergy/AdvReac Type Severity Reaction Status Date / Time No Known Allergies Allergy Verified 03/22/17 21:14 Vitals:: Vital Signs - 8 hr 08/23/17 21:15 Temp 101.2 F HR 98 RR 24 BP 150/68 O2 Sat % 99 Review:: Transfer documents Reviewed ED Review of Systems - Review of Systems General/Constitutional: Fever, No chills, No weight loss, No weakness, No diaphoresis, No edema, No loss of appetite Skin: No skin lesions, No rash, No bruising Head: No headache, No light-headedness Eyes: No loss of vision, No pain, No diplopia ENT: No earache, No nasal drainage, No sore throat, No tinnitus Neck: No neck pain, No swelling, No thyromegaly, No stiffness, No mass noted Cardio Vascular: No chest pain, No palpitations, No PND, No orthopnea, No edema Pulmonary: No SOB, No cough, No sputum, No wheezing GI: No nausea, No vomiting, No diarrhea, No pain, No melena, No hematochezia, No constipation, No hematemesis G/U: No dysuria, No frequency, No hematuria Musculoskeletal: No bone or joint pain, No back pain, No muscle pain Endocrine: No polyuria, No polydipsia Psychiatric: No prior psych history, No depression, No anxiety, No suicidal ideation Hematopoietic: No bruising, No lymphadenopathy Allergic/Immuno: No urticaria, No angioedema Neurological: No syncope, No focal symptoms, No weakness, No paresthesia, No headache, No seizure, No dizziness, No confusion, No vertigo ED Past Medical History - Past Medical History Past Medical History: HTN, DM, Asthma/COPD, CVA/TIA, Seizures, Arthritis, Other (glaucoma; gastritis colitis; umbilical hernia; paranoid schizophrenia; anemia; status post CVA; hydrocephalus; dysphagia; history of respiratory failure;) Social History: Care Facility Surgical History: other (shunt for hydrocephalus) Psychiatricy History: Schizophrenia Medication: Reviewed Family Medical History - Family Member Mother History Unknown: Yes Living Status: Unknown Hx Family Cancer: No Hx Family Coronary Artery Disease: No Hx Family Congestive Heart Failure: No Hx Family Hypertension: Yes Hx Family Stroke: No Hx Family Diabetes: Yes Hx Family Seizures: No Hx Family COPD: Yes ED Physical Exam - Physical Examination Other Gen/Cons comments:: Chronically ill-appearing; does not answer questions Head: Atraumatic Other Eyes comments:: Some crusting of eyelids Skin: Nl inspection ENMT: External ears, nose nl, TM canals nl, Nasal exam nl, Oropharynx nl Other ENMT comments:: Cor dental hygiene Neck: No nuchal rigidity Respiratory: Nl effort/Exclusion, Clear to Auscultation, No Wheeze/Rhonchi/Rales Cardio Vascular: RRR, No murmur, gallop, rubs, NL S1 S2 GI: No tenderness/rebounding/guarding : No CVA tenderness Extremities: No tenderness or effusion Neuro/Psych: No focal deficits Misc: Normal back ED Labs/Radiology/EKG Results - Lab Results Results: Laboratory Results - last 24 hr 08/23/17 08/23/17 08/23/17 21:45 21:45 21:45 WBC 14.8 H RBC 3.60 L Hgb 10.1 L Hct 30.9 L MCV 85.9 MCH 28.0 MCHC Differential 32.6 RDW 12.2 Plt Count 317 MPV 6.5 Neutrophils % 77.4 Lymphocytes % 13.2 L Monocytes % 9.0 Eosinophils % 0.2 Basophils % 0.2 Sodium 129 L Potassium 4.1 Chloride 93 L Carbon Dioxide 29.7 Anion Gap 10.4 BUN 23 Creatinine 1.0 Est GFR ( Amer) TNP Est GFR (Non-Af Amer) TNP BUN/Creatinine Ratio 23.0 Glucose 160 H Whole Bld Lactic Acid 0.94 Calcium 10.3 Urine Source Urine Color Urine Clarity Urine pH Ur Specific [place] Urine Protein Urine Glucose (UA) Urine Ketones Urine Blood Urine Nitrate Urine Bilirubin Urine Urobilinogen Ur Leukocyte Esterase Urine RBC Urine WBC Ur Epithelial Cells Urine Bacteria 08/23/17 22:05 WBC RBC Hgb Hct MCV MCH MCHC Differential RDW Plt Count MPV Neutrophils % Lymphocytes % Monocytes % Eosinophils % Basophils % Sodium Potassium Chloride Carbon Dioxide Anion Gap BUN Creatinine Est GFR ( Amer) Est GFR (Non-Af Amer) BUN/Creatinine Ratio Glucose Whole Bld Lactic Acid Calcium Urine Source CATH Urine Color YELLOW Urine Clarity CLOUDY H Urine pH 6.0 Ur Specific [place] 1.015 Urine Protein TRACE Urine Glucose (UA) NEGATIVE Urine Ketones NEGATIVE Urine Blood NEGATIVE Urine Nitrate POSITIVE H Urine Bilirubin NEGATIVE Urine Urobilinogen 0.2 Ur Leukocyte Esterase MODERATE H Urine RBC 0-2 Urine WBC 25-50 H Ur Epithelial Cells FEW Urine Bacteria MANY H ED Septic Shock - . Is Septic Shock (SBP<90, OR Lactate>4 mmol\L) present?: No - <6hrs of presentation: Vital Signs: Vital Signs - 8 hr 08/23/17 21:15 Temp 101.2 F HR 98 RR 24 BP 150/68 O2 Sat % 99 ED Reassessment (Disposition) - Reassessment Reassessment Condition:: Unchanged - Diagnosis Diagnosis:: anemia; leukocytosis; urinary tract infection - Patient Disposition Admitted to:: Med/Surg Spoke to:: Wm Steward Admitting Medical Physician:: Wm Steward Condition at Disposition:: Stable, Unchanged ED Discharge Plan - Patient Disposition Admit/Discharge/Transfer: Acute Care w/in this hosp
[2017-08-23] MEDS ORDERED: Sodium Chloride 0.9% 1,000 ML IV ONE (21:43)
[2017-08-23 21:51] LABS: % BASOPHILS 0.2 % (0.0-2.0); % EOSINOPHILS 0.2 % (0.0-5.0); % LYMPHOCYTES 13.2 % (20.0-50.0); % NEUTROPHILS 77.4 % (40.0-80.0); HEMATOCRIT 30.9 % (41.0-60); HEMOGLOBIN 10.1 gm/dL (12-16); MEAN CELL VOLUME 85.9 fl (81-100); MEAN CORPUSCULAR HGB CONC 32.6 pg (28.0-36.0); MEAN PLATELET VOLUME 6.5 fl; MONOCYTE ABSOLUTE 1.3 Th/cmm (0.3-1.0); NEUTROPHILE ABSOLUTE 11.5 Th/cmm (1.8-8.0); PLATELET COUNT 317 Th/cmm (150-400); RED CELL DISTRIBUTION WIDTH 12.2 % (11.5-20.0)
[2017-08-23 21:54] LABS: WHITE BLOOD COUNT 14.8 Th/cmm (4.8-10.8)
[2017-08-23 22:07] LABS: ANION GAP 10.4 (7.0-16.0); BUN - UREA NITROGEN 23 mg/dL (7-25); CALCIUM SERUM 10.3 mg/dL (8.6-10.3); CARBON DIOXIDE 29.7 mEq/L (21.0-31.0); CHLORIDE 93 mEq/L (98-107); GLUCOSE 160 mg/dL (70-105); POTASSIUM SERUM 4.1 mEq/L (3.5-5.1); SODIUM SERUM 129 mEq/L (136-145)
[2017-08-23 22:08] LABS: URINE MICROSCOPIC INDICATED? YES; URINE SOURCE CATH
[2017-08-23 22:12] LABS: URINE BILIRUBIN NEGATIVE (NEGATIVE); URINE BLOOD NEGATIVE (NEGATIVE); URINE GLUCOSE (UA) NEGATIVE (NEGATIVE); URINE KETONE NEGATIVE (NEGATIVE); URINE LEUKOCYTE ESTERASE MODERATE (NEGATIVE); URINE NITRATE POSITIVE (NEGATIVE); URINE PROTEIN TRACE mg/dL (NEGATIVE); URINE UROBILINOGEN 0.2 E.U./dL (0.2 - 1.0)
[2017-08-23 22:13] LABS: URINE CLARITY CLOUDY (CLEAR); URINE COLOR YELLOW
[2017-08-23 22:16] LABS: URINE RBC 0-2 /hpf (0-5)
[2017-08-23 22:17] LABS: URINE WBC 25-50 /hpf (0-5)
[2017-08-23 22:18] LABS: URINE BACTERIA MANY /hpf (NONE SEEN); URINE EPITHELIAL CELLS FEW /lpf (FEW)
[2017-08-23] MEDS ORDERED: cefTRIAXone 1 GM in Sodium Chloride 0.9% 50 ML IV ONE (22:31)
[2017-08-23] MEDS ORDERED: Magnesium Hydroxide (MOM) 30 mL UDC PO PRN (23:45)
[2017-08-23] MEDS ORDERED: Fleet Enema 135 mL RC PRN (23:45)
[2017-08-23] MEDS ORDERED: Ipratropium Neb 0.5 mg/2.5 mL UD HHN PRN (23:49)
[2017-08-23] MEDS ORDERED: Maalox 30 mL Cup PO PRN (23:49)
[2017-08-23] MEDS ORDERED: Albuterol Nebulizer 2.5mg/3mL HHN PRN (23:49)
[2017-08-24 00:54] VITALS: BP 150/68
[2017-08-24] MEDS ORDERED: guaiFENesin 200 MG/10 ML UDC PO PRN (01:01)
[2017-08-24] MEDS ORDERED: Pneumococcal Vaccine 0.5 mL Vial IM ONE (01:31)
[2017-08-24] MEDS: Sodium Chloride 0.9% 1,000 ML IV SCH (01:50)
[2017-08-24] MEDS: INSULIN ASPART, RECOMBINANT 100 UNITS/ML SUBQ SCH ×4 (06:48→22:15)
[2017-08-24] MEDS: Albuterol Nebulizer 2.5mg/3mL HHN SCH ×3 (08:02→18:51)
[2017-08-24] MEDS ORDERED: Probiotic Screen MC PRN (08:30)
--- NOTE | 2017-08-24 08:33 | Diagnostic Imaging Report ---
CHEST X-RAY: AP view INDICATION: Pneumonia COMPARISON: 05/24/2017 FINDINGS: There is elevation of right hemidiaphragm and right basal pleural thickening. Suboptimal lung volumes are are noted. There is no focal consolidation or pleural effusions . The heart size at the upper limits of normal. Atherosclerosis is noted. Degenerative changes of the spine are noted with scoliosis. IMPRESSION: Right basal pleural thickening. No focal consolidation identified. Atherosclerotic vascular disease.
[2017-08-24] MEDS: Fish Oil 1,000 MG SGL PO SCH ×2 (08:49→17:29)
[2017-08-24] MEDS: Ferrous Sulfate 325 MG TAB PO SCH ×2 (08:50→17:29)
[2017-08-24] MEDS: Multivitamin w/ Minerals Tab PO SCH (08:50)
[2017-08-24] MEDS: Lactobacillus Rhamnosus GG 15 Billion CFU CAP.SPRINK PO SCH (08:50)
--- NOTE | 2017-08-24 11:30 | Internal Medicine Prog Note ---
Internal Medicine Subjective - Subjective Service Date: 08/24/17 ([facility] [id number]) Internal Medicine Objective - Results Result Diagrams: 08/23/17 21:45 08/23/17 21:45 Recent Labs: Laboratory Last Values WBC 14.8 Th/cmm (4.8-10.8) H 08/23/17 21:45 RBC 3.60 Mil/cmm (3.80-5.20) L 08/23/17 21:45 Hgb 10.1 gm/dL (12-16) L 08/23/17 21:45 Hct 30.9 % (41.0-60) L 08/23/17 21:45 MCV 85.9 fl (81-100) 08/23/17 21:45 MCH 28.0 pg (27.0-31.0) 08/23/17 21:45 MCHC Differential 32.6 pg (28.0-36.0) 08/23/17 21:45 RDW 12.2 % (11.5-20.0) 08/23/17 21:45 Plt Count 317 Th/cmm (150-400) 08/23/17 21:45 MPV 6.5 fl 08/23/17 21:45 Neutrophils % 77.4 % (40.0-80.0) 08/23/17 21:45 Lymphocytes % 13.2 % (20.0-50.0) L 08/23/17 21:45 Monocytes % 9.0 % (2.0-10.0) 08/23/17 21:45 Eosinophils % 0.2 % (0.0-5.0) 08/23/17 21:45 Basophils % 0.2 % (0.0-2.0) 08/23/17 21:45 Sodium 129 mEq/L (136-145) L 08/23/17 21:45 Potassium 4.1 mEq/L (3.5-5.1) 08/23/17 21:45 Chloride 93 mEq/L (98-107) L 08/23/17 21:45 Carbon Dioxide 29.7 mEq/L (21.0-31.0) 08/23/17 21:45 Anion Gap 10.4 (7.0-16.0) 08/23/17 21:45 BUN 23 mg/dL (7-25) 08/23/17 21:45 Creatinine 1.0 mg/dL (0.6-1.2) 08/23/17 21:45 Est GFR ( Amer) TNP 08/23/17 21:45 Est GFR (Non-Af Amer) TNP 08/23/17 21:45 BUN/Creatinine Ratio 23.0 08/23/17 21:45 Glucose 160 mg/dL (70-105) H 08/23/17 21:45 POC Glucose 103 MG/DL (70 - 105) 08/24/17 06:47 Whole Bld Lactic Acid 0.94 mmol/L (0.60-1.99) 08/23/17 21:45 Calcium 10.3 mg/dL (8.6-10.3) 08/23/17 21:45 Urine Source CATH 08/23/17 22:05 Urine Color YELLOW 08/23/17 22:05 Urine Clarity CLOUDY (CLEAR) H 08/23/17 22:05 Urine pH 6.0 (4.6 - 8.0) 08/23/17 22:05 Ur Specific [place] 1.015 (1.005-1.030) 08/23/17 22:05 Urine Protein TRACE mg/dL (NEGATIVE) 08/23/17 22:05 Urine Glucose (UA) NEGATIVE mg/dL (NEGATIVE) 08/23/17 22:05 Urine Ketones NEGATIVE mg/dL (NEGATIVE) 08/23/17 22:05 Urine Blood NEGATIVE (NEGATIVE) 08/23/17 22:05 Urine Nitrate POSITIVE (NEGATIVE) H 08/23/17 22:05 Urine Bilirubin NEGATIVE (NEGATIVE) 08/23/17 22:05 Urine Urobilinogen 0.2 E.U./dL (0.2 - 1.0) 08/23/17 22:05 Ur Leukocyte Esterase MODERATE (NEGATIVE) H 08/23/17 22:05 Urine RBC 0-2 /hpf (0-5) 08/23/17 22:05 Urine WBC 25-50 /hpf (0-5) H 08/23/17 22:05 Ur Epithelial Cells FEW /lpf (FEW) 08/23/17 22:05 Urine Bacteria MANY /hpf (NONE SEEN) H 08/23/17 22:05 - Physical Exam Vitals and I&O: Vital Signs Temp 97.9 F 08/24/17 07:52 Pulse 89 08/24/17 08:49 Resp 18 08/24/17 08:02 BP 129/82 08/24/17 08:49 Pulse Ox 97 08/24/17 08:02 Intake & Output 08/23/17 08/24/17 08/24/17 18:59 06:59 18:59 Intake Total 2300 Balance 2300 Weight (lbs) 115 lb Intake: Intake, IV Amount 2050 Sodium Chloride 0.9% 1, 1000 000 ml @ Wide Open IV . Q0M ONE Rx#:[id number] Oral 250 Other: # Voids 3 # Bowel Movements 0 Weight Source Bedscale Active Medications: Current Medications Acetaminophen (Tylenol) 650 mg PO Q4H PRN PRN Reason: Pain Or Fever above 101 Stop: 10/22/17 23:49 Al Hydrox/Mg Hydrox/Simethicone (Maalox) 30 ml PO Q6H PRN PRN Reason: Dyspepsia Stop: 10/22/17 23:48 Albuterol Sulfate (Albuterol 2.5mg/3ml Neb Ud) 2.5 mg HHN BID [facility] Stop: 10/23/17 08:59 Last Admin: 08/24/17 08:02 Dose: 2.5 mg Albuterol Sulfate (Albuterol 2.5mg/3ml Neb Ud) 2.5 mg HHN Q2HRT PRN PRN Reason: Shortness of Breath or Wheeze Stop: 10/22/17 23:48 Ascorbic Acid (Vitamin C) 500 mg PO BID [facility] Stop: 10/23/17 08:59 Last Admin: 08/24/17 08:50 Dose: 500 mg Bisacodyl (Dulcolax 10 Mg Supp) 10 mg RC DAILY PRN PRN Reason: Constipation Stop: 10/22/17 23:44 Calcium Acetate (Phoslo) 667 mg PO TID [facility] Stop: 10/23/17 08:59 Last Admin: 08/24/17 08:50 Dose: 667 mg Cyanocobalamin (Vitamin B12) 1,000 mcg PO DAILY [facility] Stop: 10/23/17 08:59 Last Admin: 08/24/17 08:50 Dose: 1,000 mcg Famotidine (Pepcid) 20 mg PO BID [facility] Stop: 10/23/17 08:59 Last Admin: 08/24/17 08:48 Dose: 20 mg Ferrous Sulfate (Iron) 325 mg PO BID [facility] Stop: 10/23/17 08:59 Last Admin: 08/24/17 08:50 Dose: 325 mg Fish Oil ([place] 3) 1,000 mg PO BID [facility] Stop: 10/23/17 08:59 Last Admin: 08/24/17 08:49 Dose: 1,000 mg Guaifenesin (Robitussin) 100 mg PO Q4H PRN PRN Reason: Congestion Stop: 10/23/17 01:00 Hydralazine HCl (Apresoline) 100 mg PO BID [facility] Stop: 10/23/17 08:59 Last Admin: 08/24/17 08:49 Dose: 100 mg Cefepime HCl 1 gm/ Dextrose 50 mls @ 100 mls/hr IV Q12HR [facility] Stop: 10/23/17 08:59 Last Admin: 08/24/17 09:25 Dose: 100 mls/hr Sodium Chloride (Nacl 0.9%) 1,000 mls @ 80 mls/hr IV .[id number] [facility] Stop: 10/22/17 23:44 Last Admin: 08/24/17 01:50 Dose: 80 mls/hr Insulin Aspart (Novolog) 0 units SUBQ ACHS [facility]; Protocol Stop: 10/23/17 07:29 Last Admin: 08/24/17 06:48 Dose: Not Given Ipratropium [place] (Atrovent Neb 0.5mg/2.5ml) 0.5 mg HHN Q2HRT PRN PRN Reason: Shortness of Breath or Wheeze Stop: 10/22/17 23:48 Lactobacillus Rhamnosus (Culturelle 15b) 1 each PO DAILY [facility] Stop: 10/23/17 08:59 Last Admin: 08/24/17 08:50 Dose: 1 each Lisinopril (Zestril) 20 mg PO BID [facility] Stop: 10/23/17 08:59 Last Admin: 08/24/17 08:49 Dose: 20 mg Magnesium Hydroxide (Milk Of Magnesia) 30 ml PO DAILY PRN PRN Reason: Constipation Stop: 10/22/17 23:44 Metformin HCl (Glucophage) 500 mg PO QDPC [facility] Stop: 10/23/17 08:29 Last Admin: 08/24/17 08:48 Dose: 500 mg Miscellaneous (Probiotic Screen) 1 ea MC PRN PRN PRN Reason: PROTOCOL Stop: 10/23/17 08:29 Ondansetron HCl (Zofran) 4 mg IV Q8H PRN PRN Reason: Nausea / Vomiting Stop: 10/22/17 23:49 Risperidone (Risperdal) 1 mg PO HS [facility]; Protocol Stop: 10/23/17 20:59 Sodium Phosphate (Fleet Enema) 135 ml RC Q72H PRN PRN Reason: Constipation Stop: 10/22/17 23:44 Vitamin D (Vitamin D) 800 iu PO DAILY [facility] Stop: 10/23/17 08:59 Last Admin: 08/24/17 08:48 Dose: 800 iu - Procedures Procedures: Procedures Procedure Code Date ASPIR CURETT UTERUS NEC 69.59 10/29/11 BIOPSY OF CERVIX 65635 09/05/94 CERVICAL LES DESTRUC NEC 67.39 09/05/94 CONTINUOUS INVASIVE MECHANICAL VENTILATION <96 CONSEC HRS 96.71 09/01/14 D & C NEC 69.09 09/05/94 DILATION AND CURETTAGE 49909 10/29/11 EMERGENCY DEPT VISIT 52483 05/28/11 GENITAL SURGERY PROCEDURE 52220 09/05/94 HYMENORRHAPHY 70.76 09/05/94 HYMENOTOMY 70.11 09/05/94 INCISION OF HYMEN 09842 09/05/94 LAPAROSCOPIC CHOLECYSTECTOMY 51.23 11/29/06 LAPAROSCOPIC CHOLECYSTECTOMY 02884 11/29/06 OTHER OPEN UMBILICAL HERNIORRHAPHY 53.49 11/29/06 RPR UMBIL JIHAN BLOCK > 5 YR 51401 11/29/06
--- NOTE | 2017-08-24 14:12 | History & Physical ---
ADMIT DATE: 08/24/2017 DICTATED FOR: Dr. Wm Steward CHIEF COMPLAINT: Fever. HISTORY OF PRESENT ILLNESS: This is a 77-year-old female who is a resident of [facility] who was admitted here to the telemetry unit due to a temperature of 102.3 and oxygen saturation of 91%. For further management, the patient is now admitted to the telemetry unit. PAST MEDICAL HISTORY: Hypertension, diabetes, asthma, COPD, history of CVA, TIA, seizure, dementia, gastritis, colitis, umbilical hernia, anemia, hydrocephalus. SOCIAL HISTORY: The patient is a long term resident requiring 24-hour nursing care. REVIEW OF SYSTEMS: Unable to obtain at this time. PHYSICAL EXAMINATION: GENERAL: Elderly female, awake, alert, in no apparent distress. VITAL SIGNS: Temperature 97.9, heart rate 89, blood pressure 129/82, respiration 18, O2 100%. HEENT: Head; normocephalic, atraumatic. NECK: Supple. No mass. LUNGS: Few rhonchi heard. ABDOMEN: Soft, nontender. LABORATORY DATA: WBC 14.8, H and H 10.1/30.9, platelets of 317. Sodium 129, potassium 4.1, chloride 93, BUN 23, creatinine 1.0. The patient had a urinalysis done, positive for UTI. DIAGNOSTIC: The patient had a chest x-ray done. Impression is thickening, no focal consolidation identified, atherosclerotic vascular disease. ASSESSMENT: Sepsis, acute UTI, acute febrile illness, hypertension, type 2 diabetes, asthma, COPD, history of CVA, seizures and dementia. PLAN: Keep the patient on IV antibiotics with cefepime, IV fluids for hydration, Accu-Chek with sliding scale. We will continue to follow the patient. JOB# [id number]
[2017-08-25 05:27] LABS: % BASOPHILS 0.2 % (0.0-2.0); % EOSINOPHILS 0.3 % (0.0-5.0); % LYMPHOCYTES 11.7 % (20.0-50.0); % MONOCYTES 9.1 % (2.0-10.0); % NEUTROPHILS 78.7 % (40.0-80.0); HEMATOCRIT 25.5 % (41.0-60); HEMOGLOBIN 8.4 gm/dL (12-16); LYMPHOCYTE ABSOLUTE 1.7 Th/cmm (1.5-3.0); MEAN CELL VOLUME 83.9 fl (81-100); MEAN CORPUSCULAR HEMOGLOBIN 27.8 pg (27.0-31.0); MEAN CORPUSCULAR HGB CONC 33.1 pg (28.0-36.0); MEAN PLATELET VOLUME 6.8 fl; MONOCYTE ABSOLUTE 1.3 Th/cmm (0.3-1.0); NEUTROPHILE ABSOLUTE 11.6 Th/cmm (1.8-8.0); PLATELET COUNT 260 Th/cmm (150-400); RED BLOOD COUNT 3.04 Mil/cmm (3.80-5.20); RED CELL DISTRIBUTION WIDTH 12.3 % (11.5-20.0)
[2017-08-25 05:34] LABS: WHITE BLOOD COUNT 14.6 Th/cmm (4.8-10.8)
[2017-08-25 05:42] LABS: ANION GAP 9.1 (7.0-16.0); BUN - UREA NITROGEN 11 mg/dL (7-25); CALCIUM SERUM 8.8 mg/dL (8.6-10.3); CARBON DIOXIDE 28.5 mEq/L (21.0-31.0); CHLORIDE 95 mEq/L (98-107); CREATININE - SERUM 0.6 mg/dL (0.6-1.2); GLUCOSE 127 mg/dL (70-105); POTASSIUM SERUM 3.6 mEq/L (3.5-5.1); SODIUM SERUM 129 mEq/L (136-145)
[2017-08-25] MEDS: INSULIN ASPART, RECOMBINANT 100 UNITS/ML SUBQ SCH ×4 (07:11→21:33)
[2017-08-25] MEDS: Albuterol Nebulizer 2.5mg/3mL HHN SCH ×2 (07:38→19:00)
[2017-08-25] MEDS: Sodium Chloride 0.9% 1,000 ML IV SCH ×2 (09:35→23:25)
[2017-08-25] MEDS: Lactobacillus Rhamnosus GG 15 Billion CFU CAP.SPRINK PO SCH (09:36)
[2017-08-25] MEDS: Multivitamin w/ Minerals Tab PO SCH (09:36)
[2017-08-25] MEDS: Ferrous Sulfate 325 MG TAB PO SCH ×2 (09:37→18:21)
[2017-08-25] MEDS: Fish Oil 1,000 MG SGL PO SCH ×2 (09:37→18:21)
--- NOTE | 2017-08-25 12:32 | Internal Medicine Prog Note ---
Internal Medicine Subjective - Subjective Service Date: 08/25/17 Patient seen and examined:: with staff Patient is:: awake, non-verbal Per staff patient has:: tolerating meds Internal Medicine Objective - Results Result Diagrams: 08/25/17 04:45 08/25/17 04:45 Recent Labs: Laboratory Last Values WBC 14.6 Th/cmm (4.8-10.8) H 08/25/17 04:45 RBC 3.04 Mil/cmm (3.80-5.20) L 08/25/17 04:45 Hgb 8.4 gm/dL (12-16) L 08/25/17 04:45 Hct 25.5 % (41.0-60) L 08/25/17 04:45 MCV 83.9 fl (81-100) 08/25/17 04:45 MCH 27.8 pg (27.0-31.0) 08/25/17 04:45 MCHC Differential 33.1 pg (28.0-36.0) 08/25/17 04:45 RDW 12.3 % (11.5-20.0) 08/25/17 04:45 Plt Count 260 Th/cmm (150-400) 08/25/17 04:45 MPV 6.8 fl 08/25/17 04:45 Neutrophils % 78.7 % (40.0-80.0) 08/25/17 04:45 Lymphocytes % 11.7 % (20.0-50.0) L 08/25/17 04:45 Monocytes % 9.1 % (2.0-10.0) 08/25/17 04:45 Eosinophils % 0.3 % (0.0-5.0) 08/25/17 04:45 Basophils % 0.2 % (0.0-2.0) 08/25/17 04:45 Sodium 129 mEq/L (136-145) L 08/25/17 04:45 Potassium 3.6 mEq/L (3.5-5.1) 08/25/17 04:45 Chloride 95 mEq/L (98-107) L 08/25/17 04:45 Carbon Dioxide 28.5 mEq/L (21.0-31.0) 08/25/17 04:45 Anion Gap 9.1 (7.0-16.0) 08/25/17 04:45 BUN 11 mg/dL (7-25) 08/25/17 04:45 Creatinine 0.6 mg/dL (0.6-1.2) 08/25/17 04:45 Est GFR ( Amer) TNP 08/25/17 04:45 Est GFR (Non-Af Amer) TNP 08/25/17 04:45 BUN/Creatinine Ratio 18.3 08/25/17 04:45 Glucose 127 mg/dL (70-105) H 08/25/17 04:45 POC Glucose 180 MG/DL (70 - 105) H 08/25/17 11:54 Whole Bld Lactic Acid 0.94 mmol/L (0.60-1.99) 08/23/17 21:45 Calcium 8.8 mg/dL (8.6-10.3) 08/25/17 04:45 Urine Source CATH 08/23/17 22:05 Urine Color YELLOW 08/23/17 22:05 Urine Clarity CLOUDY (CLEAR) H 08/23/17 22:05 Urine pH 6.0 (4.6 - 8.0) 08/23/17 22:05 Ur Specific [place] 1.015 (1.005-1.030) 08/23/17 22:05 Urine Protein TRACE mg/dL (NEGATIVE) 08/23/17 22:05 Urine Glucose (UA) NEGATIVE mg/dL (NEGATIVE) 08/23/17 22:05 Urine Ketones NEGATIVE mg/dL (NEGATIVE) 08/23/17 22:05 Urine Blood NEGATIVE (NEGATIVE) 08/23/17 22:05 Urine Nitrate POSITIVE (NEGATIVE) H 08/23/17 22:05 Urine Bilirubin NEGATIVE (NEGATIVE) 08/23/17 22:05 Urine Urobilinogen 0.2 E.U./dL (0.2 - 1.0) 08/23/17 22:05 Ur Leukocyte Esterase MODERATE (NEGATIVE) H 08/23/17 22:05 Urine RBC 0-2 /hpf (0-5) 08/23/17 22:05 Urine WBC 25-50 /hpf (0-5) H 08/23/17 22:05 Ur Epithelial Cells FEW /lpf (FEW) 08/23/17 22:05 Urine Bacteria MANY /hpf (NONE SEEN) H 08/23/17 22:05 - Physical Exam Vitals and I&O: Vital Signs Temp 98.0 F 08/25/17 08:00 Pulse 79 08/25/17 09:36 Resp 18 08/25/17 08:00 BP 140/65 08/25/17 09:36 Pulse Ox 99 08/25/17 08:00 Intake & Output 08/24/17 08/25/17 08/25/17 18:59 06:59 18:59 Intake Total 1770.000 75 Balance 1770.000 75 Weight (lbs) 115 lb 115 lb Intake: Intake, IV Amount 1050.000 50 Cefepime 1 gm In Dextrose 50.000 50 5% 50 ml @ 100 mls/hr IV Q12HR [facility] Rx#:[id number] Sodium Chloride 0.9% 1, 1000 000 ml @ 80 mls/hr IV . [id number] [facility] Rx#:[id number] Oral 720 25 Other: # Voids 3 3 # Bowel Movements 0 0 Weight Source Estimated Bedscale Active Medications: Current Medications Acetaminophen (Tylenol) 650 mg PO Q4H PRN PRN Reason: Pain Or Fever above 101 Stop: 10/22/17 23:49 Al Hydrox/Mg Hydrox/Simethicone (Maalox) 30 ml PO Q6H PRN PRN Reason: Dyspepsia Stop: 10/22/17 23:48 Albuterol Sulfate (Albuterol 2.5mg/3ml Neb Ud) 2.5 mg HHN BID [facility] Stop: 10/23/17 08:59 Last Admin: 08/24/17 18:51 Dose: 2.5 mg Albuterol Sulfate (Albuterol 2.5mg/3ml Neb Ud) 2.5 mg HHN Q2HRT PRN PRN Reason: Shortness of Breath or Wheeze Stop: 10/22/17 23:48 Ascorbic Acid (Vitamin C) 500 mg PO BID [facility] Stop: 10/23/17 08:59 Last Admin: 08/25/17 09:36 Dose: 500 mg Bisacodyl (Dulcolax 10 Mg Supp) 10 mg RC DAILY PRN PRN Reason: Constipation Stop: 10/22/17 23:44 Calcium Acetate (Phoslo) 667 mg PO TID [facility] Stop: 10/23/17 08:59 Last Admin: 08/25/17 09:36 Dose: 667 mg Cyanocobalamin (Vitamin B12) 1,000 mcg PO DAILY [facility] Stop: 10/23/17 08:59 Last Admin: 08/25/17 09:37 Dose: 1,000 mcg Famotidine (Pepcid) 20 mg PO BID [facility] Stop: 10/23/17 08:59 Last Admin: 08/25/17 09:37 Dose: 20 mg Ferrous Sulfate (Iron) 325 mg PO BID [facility] Stop: 10/23/17 08:59 Last Admin: 08/25/17 09:37 Dose: 325 mg Fish Oil ([place] 3) 1,000 mg PO BID [facility] Stop: 10/23/17 08:59 Last Admin: 08/25/17 09:37 Dose: 1,000 mg Guaifenesin (Robitussin) 100 mg PO Q4H PRN PRN Reason: Congestion Stop: 10/23/17 01:00 Hydralazine HCl (Apresoline) 100 mg PO BID [facility] Stop: 10/23/17 08:59 Last Admin: 08/25/17 09:35 Dose: 100 mg Cefepime HCl 1 gm/ Dextrose 50 mls @ 100 mls/hr IV Q12HR [facility] Stop: 10/23/17 08:59 Last Admin: 08/25/17 09:34 Dose: 100 mls/hr Sodium Chloride (Nacl 0.9%) 1,000 mls @ 80 mls/hr IV .[id number] [facility] Stop: 10/22/17 23:44 Last Admin: 08/25/17 09:35 Dose: 80 mls/hr Insulin Aspart (Novolog) 0 units SUBQ ACHS [facility]; Protocol Stop: 10/23/17 07:29 Last Admin: 08/25/17 12:28 Dose: Not Given Ipratropium [place] (Atrovent Neb 0.5mg/2.5ml) 0.5 mg HHN Q2HRT PRN PRN Reason: Shortness of Breath or Wheeze Stop: 10/22/17 23:48 Lactobacillus Rhamnosus (Culturelle 15b) 1 each PO DAILY [facility] Stop: 10/23/17 08:59 Last Admin: 08/25/17 09:36 Dose: 1 each Lisinopril (Zestril) 20 mg PO BID [facility] Stop: 10/23/17 08:59 Last Admin: 06/12/18 09:36 Dose: 20 mg Magnesium Hydroxide (Milk Of Magnesia) 30 ml PO DAILY PRN PRN Reason: Constipation Stop: 10/22/17 23:44 Metformin HCl (Glucophage) 500 mg PO QDPC [facility] Stop: 10/23/17 08:29 Last Admin: 08/25/17 09:36 Dose: 500 mg Miscellaneous (Probiotic Screen) 1 ea MC PRN PRN PRN Reason: PROTOCOL Stop: 10/23/17 08:29 Ondansetron HCl (Zofran) 4 mg IV Q8H PRN PRN Reason: Nausea / Vomiting Stop: 10/22/17 23:49 Risperidone (Risperdal) 1 mg PO HS [facility]; Protocol Stop: 10/23/17 20:59 Last Admin: 08/24/17 22:33 Dose: 1 mg Sodium Phosphate (Fleet Enema) 135 ml RC Q72H PRN PRN Reason: Constipation Stop: 10/22/17 23:44 Vitamin D (Vitamin D) 800 iu PO DAILY [facility] Stop: 10/23/17 08:59 Last Admin: 08/25/17 09:36 Dose: 800 iu General: weak HEENT: NC/AT, PERRLA Neck: Supple Lungs: CTAB Cardiovascular: RRR, Normal S1, Normal S2, without murmur Abdomen: soft, non-tender, non-distended, positive bowel sound - Procedures Procedures: Procedures Procedure Code Date ASPIR CURETT UTERUS NEC 69.59 10/29/11 BIOPSY OF CERVIX 33370 09/05/94 CERVICAL LES DESTRUC NEC 67.39 09/05/94 CONTINUOUS INVASIVE MECHANICAL VENTILATION <96 CONSEC HRS 96.71 09/01/14 D & C NEC 69.09 09/05/94 DILATION AND CURETTAGE 18638 10/29/11 EMERGENCY DEPT VISIT 57213 05/28/11 GENITAL SURGERY PROCEDURE 18367 09/05/94 HYMENORRHAPHY 70.76 09/05/94 HYMENOTOMY 70.11 09/05/94 INCISION OF HYMEN 56288 09/05/94 LAPAROSCOPIC CHOLECYSTECTOMY 51.23 11/29/06 LAPAROSCOPIC CHOLECYSTECTOMY 09651 11/29/06 OTHER OPEN UMBILICAL HERNIORRHAPHY 53.49 11/29/06 RPR UMBIL JIHAN BLOCK > 5 YR 12368 11/29/06 Internal Medicine Assmt/Plan - Assessment Assessment: sepsis acute uti acute febrile illness MRSA nares htn dm2 asthma copd hx cva seizures dementia - Plan Plan: continue ivabx will add bactroban follow up labs in am seizure precautions continue current plan of care Nutritional Asmnt/Malnutr-PDOC - Dietary Evaluation Malnutrition Findings (Please click <Entered> for more info): Nutritional Asmnt/Malnutrition Start: 08/24/17 17: 12 Text: Status: Complete Freq: Protocol: Document 08/24/17 17:12 [email or web address] (Rec: 08/24/17 17:19 MERCED [id number]) Nutritional Asmnt/Malnutrition Patient General Information Nutritional Screening High Risk Diagnosis sepsis, UTI, fever Pertinent Medical Hx/Surgical Hx HTN, DM, asthma, COPD, CVA TIA , seizure dmentia, gastritis, colitis, umbilical hernia, anemia, hydrocephalus Subjective Information Pt seen sleeping in bed at time of visit. Per nurse, pt is alert x1. Current Diet Order/ Nutrition Support pureed Pertinent Medications vit C, vit B12, iron, omega 3, novolog, culturelle, glucophage, zofran, vit D, nacl 0.9% Pertinent Labs 08/23 Na 129, Cl 93, glucose 160 08/24 POC 103-194 Nutritional Hx/Data Height 4 ft 10 in Height (Calculated Centimeters) 147.3 Current Weight (lbs) 115 lb Weight (Calculated Kilograms) 52.2 Weight (Calculated Grams) 89921.1 Fields Body Weight 96 Body Mass Index (BMI) 24.0 Weight Status Approriate GI Symptoms GI Symptoms None Last BM none Difficult in: None Skin Integrity/Comment: intact Estimated Nutritional Goals BEE in Kcals: Using Current wt Calories/Kcals/Kg 25-30 Kcals Calculated 5414-0668 Protein: Using Current wt Protein g/k.2 Protein Calculated 62 Fluid: ml 1300-1560ml (1ml/kcal) Nutritional Problem 2. Problem Problem increased nutrition needs ( calorie and protein) Etiology increased nutrition demand Signs/Symptoms: dx of sepsis 1. Problem Problem altered nutrition related lab Etiology hx of DM Signs/Symptoms: glucose 160` Malnutrition Alert Is there a minimum of two criteria No selected? Query Text:Check all the applicable criteria. A minimum of two criteria are recommended for diagnosis of either severe or non-severe malnutrition. Malnutrition Related to Morbid Obesity Malnutrition related to morbid obesity No Intervention/Recommendation Comments 1. Continue with pureed diet as ordered. If glucose continue high, [facility]. 2. Monitor PO intake, wt, labs and skin integrity 3. F/U as high risk in 2-3 days, 08/26-08/27 Expected Outcomes/Goals Expected Outcomes/Goals 1. PO intake to meet at least 75% of nutritional needs. 2. Wt stability, skin to remain intact, labs to approach WNL.
[2017-08-26 06:24] LABS: ANION GAP 9.4 (7.0-16.0); BUN - UREA NITROGEN 19 mg/dL (7-25); CALCIUM SERUM 8.7 mg/dL (8.6-10.3); CARBON DIOXIDE 27.4 mEq/L (21.0-31.0); CHLORIDE 96 mEq/L (98-107); CREATININE - SERUM 0.8 mg/dL (0.6-1.2); GLUCOSE 105 mg/dL (70-105); POTASSIUM SERUM 3.8 mEq/L (3.5-5.1); SODIUM SERUM 129 mEq/L (136-145)
[2017-08-26 06:32] LABS: % BASOPHILS 0.2 % (0.0-2.0); % EOSINOPHILS 0.7 % (0.0-5.0); % LYMPHOCYTES 7.8 % (20.0-50.0); % MONOCYTES 3.3 % (2.0-10.0); EOSINOPHILE ABSOLUTE 0.1 Th/cmm (0.1-0.4); HEMATOCRIT 26.8 % (41.0-60); HEMOGLOBIN 9.1 gm/dL (12-16); LYMPHOCYTE ABSOLUTE 1.1 Th/cmm (1.5-3.0); MEAN CELL VOLUME 82.7 fl (81-100); MEAN CORPUSCULAR HEMOGLOBIN 28.2 pg (27.0-31.0); MEAN CORPUSCULAR HGB CONC 34.1 pg (28.0-36.0); MEAN PLATELET VOLUME 6.9 fl; MONOCYTE ABSOLUTE 0.5 Th/cmm (0.3-1.0); PLATELET COUNT 249 Th/cmm (150-400); RED BLOOD COUNT 3.24 Mil/cmm (3.80-5.20); RED CELL DISTRIBUTION WIDTH 12.5 % (11.5-20.0)
[2017-08-26 06:34] LABS: WHITE BLOOD COUNT 13.7 Th/cmm (4.8-10.8)
[2017-08-26] MEDS: Albuterol Nebulizer 2.5mg/3mL HHN SCH ×3 (06:41→19:18)
[2017-08-26] MEDS: INSULIN ASPART, RECOMBINANT 100 UNITS/ML SUBQ SCH ×4 (07:37→21:46)
[2017-08-26] MEDS: Fish Oil 1,000 MG SGL PO SCH ×2 (10:04→17:56)
[2017-08-26] MEDS: Ferrous Sulfate 325 MG TAB PO SCH ×2 (10:05→17:57)
[2017-08-26] MEDS: Lactobacillus Rhamnosus GG 15 Billion CFU CAP.SPRINK PO SCH (10:05)
[2017-08-26] MEDS: Multivitamin w/ Minerals Tab PO SCH (10:05)
[2017-08-26] MEDS: Sodium Chloride 0.9% 1,000 ML IV SCH (11:24)
--- NOTE | 2017-08-26 15:31 | Internal Medicine Prog Note ---
Internal Medicine Subjective - Subjective Service Date: 08/26/17 Patient seen and examined:: with staff Patient is:: awake, non-verbal Per staff patient has:: tolerating meds Internal Medicine Objective - Results Result Diagrams: 08/26/17 04:45 08/26/17 04:45 Recent Labs: Laboratory Last Values WBC 13.7 Th/cmm (4.8-10.8) H 08/26/17 04:45 RBC 3.24 Mil/cmm (3.80-5.20) L 08/26/17 04:45 Hgb 9.1 gm/dL (12-16) L 08/26/17 04:45 Hct 26.8 % (41.0-60) L 08/26/17 04:45 MCV 82.7 fl (81-100) 08/26/17 04:45 MCH 28.2 pg (27.0-31.0) 08/26/17 04:45 MCHC Differential 34.1 pg (28.0-36.0) 08/26/17 04:45 RDW 12.5 % (11.5-20.0) 08/26/17 04:45 Plt Count 249 Th/cmm (150-400) 08/26/17 04:45 MPV 6.9 fl 08/26/17 04:45 Neutrophils % 88.0 % (40.0-80.0) H 08/26/17 04:45 Lymphocytes % 7.8 % (20.0-50.0) L 08/26/17 04:45 Monocytes % 3.3 % (2.0-10.0) 08/26/17 04:45 Eosinophils % 0.7 % (0.0-5.0) 08/26/17 04:45 Basophils % 0.2 % (0.0-2.0) 08/26/17 04:45 Sodium 129 mEq/L (136-145) L 08/26/17 04:45 Potassium 3.8 mEq/L (3.5-5.1) 08/26/17 04:45 Chloride 96 mEq/L (98-107) L 08/26/17 04:45 Carbon Dioxide 27.4 mEq/L (21.0-31.0) 08/26/17 04:45 Anion Gap 9.4 (7.0-16.0) 08/26/17 04:45 BUN 19 mg/dL (7-25) 08/26/17 04:45 Creatinine 0.8 mg/dL (0.6-1.2) 08/26/17 04:45 Est GFR ( Amer) TNP 08/26/17 04:45 Est GFR (Non-Af Amer) TNP 08/26/17 04:45 BUN/Creatinine Ratio 23.8 08/26/17 04:45 Glucose 105 mg/dL (70-105) 08/26/17 04:45 POC Glucose 259 MG/DL (70 - 105) H 08/26/17 11:26 Whole Bld Lactic Acid 0.94 mmol/L (0.60-1.99) 08/23/17 21:45 Calcium 8.7 mg/dL (8.6-10.3) 08/26/17 04:45 Urine Source CATH 08/23/17 22:05 Urine Color YELLOW 08/23/17 22:05 Urine Clarity CLOUDY (CLEAR) H 08/23/17 22:05 Urine pH 6.0 (4.6 - 8.0) 08/23/17 22:05 Ur Specific [place] 1.015 (1.005-1.030) 08/23/17 22:05 Urine Protein TRACE mg/dL (NEGATIVE) 08/23/17 22:05 Urine Glucose (UA) NEGATIVE mg/dL (NEGATIVE) 08/23/17 22:05 Urine Ketones NEGATIVE mg/dL (NEGATIVE) 08/23/17 22:05 Urine Blood NEGATIVE (NEGATIVE) 08/23/17 22:05 Urine Nitrate POSITIVE (NEGATIVE) 08/23/17 22:05 Urine Bilirubin NEGATIVE (NEGATIVE) 08/23/17 22:05 Urine Urobilinogen 0.2 E.U./dL (0.2 - 1.0) 08/23/17 22:05 Ur Leukocyte Esterase MODERATE (NEGATIVE) H 08/23/17 22:05 Urine RBC 0-2 /hpf (0-5) 08/23/17 22:05 Urine WBC 25-50 /hpf (0-5) H 08/23/17 22:05 Ur Epithelial Cells FEW /lpf (FEW) 08/23/17 22:05 Urine Bacteria MANY /hpf (NONE SEEN) H 08/23/17 22:05 - Physical Exam Vitals and I&O: Vital Signs Temp 97.7 F 08/26/17 12:00 Pulse 87 08/26/17 12:00 Resp 18 08/26/17 12:00 BP 125/55 08/26/17 12:00 Pulse Ox 100 08/26/17 12:00 Intake & Output 08/25/17 08/26/17 08/26/17 18:59 06:59 18:59 Intake Total 1070 1170 1108.667 Balance 1070 1170 1108.667 Weight (lbs) 126 lb 9.6 oz 127 lb 11.2 oz Intake: Intake, IV Amount 50 1050 1108.667 Cefepime 1 gm In Dextrose 50 50 5% 50 ml @ 100 mls/hr IV Q12HR [facility] Rx#:[id number] Piperacillin Sodium/ 100 Tazobact 4.5 gm In Sodium Chloride 0.9% 100 ml @ 100 mls/hr IV Q8HR [facility] Rx #:[id number] Sodium Chloride 0.9% 1, 1000 958.667 000 ml @ 80 mls/hr IV . [id number] [facility] Rx#:[id number] Oral 1020 120 Other: # Voids 3 2 # Bowel Movements 1 2 Stool Characteristics Soft Soft Soft Green Green Weight Source Bedscale Bedscale Active Medications: Current Medications Acetaminophen (Tylenol) 650 mg PO Q4H PRN PRN Reason: Pain Or Fever above 101 Stop: 10/22/17 23:49 Last Admin: 08/25/17 15:38 Dose: 650 mg Al Hydrox/Mg Hydrox/Simethicone (Maalox) 30 ml PO Q6H PRN PRN Reason: Dyspepsia Stop: 10/22/17 23:48 Albuterol Sulfate (Albuterol 2.5mg/3ml Neb Ud) 2.5 mg HHN BID [facility] Stop: 10/23/17 08:59 Last Admin: 08/26/17 09:00 Dose: Not Given Albuterol Sulfate (Albuterol 2.5mg/3ml Neb Ud) 2.5 mg HHN Q2HRT PRN PRN Reason: Shortness of Breath or Wheeze Stop: 10/22/17 23:48 Ascorbic Acid (Vitamin C) 500 mg PO BID [facility] Stop: 10/23/17 08:59 Last Admin: 08/26/17 10:05 Dose: 500 mg Bisacodyl (Dulcolax 10 Mg Supp) 10 mg RC DAILY PRN PRN Reason: Constipation Stop: 10/22/17 23:44 Calcium Acetate (Phoslo) 667 mg PO TID [facility] Stop: 10/23/17 08:59 Last Admin: 08/26/17 14:24 Dose: 667 mg Cyanocobalamin (Vitamin B12) 1,000 mcg PO DAILY [facility] Stop: 10/23/17 08:59 Last Admin: 08/26/17 10:06 Dose: 1,000 mcg Famotidine (Pepcid) 20 mg PO BID [facility] Stop: 10/23/17 08:59 Last Admin: 08/26/17 10:05 Dose: 20 mg Ferrous Sulfate (Iron) 325 mg PO BID [facility] Stop: 10/23/17 08:59 Last Admin: 08/26/17 10:05 Dose: 325 mg Fish Oil ([place] 3) 1,000 mg PO BID [facility] Stop: 10/23/17 08:59 Last Admin: 08/26/17 10:04 Dose: 1,000 mg Guaifenesin (Robitussin) 100 mg PO Q4H PRN PRN Reason: Congestion Stop: 10/23/17 01:00 Hydralazine HCl (Apresoline) 100 mg PO BID [facility] Stop: 10/23/17 08:59 Last Admin: 08/26/17 10:04 Dose: Not Given Sodium Chloride (Nacl 0.9%) 1,000 mls @ 80 mls/hr IV .[id number] [facility] Stop: 10/22/17 23:44 Last Admin: 08/26/17 11:24 Dose: 80 mls/hr Piperacillin Sod/Tazobactam (Sod 4.5 gm/ Sodium Chloride) 100 mls @ 100 mls/hr IV Q8HR [facility] Stop: 10/25/17 12:59 Last Infusion: 08/26/17 15:14 Dose: Infused Insulin Aspart (Novolog) 0 units SUBQ ACHS [facility]; Protocol Stop: 10/23/17 07:29 Last Admin: 08/26/17 12:18 Dose: 4 units Ipratropium [place] (Atrovent Neb 0.5mg/2.5ml) 0.5 mg HHN Q2HRT PRN PRN Reason: Shortness of Breath or Wheeze Stop: 08/09/18 23:48 Lactobacillus Rhamnosus (Culturelle 15b) 1 each PO DAILY [facility] Stop: 10/23/17 08:59 Last Admin: 08/26/17 10:05 Dose: 1 each Lisinopril (Zestril) 20 mg PO BID [facility] Stop: 10/23/17 08:59 Last Admin: 08/26/17 10:07 Dose: Not Given Magnesium Hydroxide (Milk Of Magnesia) 30 ml PO DAILY PRN PRN Reason: Constipation Stop: 10/22/17 23:44 Metformin HCl (Glucophage) 500 mg PO QDPC [facility] Stop: 10/23/17 08:29 Last Admin: 08/26/17 10:05 Dose: 500 mg Miscellaneous (Probiotic Screen) 1 ea MC PRN PRN PRN Reason: PROTOCOL Stop: 10/23/17 08:29 Mupirocin (Bactroban Oint) 1 appl TP Q12HR [facility] Stop: 08/30/17 20:59 Last Admin: 08/26/17 10:06 Dose: 1 appl Ondansetron HCl (Zofran) 4 mg IV Q8H PRN PRN Reason: Nausea / Vomiting Stop: 10/22/17 23:49 Risperidone (Risperdal) 1 mg PO HS [facility]; Protocol Stop: 10/23/17 20:59 Last Admin: 08/25/17 21:35 Dose: 1 mg Sodium Phosphate (Fleet Enema) 135 ml RC Q72H PRN PRN Reason: Constipation Stop: 10/22/17 23:44 Vitamin D (Vitamin D) 800 iu PO DAILY [facility] Stop: 10/23/17 08:59 Last Admin: 08/26/17 10:03 Dose: 800 iu General: weak HEENT: NC/AT, PERRLA Neck: Supple Lungs: CTAB Cardiovascular: RRR, Normal S1, Normal S2, without murmur Abdomen: soft, non-tender, non-distended, positive bowel sound - Procedures Procedures: Procedures Procedure Code Date ASPIR CURETT UTERUS NEC 69.59 10/29/11 BIOPSY OF CERVIX 43109 09/05/94 CERVICAL LES DESTRUC NEC 67.39 09/05/94 CONTINUOUS INVASIVE MECHANICAL VENTILATION <96 CONSEC HRS 96.71 09/01/14 D & C NEC 69.09 09/05/94 DILATION AND CURETTAGE 82763 10/29/11 EMERGENCY DEPT VISIT 76026 05/28/11 GENITAL SURGERY PROCEDURE 23437 09/05/94 HYMENORRHAPHY 70.76 09/05/94 HYMENOTOMY 70.11 09/05/94 INCISION OF HYMEN 08720 09/05/94 LAPAROSCOPIC CHOLECYSTECTOMY 51.23 11/29/06 LAPAROSCOPIC CHOLECYSTECTOMY 99347 11/29/06 OTHER OPEN UMBILICAL HERNIORRHAPHY 53.49 11/29/06 RPR UMBIL JIHAN BLOCK > 5 YR 87024 11/29/06 Internal Medicine Assmt/Plan - Assessment Assessment: sepsis acute uti- esbl c.yolanda acute febrile illness MRSA nares htn dm2 asthma copd hx cva seizures dementia - Plan Plan: [facility] EVAL switch ivabx to zosyn follow up labs in am seizure precautions continue current plan of care Nutritional Asmnt/Malnutr-PDOC - Dietary Evaluation Malnutrition Findings (Please click <Entered> for more info): Nutritional Asmnt/Malnutrition Start: 08/24/17 17: 12 Text: Status: Complete Freq: Protocol: Document 08/24/17 17:12 LCHENG (Rec: 08/24/17 17:19 LCHENG [email or web address]) Nutritional Asmnt/Malnutrition Patient General Information Nutritional Screening High Risk Diagnosis sepsis, UTI, fever Pertinent Medical Hx/Surgical Hx HTN, DM, asthma, COPD, CVA TIA , seizure dmentia, gastritis, colitis, umbilical hernia, anemia, hydrocephalus Subjective Information Pt seen sleeping in bed at time of visit. Per nurse, pt is alert x1. Current Diet Order/ Nutrition Support pureed Pertinent Medications vit C, vit B12, iron, omega 3, novolog, culturelle, glucophage, zofran, vit D, nacl 0.9% Pertinent Labs 08/23 Na 129, Cl 93, glucose 160 08/24 POC 103-194 Nutritional Hx/Data Height 4 ft 10 in Height (Calculated Centimeters) 147.3 Current Weight (lbs) 115 lb Weight (Calculated Kilograms) 52.2 Weight (Calculated Grams) 20118.1 [place] Body Weight 96 Body Mass Index (BMI) 24.0 Weight Status Approriate GI Symptoms GI Symptoms None Last BM none Difficult in: None Skin Integrity/Comment: intact Estimated Nutritional Goals BEE in Kcals: Using Current wt Calories/Kcals/Kg 25-30 Kcals Calculated 9237-2956 Protein: Using Current wt Protein g/k.2 Protein Calculated 62 Fluid: ml 1300-1560ml (1ml/kcal) Nutritional Problem 2. Problem Problem increased nutrition needs ( calorie and protein) Etiology increased nutrition demand Signs/Symptoms: dx of sepsis 1. Problem Problem altered nutrition related lab Etiology hx of DM Signs/Symptoms: glucose 160` Malnutrition Alert Is there a minimum of two criteria No selected? Query Text:Check all the applicable criteria. A minimum of two criteria are recommended for diagnosis of either severe or non-severe malnutrition. Malnutrition Related to Morbid Obesity Malnutrition related to morbid obesity No Intervention/Recommendation Comments 1. Continue with pureed diet as ordered. If glucose continue high, will consider CCHO diet. 2. Monitor PO intake, wt, labs and skin integrity 3. F/U as high risk in 2-3 days, 08/26-08/27 Expected Outcomes/Goals Expected Outcomes/Goals 1. PO intake to meet at least 75% of nutritional needs. 2. Wt stability, skin to remain intact, labs to approach WNL.
[2017-08-27] MEDS: Sodium Chloride 0.9% 1,000 ML IV SCH (05:41)
[2017-08-27 06:29] LABS: % BASOPHILS 0.2 % (0.0-2.0); % LYMPHOCYTES 8.6 % (20.0-50.0); % MONOCYTES 10.9 % (2.0-10.0); % NEUTROPHILS 79.3 % (40.0-80.0); EOSINOPHILE ABSOLUTE 0.1 Th/cmm (0.1-0.4); HEMATOCRIT 25.9 % (41.0-60); HEMOGLOBIN 8.5 gm/dL (12-16); LYMPHOCYTE ABSOLUTE 1.1 Th/cmm (1.5-3.0); MEAN CELL VOLUME 85.4 fl (81-100); MEAN CORPUSCULAR HEMOGLOBIN 27.9 pg (27.0-31.0); MEAN CORPUSCULAR HGB CONC 32.7 pg (28.0-36.0); MEAN PLATELET VOLUME 6.4 fl; MONOCYTE ABSOLUTE 1.4 Th/cmm (0.3-1.0); NEUTROPHILE ABSOLUTE 10.7 Th/cmm (1.8-8.0); PLATELET COUNT 297 Th/cmm (150-400); RED BLOOD COUNT 3.03 Mil/cmm (3.80-5.20)
[2017-08-27 06:32] LABS: WHITE BLOOD COUNT 13.3 Th/cmm (4.8-10.8)
[2017-08-27 06:42] LABS: ANION GAP 9.2 (7.0-16.0); BUN - UREA NITROGEN 14 mg/dL (7-25); CALCIUM SERUM 8.5 mg/dL (8.6-10.3); CHLORIDE 99 mEq/L (98-107); CREATININE - SERUM 0.7 mg/dL (0.6-1.2); GLUCOSE 113 mg/dL (70-105); POTASSIUM SERUM 3.2 mEq/L (3.5-5.1); SODIUM SERUM 134 mEq/L (136-145)
[2017-08-27] MEDS: Albuterol Nebulizer 2.5mg/3mL HHN SCH ×2 (07:00→20:29)
[2017-08-27] MEDS: Fish Oil 1,000 MG SGL PO SCH ×2 (08:32→17:55)
[2017-08-27] MEDS: Ferrous Sulfate 325 MG TAB PO SCH ×2 (08:33→17:55)
[2017-08-27] MEDS: Lactobacillus Rhamnosus GG 15 Billion CFU CAP.SPRINK PO SCH (08:33)
[2017-08-27] MEDS: Multivitamin w/ Minerals Tab PO SCH (08:34)
[2017-08-27] MEDS: INSULIN ASPART, RECOMBINANT 100 UNITS/ML SUBQ SCH ×3 (08:37→17:54)
[2017-08-27] MEDS ORDERED: Potassium Chloride 20 mEq ER Tab PO ONE ×2 (09:00→13:18)
--- NOTE | 2017-08-27 11:15 | Internal Medicine Prog Note ---
Internal Medicine Subjective - Subjective Service Date: 08/27/17 Patient seen and examined:: with staff Patient is:: awake, non-verbal Per staff patient has:: tolerating meds Internal Medicine Objective - Results Result Diagrams: 08/27/17 06:00 08/27/17 06:00 Recent Labs: Laboratory Last Values WBC 13.3 Th/cmm (4.8-10.8) H 08/27/17 06:00 RBC 3.03 Mil/cmm (3.80-5.20) L 08/27/17 06:00 Hgb 8.5 gm/dL (12-16) L 08/27/17 06:00 Hct 25.9 % (41.0-60) L 08/27/17 06:00 MCV 85.4 fl (81-100) 08/27/17 06:00 MCH 27.9 pg (27.0-31.0) 08/27/17 06:00 MCHC Differential 32.7 pg (28.0-36.0) 08/27/17 06:00 RDW 12.0 % (11.5-20.0) 08/27/17 06:00 Plt Count 297 Th/cmm (150-400) 08/27/17 06:00 MPV 6.4 fl 08/27/17 06:00 Neutrophils % 79.3 % (40.0-80.0) 08/27/17 06:00 Lymphocytes % 8.6 % (20.0-50.0) L 08/27/17 06:00 Monocytes % 10.9 % (2.0-10.0) H 08/27/17 06:00 Eosinophils % 1.0 % (0.0-5.0) 08/27/17 06:00 Basophils % 0.2 % (0.0-2.0) 08/27/17 06:00 Sodium 134 mEq/L (136-145) L 08/27/17 06:00 Potassium 3.2 mEq/L (3.5-5.1) L 08/27/17 06:00 Chloride 99 mEq/L (98-107) 08/27/17 06:00 Carbon Dioxide 29.0 mEq/L (21.0-31.0) 08/27/17 06:00 Anion Gap 9.2 (7.0-16.0) 08/27/17 06:00 BUN 14 mg/dL (7-25) 08/27/17 06:00 Creatinine 0.7 mg/dL (0.6-1.2) 08/27/17 06:00 Est GFR ( Amer) TNP 08/27/17 06:00 Est GFR (Non-Af Amer) TNP 08/27/17 06:00 BUN/Creatinine Ratio 20.0 08/27/17 06:00 Glucose 113 mg/dL (70-105) H 08/27/17 06:00 POC Glucose 108 MG/DL (70 - 105) H 08/27/17 05:51 Whole Bld Lactic Acid 0.94 mmol/L (0.60-1.99) 08/23/17 21:45 Calcium 8.5 mg/dL (8.6-10.3) L 08/27/17 06:00 Ammonia 43 umol/L (16-53) 08/27/17 06:00 Urine Source CATH 08/23/17 22:05 Urine Color YELLOW 08/23/17 22:05 Urine Clarity CLOUDY (CLEAR) H 08/23/17 22:05 Urine pH 6.0 (4.6 - 8.0) 08/23/17 22:05 Ur Specific [place] 1.015 (1.005-1.030) 08/23/17 22:05 Urine Protein TRACE mg/dL (NEGATIVE) 08/23/17 22:05 Urine Glucose (UA) NEGATIVE mg/dL (NEGATIVE) 08/23/17 22:05 Urine Ketones NEGATIVE mg/dL (NEGATIVE) 08/23/17 22:05 Urine Blood NEGATIVE (NEGATIVE) 08/23/17 22:05 Urine Nitrate POSITIVE (NEGATIVE) H 08/23/17 22:05 Urine Bilirubin NEGATIVE (NEGATIVE) 08/23/17 22:05 Urine Urobilinogen 0.2 E.U./dL (0.2 - 1.0) 08/23/17 22:05 Ur Leukocyte Esterase MODERATE (NEGATIVE) H 08/23/17 22:05 Urine RBC 0-2 /hpf (0-5) 08/23/17 22:05 Urine WBC 25-50 /hpf (0-5) H 08/23/17 22:05 Ur Epithelial Cells FEW /lpf (FEW) 08/23/17 22:05 Urine Bacteria MANY /hpf (NONE SEEN) H 08/23/17 22:05 - Physical Exam Vitals and I&O: Vital Signs Temp 97.2 F 08/27/17 07:55 Pulse 84 08/27/17 08:34 Resp 18 08/27/17 08:00 BP 151/65 08/27/17 08:34 Pulse Ox 99 08/27/17 07:55 Intake & Output 08/26/17 08/27/17 08/27/17 18:59 06:59 18:59 Intake Total 4489.208 7348 Balance 0104.787 2792 Weight (lbs) 127 lb 11.2 oz 123 lb Intake: Intake, IV Amount 1039.517 4809 Piperacillin Sodium/ 100 100 Tazobact 4.5 gm In Sodium Chloride 0.9% 100 ml @ 100 mls/hr IV Q8HR [facility] Rx #:[id number] Sodium Chloride 0.9% 1, 816.749 0853 000 ml @ 80 mls/hr IV . [id number] [facility] Rx#:[id number] Oral 500 Other: # Voids 3 # Bowel Movements 1 Stool Characteristics Soft Soft Soft Green Green Green Weight Source Bedscale Bedscale Active Medications: Current Medications Acetaminophen (Tylenol) 650 mg PO Q4H PRN PRN Reason: Pain Or Fever above 101 Stop: 10/22/17 23:49 Last Admin: 08/25/17 15:38 Dose: 650 mg Al Hydrox/Mg Hydrox/Simethicone (Maalox) 30 ml PO Q6H PRN PRN Reason: Dyspepsia Stop: 10/22/17 23:48 Albuterol Sulfate (Albuterol 2.5mg/3ml Neb Ud) 2.5 mg HHN BID [facility] Stop: 10/23/17 08:59 Last Admin: 08/27/17 07:00 Dose: 2.5 mg Albuterol Sulfate (Albuterol 2.5mg/3ml Neb Ud) 2.5 mg HHN Q2HRT PRN PRN Reason: Shortness of Breath or Wheeze Stop: 10/22/17 23:48 Ascorbic Acid (Vitamin C) 500 mg PO BID [facility] Stop: 10/23/17 08:59 Last Admin: 08/27/17 08:34 Dose: 500 mg Bisacodyl (Dulcolax 10 Mg Supp) 10 mg RC DAILY PRN PRN Reason: Constipation Stop: 10/22/17 23:44 Calcium Acetate (Phoslo) 667 mg PO TID [facility] Stop: 10/23/17 08:59 Last Admin: 08/27/17 08:34 Dose: 667 mg Cyanocobalamin (Vitamin B12) 1,000 mcg PO DAILY [facility] Stop: 10/23/17 08:59 Last Admin: 08/27/17 08:34 Dose: 1,000 mcg Famotidine (Pepcid) 20 mg PO BID [facility] Stop: 10/23/17 08:59 Last Admin: 08/27/17 08:33 Dose: 20 mg Ferrous Sulfate (Iron) 325 mg PO BID [facility] Stop: 10/23/17 08:59 Last Admin: 08/27/17 08:33 Dose: 325 mg Fish Oil ([place] 3) 1,000 mg PO BID [facility] Stop: 10/23/17 08:59 Last Admin: 08/27/17 08:32 Dose: 1,000 mg Guaifenesin (Robitussin) 100 mg PO Q4H PRN PRN Reason: Congestion Stop: 10/23/17 01:00 Hydralazine HCl (Apresoline) 100 mg PO BID [facility] Stop: 10/23/17 08:59 Last Admin: 08/27/17 08:29 Dose: 100 mg Sodium Chloride (Nacl 0.9%) 1,000 mls @ 80 mls/hr IV .[id number] [facility] Stop: 10/22/17 23:44 Last Admin: 08/27/17 05:41 Dose: 80 mls/hr Piperacillin Sod/Tazobactam (Sod 4.5 gm/ Sodium Chloride) 100 mls @ 100 mls/hr IV Q8HR [facility] Stop: 10/25/17 12:59 Last Admin: 08/27/17 05:22 Dose: 100 mls/hr Insulin Aspart (Novolog) 0 units SUBQ ACHS [facility]; Protocol Stop: 10/23/17 07:29 Last Admin: 08/27/17 08:37 Dose: Not Given Ipratropium [place] (Atrovent Neb 0.5mg/2.5ml) 0.5 mg HHN Q2HRT PRN PRN Reason: Shortness of Breath or Wheeze Stop: 10/22/17 23:48 Lactobacillus Rhamnosus (Culturelle 15b) 1 each PO DAILY [facility] Stop: 10/23/17 08:59 Last Admin: 08/27/17 08:33 Dose: 1 each Lisinopril (Zestril) 20 mg PO BID [facility] Stop: 10/23/17 08:59 Last Admin: 08/27/17 08:34 Dose: 20 mg Magnesium Hydroxide (Milk Of Magnesia) 30 ml PO DAILY PRN PRN Reason: Constipation Stop: 10/22/17 23:44 Metformin HCl (Glucophage) 500 mg PO QDPC [facility] Stop: 10/23/17 08:29 Last Admin: 08/27/17 08:33 Dose: 500 mg Miscellaneous (Probiotic Screen) 1 ea MC PRN PRN PRN Reason: PROTOCOL Stop: 10/23/17 08:29 Mupirocin (Bactroban Oint) 1 appl TP Q12HR [facility] Stop: 08/30/17 20:59 Last Admin: 08/27/17 08:41 Dose: 1 appl Ondansetron HCl (Zofran) 4 mg IV Q8H PRN PRN Reason: Nausea / Vomiting Stop: 10/22/17 23:49 Risperidone (Risperdal) 1 mg PO HS [facility]; Protocol Stop: 10/23/17 20:59 Last Admin: 08/26/17 21:16 Dose: 1 mg Sodium Phosphate (Fleet Enema) 135 ml RC Q72H PRN PRN Reason: Constipation Stop: 10/22/17 23:44 Vitamin D (Vitamin D) 800 iu PO DAILY [facility] Stop: 10/23/17 08:59 Last Admin: 08/27/17 08:33 Dose: 800 iu General: weak HEENT: NC/AT, PERRLA Neck: Supple Lungs: CTAB Cardiovascular: RRR, Normal S1, Normal S2, without murmur Abdomen: soft, non-tender, non-distended, positive bowel sound - Procedures Procedures: Procedures Procedure Code Date ASPIR CURETT UTERUS NEC 69.59 10/29/11 BIOPSY OF CERVIX 91751 09/05/94 CERVICAL LES DESTRUC NEC 67.39 09/05/94 CONTINUOUS INVASIVE MECHANICAL VENTILATION <96 CONSEC HRS 96.71 09/01/14 D & C NEC 69.09 09/05/94 DILATION AND CURETTAGE 21838 10/29/11 EMERGENCY DEPT VISIT 75785 05/28/11 GENITAL SURGERY PROCEDURE 48566 09/05/94 HYMENORRHAPHY 70.76 09/05/94 HYMENOTOMY 70.11 09/05/94 INCISION OF HYMEN 37263 09/05/94 LAPAROSCOPIC CHOLECYSTECTOMY 51.23 11/29/06 LAPAROSCOPIC CHOLECYSTECTOMY 76212 11/29/06 OTHER OPEN UMBILICAL HERNIORRHAPHY 53.49 11/29/06 RPR UMBIL JIHAN BLOCK > 5 YR 59776 11/29/06 Internal Medicine Assmt/Plan - Assessment Assessment: sepsis acute uti- esbl c.yolanda acute febrile illness MRSA nares htn dm2 asthma copd hx cva seizures dementia - Plan Plan: patient accepted to [facility] awaiting for bed available switch ivabx to zosyn follow up labs in am seizure precautions continue current plan of care Nutritional Asmnt/Malnutr-PDOC - Dietary Evaluation Malnutrition Findings (Please click <Entered> for more info): Nutritional Asmnt/Malnutrition Start: 08/24/17 17: 12 Text: Status: Complete Freq: Protocol: Document 08/24/17 17:12 [email or web address] (Rec: 08/24/17 17:19 HEN [email or web address]) Nutritional Asmnt/Malnutrition Patient General Information Nutritional Screening High Risk Diagnosis sepsis, UTI, fever Pertinent Medical Hx/Surgical Hx HTN, DM, asthma, COPD, CVA TIA , seizure dmentia, gastritis, colitis, umbilical hernia, anemia, hydrocephalus Subjective Information Pt seen sleeping in bed at time of visit. Per nurse, pt is alert x1. Current Diet Order/ Nutrition Support pureed Pertinent Medications vit C, vit B12, iron, omega 3, novolog, culturelle, glucophage, zofran, vit D, nacl 0.9% Pertinent Labs 08/23 Na 129, Cl 93, glucose 160 08/24 POC 103-194 Nutritional Hx/Data Height 4 ft 10 in Height (Calculated Centimeters) 147.3 Current Weight (lbs) 115 lb Weight (Calculated Kilograms) 52.2 Weight (Calculated Grams) 02560.1 [place] Body Weight 96 Body Mass Index (BMI) 24.0 Weight Status Approriate GI Symptoms GI Symptoms None Last BM none Difficult in: None Skin Integrity/Comment: intact Estimated Nutritional Goals BEE in Kcals: Using Current wt Calories/Kcals/Kg 25-30 Kcals Calculated 6411-8099 Protein: Using Current wt Protein g/k.2 Protein Calculated 62 Fluid: ml 1300-1560ml (1ml/kcal) Nutritional Problem 2. Problem Problem increased nutrition needs ( calorie and protein) Etiology increased nutrition demand Signs/Symptoms: dx of sepsis 1. Problem Problem altered nutrition related lab Etiology hx of DM Signs/Symptoms: glucose 160` Malnutrition Alert Is there a minimum of two criteria No selected? Query Text:Check all the applicable criteria. A minimum of two criteria are recommended for diagnosis of either severe or non-severe malnutrition. Malnutrition Related to Morbid Obesity Malnutrition related to morbid obesity No Intervention/Recommendation Comments 1. Continue with pureed diet as ordered. If glucose continue high, will consider CCHO diet. 2. Monitor PO intake, wt, labs and skin integrity 3. F/U as high risk in 2-3 days, 08/26-08/27 Expected Outcomes/Goals Expected Outcomes/Goals 1. PO intake to meet at least 75% of nutritional needs. 2. Wt stability, skin to remain intact, labs to approach WNL.
[2017-08-28 10:18] LABS: FOLIC ACID >20.0 ng/mL (>3.0)
--- NOTE | 2017-09-03 18:58 | Discharge Summary ---
DATE OF DISCHARGE: 08/28/2017 DISCHARGE DIAGNOSES: 1. Sepsis. 2. Acute urinary tract infection with extended-spectrum b-lactamase Escherichia coli. 3. Acute febrile illness. 4. Methicillin-resistant Staphylococcus aureus of nares. 5. Hypertension. 6. Diabetes. 7. Asthma. 8. Chronic obstructive pulmonary disease. 9. History of cerebrovascular accident. 10. Seizures. 11. Dementia. HISTORY OF PRESENT ILLNESS: This is a 77-year-old female, resident of [facility], admitted to the telemetry unit due to temperature of 102.3 and oxygen saturation 91%. PHYSICAL EXAMINATION: GENERAL: Elderly female, in no apparent distress. HEENT: Head normocephalic and atraumatic. NECK: Supple. No mass. LUNGS: Clear bilaterally. HEART: Regular rate and rhythm. ABDOMEN: Soft and nontender. HOSPITAL COURSE: During the hospital stay, the patient was admitted to the telemetry unit. The patient's x-ray done and the patient had atherosclerotic vascular changes. No focal consolidation identified. The patient has a urinalysis, is positive for UTI. The patient was kept on IV antibiotics of cefepime as well as IV fluids for hydration. The patient had a urine culture, is positive for ESBL E. coli. The patient's antibiotics have been changed accordingly to the culture and sensitivity. The patient was positive for MRSA of nares, and the patient was being treated for Bactroban. Due to the need to continue IV antibiotics, it was then decided for patient to be transferred to [facility]. CONDITION UPON DISCHARGE: Fair. DISPOSITION: [facility]. [facility]# [id number]
== END 2017-08-27 22:35 | DRG 872 ==
LOC: ER 21:05 → TELE 23:46
PROVIDERS: ADMIT Internal Medicine; ATTEND Internal Medicine
DX: A41.9 Sepsis, unspecified organism (principal); N39.0 Urinary tract infection, site not specified; I10 Essential (primary) hypertension; E11.9 Type 2 diabetes mellitus without complications; J44.9 Chronic obstructive pulmonary disease, unspecified; R56.9 Unspecified convulsions; F03.90 Unspecified dementia, unspecified severity, without behavioral disturbance, psychotic disturbance, mood disturbance, and anxiety; J45.998 Other asthma; D64.9 Anemia, unspecified; M19.90 Unspecified osteoarthritis, unspecified site; B96.20 Unspecified Escherichia coli [E. coli] as the cause of diseases classified elsewhere; Z16.12 Extended spectrum beta lactamase (ESBL) resistance; Z86.73 Personal history of transient ischemic attack (TIA), and cerebral infarction without residual deficits; Z22.322 Carrier or suspected carrier of Methicillin resistant Staphylococcus aureus; Z82.49 Family history of ischemic heart disease and other diseases of the circulatory system; Z79.899 Other long term (current) drug therapy
CPT/HCPCS: 36415-UA; 71045-TC; 80048-TC; 81001-TC; 82140-TC; 82607-90; 82746-90; 82948-90; 83605; 85007-TC; 85025-TC; 85027-TC; 87086-90; 90732; 93005; 94760; J0692; J0696; J1815; J2543; J3370; J7030; J7613; Z7610

== ENCOUNTER 2018-09-13 09:58 | Inpatient (IN) | payer MEDICARE, MEDICAID ==
[2018-09-13 10:24] LABS: % EOSINOPHILS 0.3 % (0.0-5.0); % LYMPHOCYTES 15.4 % (20.0-50.0); % MONOCYTES 5.6 % (2.0-10.0); % NEUTROPHILS 77.7 % (40.0-80.0); BASOPHILE ABSOLUTE 0.1 Th/cumm (0-0.2); HEMATOCRIT 29.4 % (41.0-60); HEMOGLOBIN 9.9 gm/dL (12-16); LYMPHOCYTE ABSOLUTE 1.6 Th/cmm (1.5-3.0); MEAN CELL VOLUME 86.2 fl (81-100); MEAN CORPUSCULAR HEMOGLOBIN 28.9 pg (27.0-31.0); MEAN CORPUSCULAR HGB CONC 33.5 pg (28.0-36.0); MONOCYTE ABSOLUTE 0.6 Th/cmm (0.3-1.0); NEUTROPHILE ABSOLUTE 7.8 Th/cmm (1.8-8.0); PLATELET COUNT 179 Th/cmm (150-400); RED BLOOD COUNT 3.41 Mil/cmm (3.80-5.20); WHITE BLOOD COUNT 10.1 Th/cmm (4.8-10.8)
[2018-09-13 10:46] LABS: ANION GAP 8.7 (7.0-16.0); BUN - UREA NITROGEN 20 mg/dL (7-25); CALCIUM SERUM 9.4 mg/dL (8.6-10.3); CARBON DIOXIDE 33.8 mEq/L (21.0-31.0); CHLORIDE 85 mEq/L (98-107); CREATININE - SERUM 0.9 mg/dL (0.6-1.2); GLUCOSE 100 mg/dL (70-105); POTASSIUM SERUM 4.5 mEq/L (3.5-5.1); SODIUM SERUM 123 mEq/L (136-145)
--- NOTE | 2018-09-13 12:10 | ED Physician Chart ---
ED Chief Complaint/HPI - Patient Information Date Seen:: 09/13/18 Time Seen:: 10:30 Chief Complaint:: fever cough History of Present Illness:: one day hx copd Allergies:: Allergies Allergy/AdvReac Type Severity Reaction Status Date / Time No Known Allergies Allergy Verified 03/22/17 21:14 Vitals:: Vital Signs - 8 hr 09/13/18 09/13/18 10:08 10:10 Temp 98.5 F 98.5 F HR 88 88 RR 22 22 BP 145/55 145/55 O2 Sat % 94 94 ED Review of Systems - Review of Systems Pulmonary: Cough ED Past Medical History - Past Medical History Past Medical History: Asthma/COPD, Seizures, Other (paranoid schizophrenia) Family Medical History - Family Member Mother History Unknown: Yes Living Status: Unknown Hx Family Cancer: No Hx Family Coronary Artery Disease: No Hx Family Congestive Heart Failure: No Hx Family Hypertension: Yes Hx Family Stroke: No Hx Family Diabetes: Yes Hx Family Seizures: No Hx Family COPD: Yes ED Physical Exam - Physical Examination General/Constitutional: Non-toxic appearing Head: Atraumatic Eyes: Lids, conjuctiva normal ENMT: External ears, nose nl Neck: No stridor Respiratory: Clear to Auscultation Cardio Vascular: RRR GI: No tenderness/rebounding/guarding ED Labs/Radiology/EKG Results - Lab Results Results: Laboratory Tests 09/13/18 09/13/18 10:15 10:15 WBC 10.1 RBC 3.41 L Hgb 9.9 L Hct 29.4 L MCV 86.2 MCH 28.9 MCHC Differential 33.5 RDW 12.0 Plt Count 179 MPV 6.6 Neutrophils % 77.7 Lymphocytes % 15.4 L Monocytes % 5.6 Eosinophils % 0.3 Basophils % 1.0 Sodium 123 L Potassium 4.5 Chloride 85 L Carbon Dioxide 33.8 H Anion Gap 8.7 BUN 20 Creatinine 0.9 Est GFR ( Amer) TNP Est GFR (Non-Af Amer) TNP BUN/Creatinine Ratio 22.2 Glucose 100 Calcium 9.4 ED Assessment - Assessment General Assessment: hyponatremia coughr/o pna ED Septic Shock - . Is Septic Shock (SBP<90, OR Lactate>4 mmol\L) present?: No - <6hrs of presentation: Vital Signs: Vital Signs - 8 hr 09/13/18 09/13/18 10:08 10:10 Temp 98.5 F 98.5 F HR 88 88 RR 22 22 BP 145/55 145/55 O2 Sat % 94 94 ED Reassessment (Disposition) - Reassessment Reassessment Condition:: Unchanged - Patient Disposition Discharge/Transfer:: Acute Care w/in this hosp (needs stabilization correction electrolytes) Condition at Disposition:: Stable
[2018-09-13] MEDS ORDERED: Vitamin A/Vitamin D 5 gm Packet TP PRN (12:24)
[2018-09-13] MEDS ORDERED: Menthol/Zinc Oxide Oint 113gm Tube TP PRN (12:24)
[2018-09-13] MEDS ORDERED: GUAIFENESIN 100 MG PO PRN (12:24)
[2018-09-13] MEDS ORDERED: [UNRECOGNIZED DRUG - OTHER] TP PRN (12:24)
[2018-09-13] MEDS ORDERED: Magnesium Hydroxide (MOM) 30 mL UDC PO PRN (12:24)
[2018-09-13] MEDS ORDERED: Fleet Enema 135 mL RC PRN (12:24)
[2018-09-13] MEDS ORDERED: Dextrose 50% 50 mL Abboject IVP PRN (12:27)
[2018-09-13] MEDS ORDERED: GLUCAGON HCl 1 MG KIT IM PRN (12:27)
[2018-09-13] MEDS ORDERED: guaiFENesin 200 MG/10 ML UDC PO PRN (12:28)
[2018-09-13] MEDS ORDERED: cefTRIAXone 1 GM in Sodium Chloride 0.9% 50 ML IV SCH (13:00)
--- NOTE | 2018-09-13 13:22 | Diagnostic Imaging Report ---
Portable chest x-ray HISTORY: Cough The heart appears somewhat enlarged. Atherosclerotic calcification seen in the aorta. Allowing for a poor inspiration, no acute focal pulmonary processes are seen. IMPRESSION: 1. Cardiomegaly with atherosclerotic vascular changes 2. Allowing for a poor inspiration, no acute focal pulmonary processes
[2018-09-13] MEDS: D5-0.9%NS 1,000 ML IV SCH (13:51)
[2018-09-13] MEDS: Ferrous Sulfate 325 MG TAB PO SCH ×2 (14:09→21:23)
[2018-09-13] MEDS: Ipratropium Neb 0.5 mg/2.5 mL UD IH SCH ×2 (14:33→18:40)
[2018-09-13] MEDS: Albuterol Nebulizer 2.5mg/3mL HHN SCH ×2 (14:33→18:40)
--- NOTE | 2018-09-13 15:13 | History & Physical ---
ADMIT DATE: 09/13/2018 CHIEF COMPLAINT: Fever and congestion. HISTORY OF PRESENT ILLNESS: This is a 78-year-old female with history of COPD, seizure, hypertension, diabetes, history of stroke, dementia, admitted from nursing facility secondary to fever and congestion of 101. The patient noted to have a low sodium as well in the ER with medical and the patient is a poor historian. PAST MEDICAL HISTORY: As mentioned in history present illness. PAST SURGICAL HISTORY: Unable to obtain from the patient. ALLERGIES: No known drug allergies. MEDICATIONS: The patient is on albuterol, Atrovent, aspirin, ascorbic acid, atorvastatin, Dulcolax, vitamin D3, vitamin B12, clonidine, ____ hydralazine, Keppra, lisinopril, metformin, pantoprazole. FAMILY HISTORY: Noncontributory. SOCIAL HISTORY: group home patient requiring 24-hour total care. REVIEW OF SYSTEMS: This is limited secondary to the patient's current mental state. We will try to obtain more detailed review of systems at a later date by family members. There is a niece, Sandra Macdonald, , see tomorrow, block and case maker from [facility] [phone]. We will try to get information from nursing staff at [facility] [phone]. PHYSICAL EXAMINATION: VITAL SIGNS: Blood pressure 158/65, 20 was 95 and temperature 97.3. GENERAL: Elderly female, appears her stated age. NECK: Supple. No mass. LUNGS: Equal breath sounds, few rhonchi. HEART: Regular rate and rhythm with systolic ejection murmur. ABDOMEN: Soft, globular. EXTREMITIES: Positive excoriation. NEUROLOGIC: Limited. LABORATORY DATA: WBC 10, hemoglobin 9.9, platelets 179. Sodium 123, ____, BUN 24, creatinine 0.9. Rest of labs are pending. ASSESSMENT AND PLAN: Fever, congestion, possible pneumonia, hyponatremia, anemia, chronic obstructive pulmonary disease, seizure, hypertension, diabetes, history of stroke, dementia, hypercholesterolemia. The patient is on oxygen and bronchodilator treatment. Continue on empiric IV antibiotic. We will review the patient's chest x-ray. We will send for sputum, Gram stain, C and S. We will monitor the patient closely. JOB# [id number]
[2018-09-13 15:30] VITALS: BP 175/77
[2018-09-13] MEDS: INSULIN LISPRO SLIDING SCALE 100 UNITS/ML UNIT SUBQ SCH ×2 (16:53→21:22)
[2018-09-13] MEDS: Fish Oil 1,000 MG SGL PO SCH (16:56)
[2018-09-13] MEDS ORDERED: Albuterol Nebulizer 2.5mg/3mL HHN SCH (17:00)
[2018-09-13] MEDS: Atorvastatin Calcium 10 MG TAB PO SCH (21:23)
[2018-09-13 23:18] LABS: URINE SOURCE CATH
[2018-09-14 00:15] LABS: URINE BILIRUBIN NEGATIVE (NEGATIVE); URINE BLOOD TRACE (NEGATIVE); URINE GLUCOSE (UA) NEGATIVE (NEGATIVE); URINE KETONE NEGATIVE (NEGATIVE); URINE LEUKOCYTE ESTERASE LARGE (NEGATIVE); URINE MICROSCOPIC INDICATED? YES; URINE NITRATE POSITIVE (NEGATIVE); URINE PH 6.5 (4.6 - 8.0); URINE PROTEIN 30 mg/dL (NEGATIVE); URINE UROBILINOGEN 0.2 E.U./dL (0.2 - 1.0)
[2018-09-14 00:24] LABS: URINE CLARITY HAZY (CLEAR); URINE COLOR YELLOW
[2018-09-14 00:26] LABS: URINE RBC 0-2 /hpf (0-5)
[2018-09-14 00:27] LABS: URINE BACTERIA MODERATE /hpf (NONE SEEN); URINE EPITHELIAL CELLS MANY /lpf (FEW); URINE WBC 25-50 /hpf (0-5)
[2018-09-14] MEDS: D5-0.9%NS 1,000 ML IV SCH ×2 (03:00→15:10)
[2018-09-14 05:44] LABS: HEMATOCRIT 30.6 % (41.0-60); HEMOGLOBIN 10.2 gm/dL (12-16); MEAN CELL VOLUME 88.1 fl (81-100); MEAN CORPUSCULAR HEMOGLOBIN 29.5 pg (27.0-31.0); MEAN CORPUSCULAR HGB CONC 33.5 pg (28.0-36.0); PLATELET COUNT 166 Th/cmm (150-400); RED BLOOD COUNT 3.47 Mil/cmm (3.80-5.20); RED CELL DISTRIBUTION WIDTH 12.3 % (11.5-20.0)
[2018-09-14 05:55] LABS: ALB/GLOB RATIO 1.1 (1.0-1.8); ALBUMIN 3.4 gm/dL (3.7-5.3); ALKALINE PHOSPHATASE 103 U/L (34-104); ANION GAP 11.1 (7.0-16.0); BILIRUBIN,TOTAL 0.3 mg/dL (0.3-1.0); BUN - UREA NITROGEN 18 mg/dL (7-25); CALCIUM SERUM 9.3 mg/dL (8.6-10.3); CHLORIDE 90 mEq/L (98-107); CREATININE - SERUM 0.8 mg/dL (0.6-1.2); GLUCOSE 125 mg/dL (70-105); POTASSIUM SERUM 4.1 mEq/L (3.5-5.1); SGOT 19 U/L (13-39); SGPT/ALT 19 U/L (7-52); SODIUM SERUM 128 mEq/L (136-145); TOTAL PROTEIN,SERUM 6.5 gm/dL (6.0-8.3)
[2018-09-14 06:09] LABS: WHITE BLOOD COUNT 14.5 Th/cmm (4.8-10.8)
[2018-09-14] MEDS: INSULIN LISPRO SLIDING SCALE 100 UNITS/ML UNIT SUBQ SCH ×4 (06:32→21:19)
[2018-09-14] MEDS: Levothyroxine 0.025 Mg Tab PO SCH (07:00)
[2018-09-14] MEDS: Ipratropium Neb 0.5 mg/2.5 mL UD IH SCH ×4 (07:12→19:27)
[2018-09-14] MEDS: Albuterol Nebulizer 2.5mg/3mL HHN SCH ×4 (07:12→19:27)
[2018-09-14 07:57] LABS: BAND NEUTROPHILE 1 % (0-10); BASOPHIL 0 % (0-3); EOSINOPHIL 0 % (0-5); LYMPHOCYTE 8 % (20-50); MONOCYTE 6 % (2-10); NEUTROPHILS 85 % (40-80)
[2018-09-14] MEDS: Ferrous Sulfate 325 MG TAB PO SCH ×3 (08:28→20:46)
[2018-09-14] MEDS: Fish Oil 1,000 MG SGL PO SCH ×2 (08:28→16:13)
[2018-09-14] MEDS: Multivitamin w/ Minerals Tab PO SCH (08:29)
[2018-09-14] MEDS: Pantoprazole 40 mg EC Tab PO SCH (08:29)
--- NOTE | 2018-09-14 08:57 | Diagnostic Imaging Report ---
Portable chest x-ray HISTORY: Cough Compared to prior exam of September 13, 2018, the heart is enlarged. Atherosclerotic calcination seen in the aorta. No acute focal pulmonary processes. Degenerative changes seen throughout the spine. IMPRESSION: 1. No acute pulmonary processes 2. Cardiomegaly with atherosclerotic vascular changes
--- NOTE | 2018-09-14 12:41 | Internal Medicine Prog Note ---
Internal Medicine Subjective - Subjective Patient seen and examined:: with staff, chart reviewed Patient is:: awake, non-verbal, non-interactive, in bed, confused Patient Complaints of:: congestion Per staff patient has:: no adverse event, no episodes of fall, poor appetite, gagging Internal Medicine Objective - Results Result Diagrams: 09/14/18 04:20 09/14/18 04:20 Recent Labs: Laboratory Last Values WBC 14.5 Th/cmm (4.8-10.8) H D 09/14/18 04:20 RBC 3.47 Mil/cmm (3.80-5.20) L 09/14/18 04:20 Hgb 10.2 gm/dL (12-16) L 09/14/18 04:20 Hct 30.6 % (41.0-60) L 09/14/18 04:20 MCV 88.1 fl (81-100) 09/14/18 04:20 MCH 29.5 pg (27.0-31.0) 09/14/18 04:20 MCHC Differential 33.5 pg (28.0-36.0) 09/14/18 04:20 RDW 12.3 % (11.5-20.0) 09/14/18 04:20 Plt Count 166 Th/cmm (150-400) 09/14/18 04:20 MPV 6.8 fl 09/14/18 04:20 Add Manual Diff YES 09/14/18 04:20 Neutrophils % 77.7 % (40.0-80.0) 09/13/18 10:15 Band Neutrophils % 1 % (0-10) 09/14/18 04:20 Lymphocytes % 15.4 % (20.0-50.0) L 09/13/18 10:15 Monocytes % 5.6 % (2.0-10.0) 09/13/18 10:15 Eosinophils % 0.3 % (0.0-5.0) 09/13/18 10:15 Basophils % 1.0 % (0.0-2.0) 09/13/18 10:15 Neutrophils (Manual) 85 % (40-80) H 09/14/18 04:20 Lymphocytes 8 % (20-50) L 09/14/18 04:20 Monocytes 6 % (2-10) 09/14/18 04:20 Eosinophils 0 % (0-5) 09/14/18 04:20 Basophils 0 % (0-3) 09/14/18 04:20 Sodium 128 mEq/L (136-145) L 09/14/18 04:20 Potassium 4.1 mEq/L (3.5-5.1) 09/14/18 04:20 Chloride 90 mEq/L (98-107) L 09/14/18 04:20 Carbon Dioxide 31.0 mEq/L (21.0-31.0) 09/14/18 04:20 Anion Gap 11.1 (7.0-16.0) 09/14/18 04:20 BUN 18 mg/dL (7-25) 09/14/18 04:20 Creatinine 0.8 mg/dL (0.6-1.2) 09/14/18 04:20 Est GFR ( Amer) TNP 09/14/18 04:20 Est GFR (Non-Af Amer) TNP 09/14/18 04:20 BUN/Creatinine Ratio 22.5 09/14/18 04:20 Glucose 125 mg/dL (70-105) H 09/14/18 04:20 POC Glucose 165 MG/DL (70 - 105) H 09/14/18 11:18 Calcium 9.3 mg/dL (8.6-10.3) 09/14/18 04:20 Total Bilirubin 0.3 mg/dL (0.3-1.0) 09/14/18 04:20 AST 19 U/L (13-39) 09/14/18 04:20 ALT 19 U/L (7-52) 09/14/18 04:20 Alkaline Phosphatase 103 U/L (34-104) 09/14/18 04:20 Ammonia 53 umol/L (16-53) 09/14/18 04:20 B-Natriuretic Peptide 195.0 pg/mL (5.0-100.0) H 09/13/18 10:15 Total Protein 6.5 gm/dL (6.0-8.3) 09/14/18 04:20 Albumin 3.4 gm/dL (3.7-5.3) L 09/14/18 04:20 Globulin 3.1 gm/dL 09/14/18 04:20 Albumin/Globulin Ratio 1.1 (1.0-1.8) 09/14/18 04:20 TSH 3.48 uIU/ml (0.34-5.60) 09/13/18 10:15 Urine Source CATH 09/13/18 23:00 Urine Color YELLOW 09/13/18 23:00 Urine Clarity HAZY (CLEAR) 09/13/18 23:00 Urine pH 6.5 (4.6 - 8.0) 09/13/18 23:00 Ur Specific [place] 1.010 (1.005-1.030) 09/13/18 23:00 Urine Protein 30 mg/dL (NEGATIVE) H 09/13/18 23:00 Urine Glucose (UA) NEGATIVE mg/dL (NEGATIVE) 09/13/18 23:00 Urine Ketones NEGATIVE mg/dL (NEGATIVE) 09/13/18 23:00 Urine Blood TRACE (NEGATIVE) 09/13/18 23:00 Urine Nitrate POSITIVE (NEGATIVE) H 09/13/18 23:00 Urine Bilirubin NEGATIVE (NEGATIVE) 09/13/18 23:00 Urine Urobilinogen 0.2 E.U./dL (0.2 - 1.0) 09/13/18 23:00 Ur Leukocyte Esterase LARGE (NEGATIVE) H 09/13/18 23:00 Urine RBC 0-2 /hpf (0-5) 09/13/18 23:00 Urine WBC 25-50 /hpf (0-5) H 09/13/18 23:00 Ur Epithelial Cells MANY /lpf (FEW) 09/13/18 23:00 Urine Bacteria MODERATE /hpf (NONE SEEN) H 09/13/18 23:00 - Physical Exam Vitals and I&O: Vital Signs Temp 97.3 F 09/14/18 08:00 Pulse 91 09/14/18 11:39 Resp 18 09/14/18 11:39 BP 141/52 09/14/18 09:34 Pulse Ox 96 09/14/18 11:39 Intake & Output 09/13/18 09/14/18 09/14/18 18:59 06:59 18:59 Intake Total 480 1000 Balance 480 1000 Weight (lbs) 61.235 kg 61.235 kg Intake: Intake, IV Amount 1000 D5-0.9%Ns 1,000 ml @ 80 1000 mls/hr IV .[id number] [facility] Rx #:[id number] Oral 480 Other: # Voids 1 1 Weight Source Bedscale Bedscale Active Medications: Current Medications Acetaminophen (Tylenol) 650 mg PO Q4H PRN PRN Reason: Pain Or Fever above 99.9 Stop: 11/12/18 12:23 Last Admin: 09/13/18 19:35 Dose: 650 mg Albuterol Sulfate (Albuterol 2.5mg/3ml Neb Ud) 2.5 mg HHN QIDRT [facility] Stop: 11/12/18 14:59 Last Admin: 09/14/18 11:39 Dose: 2.5 mg Ascorbic Acid (Vitamin C) 500 mg PO BID [facility] Stop: 11/12/18 16:59 Last Admin: 09/14/18 08:28 Dose: 500 mg Aspirin (Ecotrin) 81 mg PO DAILY [facility] Stop: 11/13/18 08:59 Last Admin: 09/14/18 08:29 Dose: 81 mg Atorvastatin Calcium (Lipitor) 20 mg PO HS [facility] Stop: 11/12/18 20:59 Last Admin: 09/13/18 21:23 Dose: 20 mg Bisacodyl (Dulcolax 10 Mg Supp) 10 mg RC PRN PRN PRN Reason: IF MOM INEFFECTIVE Stop: 11/12/18 12:23 Calamine/Phenol (Calmoseptine) 1 appl TP PRN PRN PRN Reason: AFTER EACH INCONTINENCE Cyanocobalamin (Vitamin B12) 1,000 mcg PO DAILY [facility] Stop: 11/13/18 08:59 Last Admin: 09/14/18 08:29 Dose: 1,000 mcg Dextrose (D50w) 50 ml IVP PRN PRN PRN Reason: BS Below 70&not tolerate po Stop: 11/12/18 12:26 Dextrose (Glutose 40%) 18.75 gm PO PRN PRN PRN Reason: BS Below 70 & tolerate po Stop: 11/12/18 12:26 Ferrous Sulfate (Iron) 325 mg PO TID [facility] Stop: 11/12/18 13:59 Last Admin: 09/14/18 08:28 Dose: 325 mg Fish Oil ([place] 3) 1,000 mg PO BID [facility] Stop: 11/12/18 16:59 Last Admin: 09/14/18 08:28 Dose: 1,000 mg Glucagon (Glucagen) 1 mg IM PRN PRN PRN Reason: BS Below 70&dextrose ineffecti Stop: 11/12/18 12:26 Guaifenesin (Robitussin) 200 mg PO Q4HR PRN PRN Reason: Cough or Congestion Stop: 11/12/18 12:27 Last Admin: 09/14/18 09:35 Dose: 200 mg Hydralazine HCl (Apresoline) 100 mg PO BID [facility] Stop: 11/12/18 16:59 Last Admin: 09/14/18 08:28 Dose: 100 mg Dextrose/Sodium Chloride (D5-0.9%Ns) 1,000 mls @ 80 mls/hr IV .[id number] [facility] Stop: 11/12/18 12:29 Last Admin: 09/14/18 03:00 Dose: 80 mls/hr Ceftriaxone Sodium 1 gm/ (Sodium Chloride) 50 mls @ 100 mls/hr IV Q12HR [facility] Stop: 11/13/18 20:59 Insulin Human Lispro (Humalog Insulin Sliding Scale) 0 units SUBQ ACHS [facility]; Protocol Stop: 11/12/18 16:29 Last Admin: 09/14/18 11:39 Dose: Not Given Ipratropium [place] (Atrovent Neb 0.5mg/2.5ml) 0.5 mg IH QIDRT [facility] Stop: 11/12/18 14:59 Last Admin: 09/14/18 11:39 Dose: 0.5 mg Levetiracetam (Keppra) 500 mg PO BID [facility] Stop: 11/12/18 16:59 Last Admin: 09/14/18 08:28 Dose: 500 mg Levothyroxine Sodium (Synthroid) 0.025 mg PO QDAC [facility] Stop: 11/13/18 07:29 Last Admin: 09/14/18 07:00 Dose: 0.025 mg Lisinopril (Zestril) 20 mg PO BID [facility] Stop: 11/12/18 16:59 Last Admin: 09/14/18 09:34 Dose: 20 mg Magnesium Hydroxide (Milk Of Magnesia) 30 ml PO DAILY PRN PRN Reason: IF NO BM IN TWO DAYS Stop: 11/12/18 12:23 Metformin HCl (Glucophage) 500 mg PO DAILY [facility] Stop: 11/13/18 08:59 Last Admin: 09/14/18 08:28 Dose: 500 mg Miscellaneous (Sunscreen) 1 appl TP PRN PRN PRN Reason: SUN EXPOSURE Ondansetron HCl (Zofran) 4 mg IV Q8H PRN PRN Reason: Nausea / Vomiting Stop: 11/12/18 12:26 Pantoprazole Sodium (Protonix) 40 mg PO DAILY [facility] Stop: 11/13/18 08:59 Last Admin: 09/14/18 08:29 Dose: 40 mg Risperidone (Risperdal) 1 mg PO HS [facility]; Protocol Stop: 11/12/18 20:59 Sodium Phosphate (Fleet Enema) 135 ml RC Q72H PRN PRN Reason: IF DULCOLAX INEFFECTIVE Stop: 11/12/18 12:23 Vitamin A (Vitamin A & D) 5 gm TP PRN PRN PRN Reason: AFTER EACH INCONTINENCE Vitamin D (Vitamin D) 800 iu PO DAILY [facility] Stop: 11/13/18 08:59 Last Admin: 09/14/18 08:27 Dose: 800 iu General: demented, appears younger HEENT: NC/AT, PERRLA, EOMI Neck: Supple Lungs: congested, rales Cardiovascular: RRR, Normal S1, Normal S2, with murmur Abdomen: soft, non-tender, globular Extremities: excoriation Neurological: no change, disorganized - Procedures Procedures: Procedures Procedure Code Date ASPIR CURETT UTERUS NEC 69.59 10/29/11 BIOPSY OF CERVIX 00396 09/05/94 CERVICAL LES DESTRUC NEC 67.39 09/05/94 CONTINUOUS INVASIVE MECHANICAL VENTILATION <96 CONSEC HRS 96.71 09/01/14 D & C NEC 69.09 09/05/94 DILATION AND CURETTAGE 94640 10/29/11 EMERGENCY DEPT VISIT 05804 05/28/11 GENITAL SURGERY PROCEDURE 10064 09/05/94 HYMENORRHAPHY 70.76 09/05/94 HYMENOTOMY 70.11 09/05/94 INCISION OF HYMEN 05194 09/05/94 LAPAROSCOPIC CHOLECYSTECTOMY 51.23 11/29/06 LAPAROSCOPIC CHOLECYSTECTOMY 76209 11/29/06 OTHER OPEN UMBILICAL HERNIORRHAPHY 53.49 11/29/06 RPR UMBIL JIHAN BLOCK > 5 YR 37647 11/29/06 Internal Medicine Assmt/Plan - Assessment Assessment: ASSESSMENT AND PLAN: uti Fever, congestion, possible pneumonia, hyponatremia, anemia, chronic obstructive pulmonary disease, seizure, hypertension, diabetes, history of stroke, dementia, hypercholesterolemia. - Plan Plan: PLAN: The patient is on oxygen and bronchodilator treatment. Continue on empiric IV antibiotic. We will review the patient's chest x-ray. We will send for sputum, Gram stain, C and S. We will monitor the patient closely. ua noted, will follow up cx result
[2018-09-14] MEDS: Atorvastatin Calcium 10 MG TAB PO SCH (20:45)
[2018-09-14] MEDS: cefTRIAXone 1 GM in Sodium Chloride 0.9% 50 ML IV SCH (20:46)
[2018-09-15] MEDS: D5-0.9%NS 1,000 ML IV SCH ×3 (06:12→23:26)
[2018-09-15] MEDS: Albuterol Nebulizer 2.5mg/3mL HHN SCH ×4 (06:28→19:28)
[2018-09-15] MEDS: Ipratropium Neb 0.5 mg/2.5 mL UD IH SCH ×4 (06:29→19:28)
[2018-09-15] MEDS: INSULIN LISPRO SLIDING SCALE 100 UNITS/ML UNIT SUBQ SCH ×4 (06:34→20:25)
[2018-09-15] MEDS: Levothyroxine 0.025 Mg Tab PO SCH (06:34)
[2018-09-15 06:49] LABS: % BASOPHILS 0.4 % (0.0-2.0); % EOSINOPHILS 0.6 % (0.0-5.0); % LYMPHOCYTES 13.4 % (20.0-50.0); % MONOCYTES 9.3 % (2.0-10.0); % NEUTROPHILS 76.3 % (40.0-80.0); HEMOGLOBIN 9.1 gm/dL (12-16); LYMPHOCYTE ABSOLUTE 1.1 Th/cmm (1.5-3.0); MEAN CELL VOLUME 87.3 fl (81-100); MEAN CORPUSCULAR HEMOGLOBIN 29.4 pg (27.0-31.0); MEAN CORPUSCULAR HGB CONC 33.7 pg (28.0-36.0); MONOCYTE ABSOLUTE 0.8 Th/cmm (0.3-1.0); NEUTROPHILE ABSOLUTE 6.3 Th/cmm (1.8-8.0); PLATELET COUNT 156 Th/cmm (150-400); RED BLOOD COUNT 3.09 Mil/cmm (3.80-5.20); RED CELL DISTRIBUTION WIDTH 12.4 % (11.5-20.0); WHITE BLOOD COUNT 8.2 Th/cmm (4.8-10.8)
[2018-09-15 07:03] LABS: BUN - UREA NITROGEN 15 mg/dL (7-25); CALCIUM SERUM 8.9 mg/dL (8.6-10.3); CARBON DIOXIDE 31.9 mEq/L (21.0-31.0); CHLORIDE 96 mEq/L (98-107); CREATININE - SERUM 0.8 mg/dL (0.6-1.2); GLUCOSE 138 mg/dL (70-105); MAGNESIUM 1.5 mg/dL (1.9-2.7); POTASSIUM SERUM 3.9 mEq/L (3.5-5.1); SODIUM SERUM 132 mEq/L (136-145)
[2018-09-15] MEDS: Fish Oil 1,000 MG SGL PO SCH ×2 (09:21→16:57)
[2018-09-15] MEDS: Multivitamin w/ Minerals Tab PO SCH (09:23)
[2018-09-15] MEDS: Pantoprazole 40 mg EC Tab PO SCH (09:23)
[2018-09-15] MEDS: Ferrous Sulfate 325 MG TAB PO SCH ×3 (09:23→20:24)
[2018-09-15] MEDS: cefTRIAXone 1 GM in Sodium Chloride 0.9% 50 ML IV SCH ×2 (10:01→20:23)
--- NOTE | 2018-09-15 12:15 | Internal Medicine Prog Note ---
Internal Medicine Subjective - Subjective Patient seen and examined:: with staff, chart reviewed Patient is:: awake, non-verbal, non-interactive, in bed, confused Patient Complaints of:: congestion Per staff patient has:: no adverse event, no episodes of fall, poor appetite, gagging Internal Medicine Objective - Results Result Diagrams: 09/15/18 06:10 09/15/18 06:10 Recent Labs: Laboratory Last Values WBC 8.2 Th/cmm (4.8-10.8) 09/15/18 06:10 RBC 3.09 Mil/cmm (3.80-5.20) L 09/15/18 06:10 Hgb 9.1 gm/dL (12-16) L 09/15/18 06:10 Hct 27.0 % (41.0-60) L 09/15/18 06:10 MCV 87.3 fl (81-100) 09/15/18 06:10 MCH 29.4 pg (27.0-31.0) 09/15/18 06:10 MCHC Differential 33.7 pg (28.0-36.0) 09/15/18 06:10 RDW 12.4 % (11.5-20.0) 09/15/18 06:10 Plt Count 156 Th/cmm (150-400) 09/15/18 06:10 MPV 6.3 fl 09/15/18 06:10 Add Manual Diff YES 09/14/18 04:20 Neutrophils % 76.3 % (40.0-80.0) 09/15/18 06:10 Band Neutrophils % 1 % (0-10) 09/14/18 04:20 Lymphocytes % 13.4 % (20.0-50.0) L 09/15/18 06:10 Monocytes % 9.3 % (2.0-10.0) 09/15/18 06:10 Eosinophils % 0.6 % (0.0-5.0) 09/15/18 06:10 Basophils % 0.4 % (0.0-2.0) 09/15/18 06:10 Neutrophils (Manual) 85 % (40-80) H 09/14/18 04:20 Lymphocytes 8 % (20-50) L 09/14/18 04:20 Monocytes 6 % (2-10) 09/14/18 04:20 Eosinophils 0 % (0-5) 09/14/18 04:20 Basophils 0 % (0-3) 09/14/18 04:20 Sodium 132 mEq/L (136-145) L 09/15/18 06:10 Potassium 3.9 mEq/L (3.5-5.1) 09/15/18 06:10 Chloride 96 mEq/L (98-107) L 09/15/18 06:10 Carbon Dioxide 31.9 mEq/L (21.0-31.0) H 09/15/18 06:10 Anion Gap 8.0 (7.0-16.0) 09/15/18 06:10 BUN 15 mg/dL (7-25) 09/15/18 06:10 Creatinine 0.8 mg/dL (0.6-1.2) 09/15/18 06:10 Est GFR ( Amer) TNP 09/15/18 06:10 Est GFR (Non-Af Amer) TNP 09/15/18 06:10 BUN/Creatinine Ratio 18.8 09/15/18 06:10 Glucose 138 mg/dL (70-105) H 09/15/18 06:10 POC Glucose 117 MG/DL (70-105) H 09/15/18 05:44 Calcium 8.9 mg/dL (8.6-10.3) 09/15/18 06:10 Magnesium 1.5 mg/dL (1.9-2.7) L 09/15/18 06:10 Total Bilirubin 0.3 mg/dL (0.3-1.0) 09/14/18 04:20 AST 19 U/L (13-39) 09/14/18 04:20 ALT 19 U/L (7-52) 09/14/18 04:20 Alkaline Phosphatase 103 U/L (34-104) 09/14/18 04:20 Ammonia 53 umol/L (16-53) 09/14/18 04:20 B-Natriuretic Peptide 310.0 pg/mL (5.0-100.0) H 09/15/18 06:10 Total Protein 6.5 gm/dL (6.0-8.3) 09/14/18 04:20 Albumin 3.4 gm/dL (3.7-5.3) L 09/14/18 04:20 Globulin 3.1 gm/dL 09/14/18 04:20 Albumin/Globulin Ratio 1.1 (1.0-1.8) 09/14/18 04:20 TSH 3.48 uIU/ml (0.34-5.60) 09/13/18 10:15 Urine Source CATH 09/13/18 23:00 Urine Color YELLOW 09/13/18 23:00 Urine Clarity HAZY (CLEAR) 09/13/18 23:00 Urine pH 6.5 (4.6 - 8.0) 09/13/18 23:00 Ur Specific [place] 1.010 (1.005-1.030) 09/13/18 23:00 Urine Protein 30 mg/dL (NEGATIVE) H 09/13/18 23:00 Urine Glucose (UA) NEGATIVE mg/dL (NEGATIVE) 09/13/18 23:00 Urine Ketones NEGATIVE mg/dL (NEGATIVE) 09/13/18 23:00 Urine Blood TRACE (NEGATIVE) 09/13/18 23:00 Urine Nitrate POSITIVE (NEGATIVE) H 09/13/18 23:00 Urine Bilirubin NEGATIVE (NEGATIVE) 09/13/18 23:00 Urine Urobilinogen 0.2 E.U./dL (0.2 - 1.0) 09/13/18 23:00 Ur Leukocyte Esterase LARGE (NEGATIVE) H 09/13/18 23:00 Urine RBC 0-2 /hpf (0-5) 09/13/18 23:00 Urine WBC 25-50 /hpf (0-5) H 09/13/18 23:00 Ur Epithelial Cells MANY /lpf (FEW) 09/13/18 23:00 Urine Bacteria MODERATE /hpf (NONE SEEN) H 09/13/18 23:00 - Physical Exam Vitals and I&O: Vital Signs Temp 97.2 F 09/15/18 11:49 Pulse 82 09/15/18 11:49 Resp 19 09/15/18 11:49 BP 134/57 09/15/18 11:49 Pulse Ox 99 09/15/18 11:49 Intake & Output 09/14/18 09/15/18 09/15/18 18:59 06:59 18:59 Intake Total 3789.056 9491 Output Total 30 Balance 5771.622 6448 Weight (lbs) 61.235 kg 68.039 kg Intake: Intake, IV Amount 272.124 6944 D5-0.9%Ns 1,000 ml @ 80 578.439 4425 mls/hr IV .[id number] [facility] Rx #:[id number] cefTRIAXone 1 gm In 50 Sodium Chloride 0.9% 50 ml @ 100 mls/hr IV Q12HR [facility] Rx#:[id number] Oral 605 200 Output: Urine 30 Other: # Voids 3 Weight Source Bedscale Estimated Active Medications: Current Medications Acetaminophen (Tylenol) 650 mg PO Q4H PRN PRN Reason: Pain Or Fever above 99.9 Stop: 11/12/18 12:23 Last Admin: 09/13/18 19:35 Dose: 650 mg Albuterol Sulfate (Albuterol 2.5mg/3ml Neb Ud) 2.5 mg HHN QIDRT [facility] Stop: 11/12/18 14:59 Last Admin: 09/15/18 06:28 Dose: 2.5 mg Ascorbic Acid (Vitamin C) 500 mg PO BID [facility] Stop: 11/12/18 16:59 Last Admin: 09/14/18 16:14 Dose: 500 mg Aspirin (Ecotrin) 81 mg PO DAILY [facility] Stop: 11/13/18 08:59 Last Admin: 09/14/18 08:29 Dose: 81 mg Atorvastatin Calcium (Lipitor) 20 mg PO HS [facility] Stop: 11/12/18 20:59 Last Admin: 09/14/18 20:45 Dose: 20 mg Bisacodyl (Dulcolax 10 Mg Supp) 10 mg RC PRN PRN PRN Reason: IF MOM INEFFECTIVE Stop: 11/12/18 12:23 Calamine/Phenol (Calmoseptine) 1 appl TP PRN PRN PRN Reason: AFTER EACH INCONTINENCE Cyanocobalamin (Vitamin B12) 1,000 mcg PO DAILY [facility] Stop: 11/13/18 08:59 Last Admin: 09/14/18 08:29 Dose: 1,000 mcg Dextrose (D50w) 50 ml IVP PRN PRN PRN Reason: BS Below 70&not tolerate po Stop: 11/12/18 12:26 Dextrose (Glutose 40%) 18.75 gm PO PRN PRN PRN Reason: BS Below 70 & tolerate po Stop: 11/12/18 12:26 Ferrous Sulfate (Iron) 325 mg PO TID [facility] Stop: 11/12/18 13:59 Last Admin: 09/14/18 20:46 Dose: 325 mg Fish Oil ([place] 3) 1,000 mg PO BID [facility] Stop: 11/12/18 16:59 Last Admin: 09/14/18 16:13 Dose: 1,000 mg Glucagon (Glucagen) 1 mg IM PRN PRN PRN Reason: BS Below 70&dextrose ineffecti Stop: 11/12/18 12:26 Guaifenesin (Robitussin) 200 mg PO Q4HR PRN PRN Reason: Cough or Congestion Stop: 11/12/18 12:27 Last Admin: 09/14/18 09:35 Dose: 200 mg Hydralazine HCl (Apresoline) 100 mg PO BID [facility] Stop: 11/12/18 16:59 Last Admin: 09/14/18 16:13 Dose: 100 mg Ceftriaxone Sodium 1 gm/ (Sodium Chloride) 50 mls @ 100 mls/hr IV Q12HR [facility] Stop: 11/13/18 20:59 Last Admin: 09/15/18 10:01 Dose: 100 mls/hr Insulin Human Lispro (Humalog Insulin Sliding Scale) 0 units SUBQ ACHS [facility]; Protocol Stop: 11/12/18 16:29 Last Admin: 09/15/18 06:34 Dose: Not Given Ipratropium [place] (Atrovent Neb 0.5mg/2.5ml) 0.5 mg IH QIDRT [facility] Stop: 11/12/18 14:59 Last Admin: 09/15/18 06:29 Dose: 0.5 mg Levetiracetam (Keppra) 500 mg PO BID [facility] Stop: 11/12/18 16:59 Last Admin: 09/14/18 16:13 Dose: 500 mg Levothyroxine Sodium (Synthroid) 0.025 mg PO QDAC [facility] Stop: 11/13/18 07:29 Last Admin: 09/15/18 06:34 Dose: 0.025 mg Lisinopril (Zestril) 20 mg PO BID [facility] Stop: 11/12/18 16:59 Last Admin: 09/14/18 16:13 Dose: 20 mg Magnesium Hydroxide (Milk Of Magnesia) 30 ml PO DAILY PRN PRN Reason: IF NO BM IN TWO DAYS Stop: 11/12/18 12:23 Metformin HCl (Glucophage) 500 mg PO DAILY [facility] Stop: 11/13/18 08:59 Last Admin: 09/14/18 08:28 Dose: 500 mg Ondansetron HCl (Zofran) 4 mg IV Q8H PRN PRN Reason: Nausea / Vomiting Stop: 11/12/18 12:26 Pantoprazole Sodium (Protonix) 40 mg PO DAILY [facility] Stop: 11/13/18 08:59 Last Admin: 09/14/18 08:29 Dose: 40 mg Risperidone (Risperdal) 1 mg PO HS [facility]; Protocol Stop: 11/12/18 20:59 Sodium Phosphate (Fleet Enema) 135 ml RC Q72H PRN PRN Reason: IF DULCOLAX INEFFECTIVE Stop: 11/12/18 12:23 Vitamin A (Vitamin A & D) 5 gm TP PRN PRN PRN Reason: AFTER EACH INCONTINENCE Vitamin D (Vitamin D) 800 iu PO DAILY [facility] Stop: 11/13/18 08:59 Last Admin: 09/14/18 08:27 Dose: 800 iu General: demented, appears younger HEENT: NC/AT, PERRLA, EOMI Neck: Supple Lungs: congested, rales Cardiovascular: RRR, Normal S1, Normal S2, with murmur Abdomen: soft, non-tender, globular Extremities: excoriation Neurological: no change, disorganized - Procedures Procedures: Procedures Procedure Code Date ASPIR CURETT UTERUS NEC 69.59 10/29/11 BIOPSY OF CERVIX 94297 09/05/94 CERVICAL LES DESTRUC NEC 67.39 09/05/94 CONTINUOUS INVASIVE MECHANICAL VENTILATION <96 CONSEC HRS 96.71 09/01/14 D & C NEC 69.09 09/05/94 DILATION AND CURETTAGE 89772 10/29/11 EMERGENCY DEPT VISIT 50647 05/28/11 GENITAL SURGERY PROCEDURE 04356 09/05/94 HYMENORRHAPHY 70.76 09/05/94 HYMENOTOMY 70.11 09/05/94 INCISION OF HYMEN 04589 09/05/94 LAPAROSCOPIC CHOLECYSTECTOMY 51.23 11/29/06 LAPAROSCOPIC CHOLECYSTECTOMY 57960 11/29/06 OTHER OPEN UMBILICAL HERNIORRHAPHY 53.49 11/29/06 RPR UMBIL JIHAN BLOCK > 5 YR 38087 11/29/06 Internal Medicine Assmt/Plan - Assessment Assessment: ASSESSMENT AND PLAN: uti Fever, congestion, possible pneumonia, hyponatremia, anemia, chronic obstructive pulmonary disease, seizure, hypertension, diabetes, history of stroke, dementia, hypercholesterolemia. - Plan Plan: PLAN: The patient is on oxygen and bronchodilator treatment. Continue on empiric IV antibiotic. We will review the patient's chest x-ray. We will send for sputum, Gram stain, C and S. We will monitor the patient closely. ua noted, will follow up cx result replace magnesium
[2018-09-15] MEDS ORDERED: Mag Sulfate 2gm/50mL Premix 2 GM/50 ML BAG IV ONE (13:30)
[2018-09-15] MEDS: Atorvastatin Calcium 10 MG TAB PO SCH (20:24)
[2018-09-16 05:48] LABS: ANION GAP 8.7 (7.0-16.0); BUN - UREA NITROGEN 14 mg/dL (7-25); CALCIUM SERUM 9.2 mg/dL (8.6-10.3); CARBON DIOXIDE 31.4 mEq/L (21.0-31.0); CHLORIDE 98 mEq/L (98-107); CREATININE - SERUM 0.9 mg/dL (0.6-1.2); GLUCOSE 119 mg/dL (70-105); POTASSIUM SERUM 4.1 mEq/L (3.5-5.1); SODIUM SERUM 134 mEq/L (136-145)
[2018-09-16] MEDS: INSULIN LISPRO SLIDING SCALE 100 UNITS/ML UNIT SUBQ SCH ×4 (06:44→20:47)
[2018-09-16] MEDS: Levothyroxine 0.025 Mg Tab PO SCH (06:57)
[2018-09-16] MEDS: Albuterol Nebulizer 2.5mg/3mL HHN SCH ×3 (07:23→18:42)
[2018-09-16] MEDS: Ipratropium Neb 0.5 mg/2.5 mL UD IH SCH ×3 (07:23→18:43)
[2018-09-16] MEDS: cefTRIAXone 1 GM in Sodium Chloride 0.9% 50 ML IV SCH (09:05)
[2018-09-16] MEDS: Multivitamin w/ Minerals Tab PO SCH (09:06)
[2018-09-16] MEDS: Fish Oil 1,000 MG SGL PO SCH ×2 (09:06→16:53)
[2018-09-16] MEDS: Pantoprazole 40 mg EC Tab PO SCH (09:07)
[2018-09-16] MEDS: Ferrous Sulfate 325 MG TAB PO SCH ×3 (09:07→21:04)
--- NOTE | 2018-09-16 11:31 | Internal Medicine Prog Note ---
Internal Medicine Subjective - Subjective Patient seen and examined:: with staff, chart reviewed Patient is:: awake, non-verbal, non-interactive, in bed, confused Patient Complaints of:: congestion Per staff patient has:: no adverse event, no episodes of fall, poor appetite, gagging Internal Medicine Objective - Results Result Diagrams: 09/15/18 06:10 09/16/18 05:00 Recent Labs: Laboratory Last Values WBC 8.2 Th/cmm (4.8-10.8) 09/15/18 06:10 RBC 3.09 Mil/cmm (3.80-5.20) L 09/15/18 06:10 Hgb 9.1 gm/dL (12-16) L 09/15/18 06:10 Hct 27.0 % (41.0-60) L 09/15/18 06:10 MCV 87.3 fl (81-100) 09/15/18 06:10 MCH 29.4 pg (27.0-31.0) 09/15/18 06:10 MCHC Differential 33.7 pg (28.0-36.0) 09/15/18 06:10 RDW 12.4 % (11.5-20.0) 09/15/18 06:10 Plt Count 156 Th/cmm (150-400) 09/15/18 06:10 MPV 6.3 fl 09/15/18 06:10 Add Manual Diff YES 09/14/18 04:20 Neutrophils % 76.3 % (40.0-80.0) 09/15/18 06:10 Band Neutrophils % 1 % (0-10) 09/14/18 04:20 Lymphocytes % 13.4 % (20.0-50.0) L 09/15/18 06:10 Monocytes % 9.3 % (2.0-10.0) 09/15/18 06:10 Eosinophils % 0.6 % (0.0-5.0) 09/15/18 06:10 Basophils % 0.4 % (0.0-2.0) 09/15/18 06:10 Neutrophils (Manual) 85 % (40-80) H 09/14/18 04:20 Lymphocytes 8 % (20-50) L 09/14/18 04:20 Monocytes 6 % (2-10) 09/14/18 04:20 Eosinophils 0 % (0-5) 09/14/18 04:20 Basophils 0 % (0-3) 09/14/18 04:20 Sodium 134 mEq/L (136-145) L 09/16/18 05:00 Potassium 4.1 mEq/L (3.5-5.1) 09/16/18 05:00 Chloride 98 mEq/L (98-107) 09/16/18 05:00 Carbon Dioxide 31.4 mEq/L (21.0-31.0) H 09/16/18 05:00 Anion Gap 8.7 (7.0-16.0) 09/16/18 05:00 BUN 14 mg/dL (7-25) 09/16/18 05:00 Creatinine 0.9 mg/dL (0.6-1.2) 09/16/18 05:00 Est GFR ( Amer) TNP 09/16/18 05:00 Est GFR (Non-Af Amer) TNP 09/16/18 05:00 BUN/Creatinine Ratio 15.6 09/16/18 05:00 Glucose 119 mg/dL (70-105) H 09/16/18 05:00 POC Glucose 107 MG/DL (70 - 105) H 09/16/18 06:00 Calcium 9.2 mg/dL (8.6-10.3) 09/16/18 05:00 Magnesium 2.0 mg/dL (1.9-2.7) 09/16/18 05:00 Total Bilirubin 0.3 mg/dL (0.3-1.0) 09/14/18 04:20 AST 19 U/L (13-39) 09/14/18 04:20 ALT 19 U/L (7-52) 09/14/18 04:20 Alkaline Phosphatase 103 U/L (34-104) 09/14/18 04:20 Ammonia 53 umol/L (16-53) 09/14/18 04:20 B-Natriuretic Peptide 310.0 pg/mL (5.0-100.0) H 09/15/18 06:10 Total Protein 6.5 gm/dL (6.0-8.3) 09/14/18 04:20 Albumin 3.4 gm/dL (3.7-5.3) L 09/14/18 04:20 Globulin 3.1 gm/dL 09/14/18 04:20 Albumin/Globulin Ratio 1.1 (1.0-1.8) 09/14/18 04:20 TSH 3.48 uIU/ml (0.34-5.60) 09/13/18 10:15 Urine Source CATH 09/13/18 23:00 Urine Color YELLOW 09/13/18 23:00 Urine Clarity HAZY (CLEAR) 09/13/18 23:00 Urine pH 6.5 (4.6 - 8.0) 09/13/18 23:00 Ur Specific [place] 1.010 (1.005-1.030) 09/13/18 23:00 Urine Protein 30 mg/dL (NEGATIVE) H 09/13/18 23:00 Urine Glucose (UA) NEGATIVE mg/dL (NEGATIVE) 09/13/18 23:00 Urine Ketones NEGATIVE mg/dL (NEGATIVE) 09/13/18 23:00 Urine Blood TRACE (NEGATIVE) 09/13/18 23:00 Urine Nitrate POSITIVE (NEGATIVE) H 09/13/18 23:00 Urine Bilirubin NEGATIVE (NEGATIVE) 09/13/18 23:00 Urine Urobilinogen 0.2 E.U./dL (0.2 - 1.0) 09/13/18 23:00 Ur Leukocyte Esterase LARGE (NEGATIVE) H 09/13/18 23:00 Urine RBC 0-2 /hpf (0-5) 09/13/18 23:00 Urine WBC 25-50 /hpf (0-5) H 09/13/18 23:00 Ur Epithelial Cells MANY /lpf (FEW) 09/13/18 23:00 Urine Bacteria MODERATE /hpf (NONE SEEN) H 09/13/18 23:00 - Physical Exam Vitals and I&O: Vital Signs Temp 98.0 F 09/16/18 08:00 Pulse 100 09/16/18 10:47 Resp 18 09/16/18 10:47 BP 152/64 09/16/18 09:07 Pulse Ox 97 09/16/18 10:47 Intake & Output 09/15/18 09/16/18 09/16/18 18:59 06:59 18:59 Intake Total 350 624.167 Output Total 2 Balance 350 622.167 Weight (lbs) 58.967 kg 58.967 kg Intake: Intake, IV Amount 50 564.167 D5-0.9%Ns 1,000 ml @ 50 514.167 mls/hr IV .Q20H [facility] Rx#: [id number] cefTRIAXone 1 gm In 50 50 Sodium Chloride 0.9% 50 ml @ 100 mls/hr IV Q12HR [facility] Rx#:[id number] Oral 300 60 Output: Urine 2 Other: # Voids 3 3 # Bowel Movements 0 0 Weight Source Bedscale Bedscale Active Medications: Current Medications Acetaminophen (Tylenol) 650 mg PO Q4H PRN PRN Reason: Pain Or Fever above 99.9 Stop: 11/12/18 12:23 Last Admin: 09/16/18 09:09 Dose: 650 mg Albuterol Sulfate (Albuterol 2.5mg/3ml Neb Ud) 2.5 mg HHN QIDRT [facility] Stop: 11/12/18 14:59 Last Admin: 09/16/18 10:47 Dose: 2.5 mg Ascorbic Acid (Vitamin C) 500 mg PO BID [facility] Stop: 11/12/18 16:59 Last Admin: 09/16/18 09:07 Dose: 500 mg Aspirin (Ecotrin) 81 mg PO DAILY [facility] Stop: 11/13/18 08:59 Last Admin: 09/16/18 09:07 Dose: 81 mg Atorvastatin Calcium (Lipitor) 20 mg PO HS [facility] Stop: 11/12/18 20:59 Last Admin: 09/15/18 20:24 Dose: 20 mg Bisacodyl (Dulcolax 10 Mg Supp) 10 mg RC PRN PRN PRN Reason: IF MOM INEFFECTIVE Stop: 11/12/18 12:23 Calamine/Phenol (Calmoseptine) 1 appl TP PRN PRN PRN Reason: AFTER EACH INCONTINENCE Cyanocobalamin (Vitamin B12) 1,000 mcg PO DAILY [facility] Stop: 11/13/18 08:59 Last Admin: 09/16/18 09:07 Dose: 1,000 mcg Dextrose (D50w) 50 ml IVP PRN PRN PRN Reason: BS Below 70&not tolerate po Stop: 11/12/18 12:26 Dextrose (Glutose 40%) 18.75 gm PO PRN PRN PRN Reason: BS Below 70 & tolerate po Stop: 11/12/18 12:26 Ferrous Sulfate (Iron) 325 mg PO TID [facility] Stop: 11/12/18 13:59 Last Admin: 09/16/18 09:07 Dose: 325 mg Fish Oil ([place] 3) 1,000 mg PO BID [facility] Stop: 11/12/18 16:59 Last Admin: 09/16/18 09:06 Dose: 1,000 mg Glucagon (Glucagen) 1 mg IM PRN PRN PRN Reason: BS Below 70&dextrose ineffecti Stop: 11/12/18 12:26 Guaifenesin (Robitussin) 200 mg PO Q4HR PRN PRN Reason: Cough or Congestion Stop: 11/12/18 12:27 Last Admin: 09/14/18 09:35 Dose: 200 mg Hydralazine HCl (Apresoline) 100 mg PO BID [facility] Stop: 11/12/18 16:59 Last Admin: 09/16/18 09:06 Dose: 100 mg Ceftriaxone Sodium 1 gm/ (Sodium Chloride) 50 mls @ 100 mls/hr IV Q12HR [facility] Stop: 11/13/18 20:59 Last Admin: 09/16/18 09:05 Dose: 100 mls/hr Dextrose/Sodium Chloride (D5-0.9%Ns) 1,000 mls @ 50 mls/hr IV .Q20H [facility] Stop: 11/14/18 12:14 Last Admin: 09/15/18 23:26 Dose: 50 mls/hr Insulin Human Lispro (Humalog Insulin Sliding Scale) 0 units SUBQ ACHS [facility]; Protocol Stop: 11/12/18 16:29 Last Admin: 09/16/18 06:44 Dose: Not Given Ipratropium [place] (Atrovent Neb 0.5mg/2.5ml) 0.5 mg IH QIDRT [facility] Stop: 11/12/18 14:59 Last Admin: 09/16/18 10:47 Dose: 0.5 mg Levetiracetam (Keppra) 500 mg PO BID [facility] Stop: 11/12/18 16:59 Last Admin: 09/16/18 09:06 Dose: 500 mg Levothyroxine Sodium (Synthroid) 0.025 mg PO QDAC [facility] Stop: 11/13/18 07:29 Last Admin: 09/16/18 06:57 Dose: 0.025 mg Lisinopril (Zestril) 20 mg PO BID [facility] Stop: 11/12/18 16:59 Last Admin: 09/16/18 09:07 Dose: 20 mg Magnesium Hydroxide (Milk Of Magnesia) 30 ml PO DAILY PRN PRN Reason: IF NO BM IN TWO DAYS Stop: 11/12/18 12:23 Metformin HCl (Glucophage) 500 mg PO DAILY [facility] Stop: 11/13/18 08:59 Last Admin: 09/16/18 09:07 Dose: 500 mg Ondansetron HCl (Zofran) 4 mg IV Q8H PRN PRN Reason: Nausea / Vomiting Stop: 11/12/18 12:26 Pantoprazole Sodium (Protonix) 40 mg PO DAILY [facility] Stop: 11/13/18 08:59 Last Admin: 09/16/18 09:07 Dose: 40 mg Risperidone (Risperdal) 1 mg PO HS [facility]; Protocol Stop: 11/12/18 20:59 Sodium Phosphate (Fleet Enema) 135 ml RC Q72H PRN PRN Reason: IF DULCOLAX INEFFECTIVE Stop: 11/12/18 12:23 Vitamin A (Vitamin A & D) 5 gm TP PRN PRN PRN Reason: AFTER EACH INCONTINENCE Vitamin D (Vitamin D) 800 iu PO DAILY [facility] Stop: 11/13/18 08:59 Last Admin: 09/16/18 09:06 Dose: 800 iu General: demented, appears younger HEENT: NC/AT, PERRLA, EOMI Neck: Supple Lungs: congested, rales Cardiovascular: RRR, Normal S1, Normal S2, with murmur Abdomen: soft, non-tender, globular Extremities: excoriation Neurological: no change, disorganized - Procedures Procedures: Procedures Procedure Code Date ASPIR CURETT UTERUS NEC 69.59 10/29/11 BIOPSY OF CERVIX 44762 09/05/94 CERVICAL LES DESTRUC NEC 67.39 09/05/94 CONTINUOUS INVASIVE MECHANICAL VENTILATION <96 CONSEC HRS 96.71 09/01/14 D & C NEC 69.09 09/05/94 DILATION AND CURETTAGE 56043 10/29/11 EMERGENCY DEPT VISIT 55929 05/28/11 GENITAL SURGERY PROCEDURE 82376 09/05/94 HYMENORRHAPHY 70.76 09/05/94 HYMENOTOMY 70.11 09/05/94 INCISION OF HYMEN 59382 09/05/94 LAPAROSCOPIC CHOLECYSTECTOMY 51.23 09/16/07 LAPAROSCOPIC CHOLECYSTECTOMY 54181 11/29/06 OTHER OPEN UMBILICAL HERNIORRHAPHY 53.49 11/29/06 RPR UMBIL JIHAN BLOCK > 5 YR 45250 11/29/06 Internal Medicine Assmt/Plan - Assessment Assessment: ASSESSMENT AND PLAN: uti Fever, congestion, possible pneumonia, hyponatremia, anemia, chronic obstructive pulmonary disease, seizure, hypertension, diabetes, history of stroke, dementia, hypercholesterolemia. - Plan Plan: PLAN: The patient is on oxygen and bronchodilator treatment. Continue on empiric IV antibiotic. We will review the patient's chest x-ray. We will send for sputum, Gram stain, C and S. We will monitor the patient closely. ua noted, will follow up cx result replace magnesium Nutritional Asmnt/Malnutr-PDOC - Dietary Evaluation Malnutrition Findings (Please click <Entered> for more info): Nutritional Asmnt/Malnutrition Start: 09/16/18 11: 04 Text: Status: Active Freq: Protocol: Document 09/16/18 11:05 NORA (Rec: 09/16/18 11:15 NORA [id number]) Nutritional Asmnt/Malnutrition Patient General Information Nutritional Screening Moderate Risk Diagnosis HYPONATREMIA, FEVER, POSSIBLE PNA Pertinent Medical Hx/Surgical Hx COPD, SEIZURE, HTN, DM, STROKE , DEMENTIA Subjective Information PT IS A 78 YEAR OLD FEMALE ADMITTED ON 09/13 FROM [facility] D/T FEVER AND COUGH, NOTED LOW SODIUM IN ER. HT: 49 WT: 130 LB (59.10 KG) BMI: 28.13 (OVERWEIGHT) GI: WNL, SOFT, NON-TENDER, ROUND BM: NOT NOTED I/O: 974.167/2 (+972.167) SKIN: WNL, WARM, DRY, LOOSE, INTACT, LT ARM REDNESS, LT LOWER ARM BRUISE KATI: 13 DIET ORDER: PUREED, CCHO 60GM, NCS, KYLAH, HTL ESTIMATED ENERGY NEEDS: ( GERIATRIC ,CBW) 4218-0368 KCALS (25-30 KCALS/ KG) 59-71 G PRO (1.0-1.2 G/KG) 9685-0435 ML (25-30 ML/KG) PT PO INTAKE: 60% MEALS X 2 DAYS, PER MEAL/NUTRITION ACTIVITY RECORD. DIETARY IS CURRENTLY PROVIDING AN ESTIMATED 2700 KCALS AND 120 GM PRO. PER PT PO INTAKE, THIS IS PROVIDING AN ESTIMATED 1620 KCALS AND 70 GM PRO, TO MEET 100% KCAL AND 100% PRO NEEDS. Current Diet Order/ Nutrition Support PUREED, CCHO 60GM, NCS, KYLAH, HTL Pertinent Medications ALBUTEROL, VIT C, LIPITOR, DULCOLAX (PRN), VIT B12, D50W (PRN), GLUTOSE 40% (PRN), FERROUS SULFATE, FISH OIL, GLUCAGON (PRN), INS-SS, SYNTHROID, MOM (PRN), GLUCOPHAGE, ZOFRAN (PRN), PROTONIX, FLEET ENEMA (PRN), VIT A & D, VIT D Pertinent Labs 09/16: NA 134, GLUC 119, POC GLUC 107 09/15: HGB/HCT 9.1/27.0, POC GLUC 131,156,168 Nutritional Hx/Data Height 1.45 m Height (Calculated Centimeters) 144.8 Current Weight (lbs) 58.967 kg Weight (Calculated Kilograms) 59.0 Weight (Calculated Grams) 32594.0 [place] Body Weight 94 % [place] Body Weight 72 Body Mass Index (BMI) 28.1 Weight Status Approriate GI Symptoms GI Symptoms None Last BM NOT NOTED Skin Integrity/Comment: WNL, WARM, DRY, LOOSE, INTACT, LT ARM REDNESS, LT LOWER ARM BRUISE Current %PO Fair (50-74%) Estimated Nutritional Goals BEE in Kcals: Using Current wt Calories/Kcals/Kg 25-30 Kcals Calculated 2699-5648 Protein: Using Current wt Protein g/k.0-1.2 Protein Calculated 59-71 Fluid: ml 7969-0829 ML (25-30 ML/KG) Nutritional Problem 1. Problem Problem ALTERED NUTRITION RELATED LAB Etiology R/T ENDOCRINE DYSFUNCTION Signs/Symptoms: AEB HX DM AND GLUC 107-168 Malnutrition Related to Morbid Obesity Malnutrition related to morbid obesity No Intervention/Recommendation Comments 1. CONTINUE WITH PURRED, CCHO 60GM, NCS, KYLAH, HTL DIET ORDERED. 2. CONTINUE ANTIHYPERGLYCEMIC MEDICATIONS PER MD ORDER. Expected Outcomes/Goals Expected Outcomes/Goals 1.PO INTAKE TO MEET > 75% OF NUTRITIONAL NEEDS. 2.MONITOR PO INTAKE, WT, NUTRITION RELATED LABS AND SKIN INTEGRITY. 3.F/U LOW RISK IN 7 DAYS,
[2018-09-16] MEDS: Meropenem 500 MG in Sodium Chloride 0.9% 100 ML IV SCH (18:01)
[2018-09-16] MEDS: Atorvastatin Calcium 10 MG TAB PO SCH (21:03)
[2018-09-16] MEDS: D5-0.9%NS 1,000 ML IV SCH (23:59)
[2018-09-17] MEDS: Meropenem 500 MG in Sodium Chloride 0.9% 100 ML IV SCH ×2 (05:11→16:30)
[2018-09-17 06:22] LABS: % BASOPHILS 0.3 % (0.0-2.0); % EOSINOPHILS 1.6 % (0.0-5.0); % LYMPHOCYTES 14.3 % (20.0-50.0); % MONOCYTES 12.4 % (2.0-10.0); % NEUTROPHILS 71.4 % (40.0-80.0); EOSINOPHILE ABSOLUTE 0.1 Th/cmm (0.1-0.4); HEMATOCRIT 27.8 % (41.0-60); HEMOGLOBIN 9.2 gm/dL (12-16); MEAN CELL VOLUME 87.8 fl (81-100); MEAN CORPUSCULAR HEMOGLOBIN 29.1 pg (27.0-31.0); MEAN CORPUSCULAR HGB CONC 33.2 pg (28.0-36.0); MONOCYTE ABSOLUTE 0.9 Th/cmm (0.3-1.0); PLATELET COUNT 162 Th/cmm (150-400); RED BLOOD COUNT 3.16 Mil/cmm (3.80-5.20); RED CELL DISTRIBUTION WIDTH 12.6 % (11.5-20.0)
[2018-09-17] MEDS: Levothyroxine 0.025 Mg Tab PO SCH (06:50)
[2018-09-17] MEDS: INSULIN LISPRO SLIDING SCALE 100 UNITS/ML UNIT SUBQ SCH ×3 (06:51→16:11)
[2018-09-17] MEDS: Albuterol Nebulizer 2.5mg/3mL HHN SCH ×2 (07:43→11:16)
[2018-09-17] MEDS: Ipratropium Neb 0.5 mg/2.5 mL UD IH SCH ×2 (07:43→11:16)
[2018-09-17] MEDS: Multivitamin w/ Minerals Tab PO SCH (08:40)
[2018-09-17] MEDS: Ferrous Sulfate 325 MG TAB PO SCH ×2 (08:43→14:30)
[2018-09-17] MEDS: Fish Oil 1,000 MG SGL PO SCH ×2 (08:43→16:29)
[2018-09-17] MEDS: Pantoprazole 40 mg EC Tab PO SCH (08:43)
--- NOTE | 2018-09-17 14:12 | Discharge Summary ---
DATE OF DISCHARGE: 09/17/2018 CHIEF COMPLAINT: Fever and congestion. FINAL DIAGNOSES: Fever, congestion, UTI, ESBL, COPD, seizure, hypertension, diabetes, history of stroke, dementia, hypercholesterolemia. HISTORY: This is a 78-year-old female with history of COPD, seizure, hypertension, diabetes, history of stroke, dementia, admitted from nursing facility secondary to fever of 101, congestion. The patient had equivocal infiltrates on chest x-ray. The patient has tested positive for UTI, grew Klebsiella pneumoniae, ESBL. The patient to continue on IV antibiotic. CONDITION ON DISCHARGE: Fair. Oropharynx poor. DISCHARGE INSTRUCTIONS: The patient to continue IV Merrem for 5-7 days and will be discharged [facility]. [facility]# [id number]
== END 2018-09-17 16:32 | DRG 871 ==
LOC: ER 09:58 → MSI 12:22
PROVIDERS: ADMIT Internal Medicine; ATTEND Internal Medicine
DX: A41.9 Sepsis, unspecified organism (principal); R53.2 Functional quadriplegia; N39.0 Urinary tract infection, site not specified; E87.1 Hypo-osmolality and hyponatremia; F20.0 Paranoid schizophrenia; J44.9 Chronic obstructive pulmonary disease, unspecified; R56.9 Unspecified convulsions; I10 Essential (primary) hypertension; E11.9 Type 2 diabetes mellitus without complications; E78.00 Pure hypercholesterolemia, unspecified; F03.90 Unspecified dementia, unspecified severity, without behavioral disturbance, psychotic disturbance, mood disturbance, and anxiety; B96.1 Klebsiella pneumoniae [K. pneumoniae] as the cause of diseases classified elsewhere; Z86.73 Personal history of transient ischemic attack (TIA), and cerebral infarction without residual deficits; Z79.899 Other long term (current) drug therapy
CPT/HCPCS: 36415-UA; 71045-TC; 80048-TC; 80053-TC; 81001-TC; 81003-TC; 82140-TC; 82948-90; 83735-TC; 83880-TC; 84443-TC; 85007-TC; 85025-TC; 87086-90; 90779; 94640; 94760; J0696; J2185; J3475; J7042; J7613; Z7610